=== PATIENT | female | born 1975 | race Caucasian/White ===

== ENCOUNTER → 2021-04-14 11:25 | Outpatient (BNVA) | payer SELFPAY | PROVIDERS: Visit Provider Nurse Practitioner Family | DX: Z20.822 Contact with and (suspected) exposure to COVID-19 (principal) | CPT/HCPCS: 87426 ==

== ENCOUNTER 2021-06-06 11:05 | Observation (INO) | payer OTHER, SELFPAY ==
[2021-06-06 11:21] VITALS: BP 125/80; PULSE 95; RESP 16; TEMP 36.9; O2SAT 97; BMI 25.7
--- NOTE | 2021-06-06 11:38 | ECG_ITS ---
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 Measurements Intervals [place] Rate: 93 P: 45 LA: 152 QRS: 41 QRSD: 89 T: 26 QT: 326 QTc: 407 Interpretive Statements SINUS RHYTHM MODERATE T-WAVE ABNORMALITY, CONSIDER ANTERIOR ISCHEMIA [-0.1+ mV T-WAVE IN V3/V4] No previous ECG available for comparison Electronically Signed On 06-06-2021 20:52:21 HAND COMPOSITOR by Flor Salas M.D. [email or web address] Maplou[employer] [facility].Osteogenix/store/Ov/[id number]
--- NOTE | 2021-06-06 11:39 | W.ED.CHESTPA ---
Documented by User: NICO Gomez 06/06/21 11:40 HPI - Chest Pain General: Chief Complaint: Chest Pain Stated Complaint: CHEST PAIN Time Seen by Provider: 06/06/21 11:36 History of Present Illness: HPI narrative: HerComplains about chest pain ongoing for about a month. Went to doctor's office today and was seen and said she did not tell provider about it and then she came up here to get lab work done she said her chest started hurting again. So she said she should come in and get checked out since she was already here to get blood drawn. Denies any shortness of breath. Does have history of anxiety and said it might be anxiety. Denies chest pressure diaphoresis or nausea vomiting she said pains more up in her neck and her left arm MD complaint: chest discomfort Onset (ago): week(s) Timing of current episode: episodic Prior episodes: Yes Onset: during exertion Pain location: left chest Pain radiation: left arm and neck Severity: mild Quality: sharp Relieving factors: remaining still Exacerbating factors: movement Associated symptoms: Reports no associated symptoms; Deny abdominal pain, dyspnea, fever(s), nausea or vomiting Review of Systems Const: Denies: fever(s), chills or body aches Eyes: Denies: change in vision or blurry vision ENMT: Denies: throat pain or nasal congestion Card: Reports: chest pain; Denies: dyspnea on exertion Resp: Denies: dyspnea, productive cough or non-productive cough GI: Denies: abdominal pain, nausea or vomiting Musc: Denies: extremity pain Skin/Breast: Denies: rash Neuro: Denies: headache(s) Psych: Reports: anxiety; Denies: depression Isaias/Lymph: Denies: easy bruising [facility] ED PFSH: Social History (Updated 06/06/21 @ 09:19 by Nate Donohue LPN) Smoking and tobacco status: former smoker Alcohol intake: never Physical Exam Const: COMMON NORMALS: no acute distress, average body habitus and patient oriented x3 HENMT: COMMON NORMALS: normocephalic HEAD & SCALP: normal to inspection and normocephalic FACE & SINUS: normal facial exam Eye: COMMON NORMALS: conjunctivae normal GENERAL EYE: appearance normal, both eyes and all related structures CONJUNCTIVA: Yes conjunctivae normal Neck/C-Spine: COMMON NORMALS: no JVD Chest: COMMONS NORMALS: normal inspection of the chest Resp: COMMON NORMALS: normal respiratory effort and clear to auscultation bilaterally AUSCULTATION: clear to auscultation bilaterally Cardio: COMMON NORMALS: no JVD, regular rate and regular rhythm RATE: regular rate RHYTHM: regular rhythm GI: COMMON NORMALS: Normal to inspection, nondistended, normoactive bowel sounds present Extremity: COMMON NORMALS: normal to inspection and full ROM Neuro: COMMON NORMALS: patient oriented x3 Course Vital Signs: Vital signs: Vital Signs Temperature 97.8 F 06/06/21 12:20 Pulse Rate 75 06/06/21 13:53 Respiratory Rate 18 06/06/21 13:53 Blood Pressure 103/75 06/06/21 13:53 Pulse Oximetry 98 06/06/21 13:53 MDM - Chest Pain Lab Data: Labs: Lab Results 06/06/21 06/06/21 06/06/21 12:38 12:38 12:38 WBC 4.7 10^3/uL 10^3/ uL (4.0-10.0) RBC 4.00 10^6/uL L 10 ^6/uL (4.1-5.3) Hgb 11.7 g/dL g/dL (11.5-15.3) Hct 36.0 % L % (37.0-47.0) MCV 90.0 fl fl (81-99) MCH 29.3 pg pg (28.0-34.0) MCHC 32.5 g/dL g/dL (30.0-36.0) RDW 12.8 % % (12.1-15.1) Plt Count 201 10^3/cmm 10^3 /cmm (130-400) MPV 10.1 fL fL (7.4-10.4) Neut % (Auto) 37.1 % % Lymph % (Auto) 52.5 % % [place] % (Auto) 7.7 % % Eos % (Auto) 2.1 % % Baso % (Auto) 0.4 % % Neut # (Auto) 1.74 10^3/uL L 10 ^3/uL (1.8-7.7) Lymph # (Auto) 2.5 10^3/uL 10^3/ uL (0.8-4.8) [place] # (Auto) 0.4 10^3/uL 10^3/ uL (0.2-0.9) Eos # (Auto) 0.1 10^3/uL 10^3/ uL (0.0-0.8) Baso # (Auto) 0.0 10^3/uL 10^3/ uL (0.0-0.1) Nucleated RBC % (a uto) 0 % % Nucleated RBCs # 0.0 /100WBC /100W BC PT 14.00 SECONDS SEC ONDS (12.1-14.9) INR 1.05 (0.8-1.2) Sodium 138 mmol/L mmol/L (136-145) Potassium 3.9 mmol/L mmol/L (3.5-5.1) Chloride 106 mmol/L mmol/L (98-107) Carbon Dioxide 21 mmol/L L mmol/ L (22-29) Anion Gap 14.9 (5-19) BUN 14 mg/dL mg/dL (6-20) Creatinine 0.7 mg/dL mg/dL (0.5-0.9) GFR Calculation 89.7 mL/min L mL/ min (90-130) Glucose 116 mg/dL H mg/dL (65-115) Calculated Osmolal ity 287 mOsm/kg mOsm/ kg (285-295) Calcium 8.6 mg/dL mg/dL (8.5-10.5) Total Bilirubin 0.2 mg/dL mg/dL (0.15-1.2) AST 13 U/L U/L (0-32) ALT 11 U/L U/L (0-33) Alkaline Phosphata se 85 IU/L IU/L (35-105) Troponin T Baselin e Total Protein 7.2 g/dL g/dL (6.6-8.7) Albumin 4.3 g/dL g/dL (3.5-5.2) Globulin 2.9 g/dL g/dL (1.3-4.6) 06/06/21 12:38 WBC RBC Hgb Hct MCV MCH MCHC RDW Plt Count MPV Neut % (Auto) Lymph % (Auto) [place] % (Auto) Eos % (Auto) Baso % (Auto) Neut # (Auto) Lymph # (Auto) [place] # (Auto) Eos # (Auto) Baso # (Auto) Nucleated RBC % (a uto) Nucleated RBCs # PT INR Sodium Potassium Chloride Carbon Dioxide Anion Gap BUN Creatinine GFR Calculation Glucose Calculated Osmolal ity Calcium Total Bilirubin AST ALT Alkaline Phosphata se Troponin T Baselin e 6 ng/L ng/L (0-10) Total Protein Albumin Globulin Discharge Plan Discharge Prescriptions: No Action gabapentin 100 mg capsule 100 mg PO BID RF: 0 albuterol sulfate [Ventolin HFA] 90 mcg/actuation HFA aerosol inhaler 2 puff inhalation Q6H PRN (Reason: shortness of breath or wheezing) Qty: 8.5 RF: 0 clonazepam 0.5 mg tablet 0.5 mg PO DAILY RF: 0 topiramate [Topamax] 50 mg tablet 50 mg PO DAILY RF: 0 lamotrigine 25 mg tablet 50 mg PO DAILY RF: 0 oxcarbazepine [Trileptal] 150 mg tablet 150 mg PO DAILY RF: 0 trazodone 50 mg tablet 50 mg PO DAILY RF: 0 Coding Level of Care Code ED Drycleaner for Chg Fwd Exam Comprehensive Documented by User: Lisa Thapa MD 06/06/21 14:07 HPI - Chest Pain General: Chief Complaint: Chest Pain Stated Complaint: CHEST PAIN Time Seen by Provider: 06/06/21 11:36 [facility] ED PFSH: Social History (Updated 06/06/21 @ 09:19 by Nate Donohue LPN) Smoking and tobacco status: former smoker Alcohol intake: never Course Vital Signs: Vital signs: Vital Signs Temperature 97.8 F 06/06/21 12:20 Pulse Rate 75 06/06/21 13:53 Respiratory Rate 18 06/06/21 13:53 Blood Pressure 103/75 06/06/21 13:53 Pulse Oximetry 98 06/06/21 13:53 MDM - Chest Pain MDM Narrative: Medical decision making narrative: Patient is a 46-year-old female with history of prior smoking presented to emergency room with complaints of intermittent ongoing chest pain for the last few weeks now worsening today. Patient reports onset of pain upon waking up at 8 AM this morning. On exam, hemodynamically stable, pulses 2+ bilaterally, no other focal complaints. Patient has T wave inversion V3-V5. It is unclear how long this patient had these findings. First troponin of 6. Performed a shared decision-making with patient for admission versus discharge outpatient stress test for EKG changes. Since we are not able to perform stress test in the next few weeks given backlog of cases, patient elects to stay in the hospital for cardiac evaluation. Disposition: admission Lab Data: Labs: Lab Results 06/06/21 06/06/21 06/06/21 12:38 12:38 12:38 WBC 4.7 10^3/uL 10^3/ uL (4.0-10.0) RBC 4.00 10^6/uL L 10 ^6/uL (4.1-5.3) Hgb 11.7 g/dL g/dL (11.5-15.3) Hct 36.0 % L % (37.0-47.0) MCV 90.0 fl fl (81-99) MCH 29.3 pg pg (28.0-34.0) MCHC 32.5 g/dL g/dL (30.0-36.0) RDW 12.8 % % (12.1-15.1) Plt Count 201 10^3/cmm 10^3 /cmm (130-400) MPV 10.1 fL fL (7.4-10.4) Neut % (Auto) 37.1 % % Lymph % (Auto) 52.5 % % [place] % (Auto) 7.7 % % Eos % (Auto) 2.1 % % Baso % (Auto) 0.4 % % Neut # (Auto) 1.74 10^3/uL L 10 ^3/uL (1.8-7.7) Lymph # (Auto) 2.5 10^3/uL 10^3/ uL (0.8-4.8) [place] # (Auto) 0.4 10^3/uL 10^3/ uL (0.2-0.9) Eos # (Auto) 0.1 10^3/uL 10^3/ uL (0.0-0.8) Baso # (Auto) 0.0 10^3/uL 10^3/ uL (0.0-0.1) Nucleated RBC % (a uto) 0 % % Nucleated RBCs # 0.0 /100WBC /100W BC PT 14.00 SECONDS SEC ONDS (12.1-14.9) INR 1.05 (0.8-1.2) Sodium 138 mmol/L mmol/L (136-145) Potassium 3.9 mmol/L mmol/L (3.5-5.1) Chloride 106 mmol/L mmol/L (98-107) Carbon Dioxide 21 mmol/L L mmol/ L (22-29) Anion Gap 14.9 (5-19) BUN 14 mg/dL mg/dL (6-20) Creatinine 0.7 mg/dL mg/dL (0.5-0.9) GFR Calculation 89.7 mL/min L mL/ min (90-130) Glucose 116 mg/dL H mg/dL (65-115) Calculated Osmolal ity 287 mOsm/kg mOsm/ kg (285-295) Calcium 8.6 mg/dL mg/dL (8.5-10.5) Total Bilirubin 0.2 mg/dL mg/dL (0.15-1.2) AST 13 U/L U/L (0-32) ALT 11 U/L U/L (0-33) Alkaline Phosphata se 85 IU/L IU/L (35-105) Troponin T Baselin e Total Protein 7.2 g/dL g/dL (6.6-8.7) Albumin 4.3 g/dL g/dL (3.5-5.2) Globulin 2.9 g/dL g/dL (1.3-4.6) 06/06/21 12:38 WBC RBC Hgb Hct MCV MCH MCHC RDW Plt Count MPV Neut % (Auto) Lymph % (Auto) [place] % (Auto) Eos % (Auto) Baso % (Auto) Neut # (Auto) Lymph # (Auto) [place] # (Auto) Eos # (Auto) Baso # (Auto) Nucleated RBC % (a uto) Nucleated RBCs # PT INR Sodium Potassium Chloride Carbon Dioxide Anion Gap BUN Creatinine GFR Calculation Glucose Calculated Osmolal ity Calcium Total Bilirubin AST ALT Alkaline Phosphata se Troponin T Baselin e 6 ng/L ng/L (0-10) Total Protein Albumin Globulin Imaging Data^: Other Imaging: Radiologist's impression: [facility], [place] [address]GTgv ReportSigned Patient: Cari Weinberg #: [id number]: 1975Acct#:[id number]/Sex: 46 / FADM Date: 06/06/21Loc: ERRoom/Bed:Attending Dr: Ordering Provider/Ordering MD: Katt Schrader , [facility] Date of Service: 06/06/21 Procedure(s): XR chest 1V portable [id number] Accession Number(s): [id number] Report Number: [id number] PROCEDURE INFORMATION: Exam: XR Chest Exam date and time: 06/06/2021 11:38 AM Age: 46 years old Clinical indication: Pain; Angina pectoris; Additional info: Cp TECHNIQUE: Imaging protocol: XR of the chest. Views: 1 view. COMPARISON: No relevant prior studies available. FINDINGS: Lungs: Unremarkable. No consolidation. Pleural spaces: Unremarkable. No pleural effusion. No pneumothorax. Heart/Mediastinum: Unremarkable. No cardiomegaly. Bones/joints: Unremarkable. XR/XR chest 1V portable [id number] IMPRESSION: No acute findings. Dictated By:Deejay Sampson By:Deejay Sampson Date/Time:06/06/21 1155DD/ 1138 Discharge Plan Discharge Prescriptions: No Action gabapentin 100 mg capsule 100 mg PO BID RF: 0 albuterol sulfate [Ventolin HFA] 90 mcg/actuation HFA aerosol inhaler 2 puff inhalation Q6H PRN (Reason: shortness of breath or wheezing) Qty: 8.5 RF: 0 clonazepam 0.5 mg tablet 0.5 mg PO DAILY RF: 0 topiramate [Topamax] 50 mg tablet 50 mg PO DAILY RF: 0 lamotrigine 25 mg tablet 50 mg PO DAILY RF: 0 oxcarbazepine [Trileptal] 150 mg tablet 150 mg PO DAILY RF: 0 trazodone 50 mg tablet 50 mg PO DAILY RF: 0 Coding Level of Care Code ED Drycleaner for Chg Fwd Exam Comprehensive
[2021-06-06 12:20] VITALS: BP 133/89; PULSE 88; PULSE 89; RESP 24; TEMP 36.6; O2SAT 99
[2021-06-06] MEDS: acetaminophen 325 mg Tablet 650 MG PO (12:57)
[2021-06-06] MEDS: aspirin 325 mg Tablet PO (12:58)
[2021-06-06 12:59] LABS: Basophils % 0.4 %; Eosinophils # 0.1 10^3/uL (0.0-0.8); Eosinophils % 2.1 %; Hemoglobin 11.7 g/dL (11.5-15.3); Lymphocytes # 2.5 10^3/uL (0.8-4.8); Lymphocytes % 52.5 %; Mean Corpuscular HGB Conc 32.5 g/dL (30.0-36.0); Mean Corpuscular Hemoglobin 29.3 pg (28.0-34.0); Mean Platelet Volume 10.1 fL (7.4-10.4); Monocytes # 0.4 10^3/uL (0.2-0.9); Monocytes % 7.7 %; Neutrophils # 1.74 10^3/uL (1.8-7.7); Neutrophils % 37.1 %; Nucleated Red Blood Cells % 0 %; Platelet Count 201 10^3/cmm (130-400); Red Cell Distribution Width 12.8 % (12.1-15.1); White Blood Count 4.7 10^3/uL (4.0-10.0)
[2021-06-06 13:09] LABS: INR 1.05 (0.8-1.2)
[2021-06-06 13:20] LABS: Alanine Aminotransferase 11 U/L (0-33); Albumin Level 4.3 g/dL (3.5-5.2); Alkaline Phosphatase 85 IU/L (35-105); Anion Gap 14.9 (5-19); Aspartate Amino Transferase 13 U/L (0-32); Blood Urea Nitrogen 14 mg/dL (6-20); Calcium 8.6 mg/dL (8.5-10.5); Carbon Dioxide 21 mmol/L (22-29); Chloride 106 mmol/L (98-107); Globulin 2.9 g/dL (1.3-4.6); Glomerular Filtration Rate 89.7 mL/min (90-130); Glucose 116 mg/dL (65-115); Osmolality Calculated 287 mOsm/kg (285-295); Potassium 3.9 mmol/L (3.5-5.1); Sodium 138 mmol/L (136-145); Total Bilirubin 0.2 mg/dL (0.15-1.2); Total Protein 7.2 g/dL (6.6-8.7)
[2021-06-06 13:21] LABS: Troponin(5th) Baseline 6 ng/L (0-10)
--- NOTE | 2021-06-06 13:38 | ECG_ITS ---
[facility] Test Date: 2021-06-06 Pat Name: Re Weinberg Department: Room: Gender: Female Performance Improvement Coordinator: : 1975 Requested By: Camden Schrader Order Number: [id number] Reading MD: Flor Salas M.D. Measurements Intervals [place] Rate: 68 P: 57 SC: 180 QRS: 39 QRSD: 89 T: 45 QT: 392 QTc: 418 Interpretive Statements SINUS RHYTHM MODERATE T-WAVE ABNORMALITY, CONSIDER ANTERIOR ISCHEMIA [-0.1+ mV T-WAVE IN V3/V4] Compared to ECG 06/06/2021 11:20:24 No significant changes Electronically Signed On 06-06-2021 20:57:01 TECHNICIAN ANATOMIC PATHOLOGY by Flor Salas M.D. [email or web address] [id number]
[2021-06-06 13:53] VITALS: BP 103/75; PULSE 75; RESP 18; O2SAT 98
[2021-06-06] MEDS: ondansetron 2 mg/ML SDV 2 mL 4 MG IVP (14:12)
[2021-06-06] MEDS: sodium chloride 0.9% 1,000 ML 999 ML IV (14:13)
[2021-06-06 14:35] LABS: Troponin 5 2HR Delta 0 ABS# (0-10)
--- NOTE | 2021-06-06 16:48 | PC.NURSE ---
Report called to floor, given to TONY Pena
--- NOTE | 2021-06-06 17:03 | P.HP_ITS ---
Providers/Chief Complaint Admitting Physician: Augie Hoffmann Chief Complaint: CHEST PAIN History of Present Illness Pleasant 46-year-old lady with history of migraine headaches, bipolar disorder, recurrent episodes of chest discomfort over the last month, recently a stressful situation at home, recently quit smoking within the last several months, presents to hospital due to recurrent episodes of chest discomfort/squeezing, which started in her back, progressing to left chest, jaw, arm. Also recently episodes of dizziness, sometimes at rest, other times with exertion. Denies any changes to her medications which she has been taking for a long time. Today she was driving from her primary care doctor's appointment, and suffered an episode of about 5 minutes of pain which felt more intense, different, so decided come to ER. Reports similar episodes about a year ago in [place] at which time had a stress test which was unremarkable, But states at this time episodes felt a little bit different. In ER with noted T wave inversion V3/V4. Review of Systems Const: Denies: fever(s), chills, body aches or malaise Eyes: Denies: change in vision or eye redness ENMT: Denies: throat pain, oral sores or ear or mastoid pain Card: Reports: chest pain; Denies: edema, pre-syncope or dyspnea on exertion Resp: Denies: dyspnea, productive cough, change in phlegm color or hemoptysis GI: Denies: abdominal pain, nausea, vomiting, diarrhea, constipation, hematochezia or melena : Denies: flank pain, urinary frequency or hematuria Musc: Denies: back pain, joint swelling or joint redness Skin/Breast: Denies: rash, sores or new lesions Neuro: Reports: dizziness; Denies: headache(s), numbness in extremities, weakness in extremities, confusion or seizure-like activity Endo: Denies: polyuria or polydipsia Isaias/Lymph: Denies: easy bleeding or purpura All/Imm: Denies: urticaria, throat swelling or tongue swelling Medications/Allergies Home Medications Medication Instructions Recorded Confirmed Last Taken Type clonazepam 0.5 mg tablet 0.25 mg PO QAM 04/14/21 06/06/21 06/06/21 History albuterol sulfate 90 mcg/actuation 2 puff INHALATION Q6H PRN #8.5 g 05/16/21 06/06/21 Unknown Rx aerosol inhaler gabapentin 1,200 mg PO BID 06/06/21 06/06/21 06/06/21 08:00 History lamotrigine 400 mg PO QAM 06/06/21 06/06/21 06/06/21 History omeprazole [Prilosec] 40 mg PO QAM 06/06/21 06/06/21 06/06/21 08:00 History oxcarbazepine 300 mg PO BID 06/06/21 06/06/21 06/06/21 08:00 History topiramate 200 mg PO BEDTIME 06/06/21 06/06/21 06/05/21 History trazodone 200 mg PO BEDTIME 06/06/21 06/06/21 Unknown History Allergies Allergy/AdvReac Type Severity Reaction Status Date / Time Sulfa (Sulfonamide Allergy Severe closed Verified 06/06/21 11:14 Antibiotics) throat haloperidol [From Haldol] Allergy Intermediate increased Verified 06/06/21 11:14 anxiety levofloxacin [From Levaquin] Allergy Intermediate hives Verified 06/06/21 11:14 ketorolac [From Toradol] Allergy ALGY-Swell Verified 06/06/21 14:41 Lip/Tongue/Throat metoclopramide [From Reglan] Allergy ALGY-Swell Verified 06/06/21 14:41 Lip/Tongue/Throat PFSH Acute PFSH: Medical History Bipolar disorder Migraines Osteonecrosis of hip Surgical History H/O shoulder surgery History of hip replacement, total History of surgery of head Hx of breast biopsy Family History Other Diabetes Hypertension Social History Smoking and tobacco status: former smoker Alcohol intake: never Substance/Drug Use: never Household members: children Marital status: Current occupational status: employed Vitals/I&O/Wt Last Vital Signs Temp 97.8 F 06/06/21 12:20 Pulse 75 06/06/21 13:53 Resp 18 06/06/21 13:53 BP 103/75 06/06/21 13:53 Pulse Ox 98 06/06/21 13:53 06/06/21 06/06/21 06/06/21 06:59 14:59 22:59 Intake Total 799.2 / 799.2 Balance 799.2 / 799.2 Weight last 48 hrs Weight 76.657 kg Physical Exam Const: COMMON NORMALS: no acute distress and patient oriented x3 HENMT: COMMON NORMALS: oropharynx normal Neck/C-Spine: COMMON NORMALS: no JVD Resp: COMMON NORMALS: normal respiratory effort and clear to auscultation bilaterally AUSCULTATION: clear to auscultation bilaterally Cardio: COMMON NORMALS: no JVD, regular rhythm, S1 normal heart sound present, S2 normal heart sound present and No murmurs present (Cardio) RHYTHM: regular rhythm HEART SOUNDS: S1 normal heart sound present and S2 normal heart sound present GI: COMMON NORMALS: Normal to inspection, nondistended, normoactive bowel sounds present, Soft to palpation and non-tender PALPATION: Yes Soft to palpation Extremity: COMMON NORMALS: no joint enlargement and no pedal edema Neuro: COMMON NORMALS: patient oriented x3 and moves all extremities Skin: COMMON NORMALS: no rashes or lesions noted GENERAL SKIN EXAM: no rashes or lesions noted Data : 06/06/21 12:38 06/06/21 12:38 A&P Assessment and plan (1) Chest tightness: Episodes of chest tightness recurrent over the last month, with today's episode feels different, with reported starting at the back, radiating to the left side jaw, left arm, with episodes of lightheadedness, worse when driving today. Recently quit smoking. Reports some stress at home. By week ago also had an episode of subjective fever, chills which had resolved. Complete troponin and EKG series. Given symptoms started in the back, more severe than usual, discussed with her additional assessment by CT angiogram of great vessels to exclude dissection. No assessed by TTE given episodes of lightheadedness. Monitor on telemetry. Nitroglycerin as needed. Discussed with her then obtaining stress test tomorrow. Status: Acute Attestations Medical Necessity Statement*: Place in observation for additional assessment management of episodes of chest pain. Coding Level of Care Code Acute Virtualization Engineer for Chg Fwd Diagnoses Chest tightness R07.89
--- NOTE | 2021-06-06 17:33 | CTR_ITS ---
PROCEDURE INFORMATION: Exam: CTA Chest With and Without Contrast Exam date and time: 06/06/2021 5:33 PM Age: 46 years old Clinical indication: Sternal or substernal pain; Additional info: Back/chest pain, assess for dissection TECHNIQUE: Imaging protocol: Computed tomographic angiography of the chest with contrast. 3D rendering (Not supervised by radiologist): MIP and/or 3D reconstructed images were created by the technologist. Total images: 515 Radiation optimization: All CT scans at this facility use at least one of these dose optimization techniques: automated exposure control; mA and/or kV adjustment per patient size (includes targeted exams where dose is matched to clinical indication); or iterative reconstruction. Contrast material: OMNI 350; Contrast volume: 95 ml; Contrast route: INTRAVENOUS (IV); COMPARISON: CR XR chest 1V portable [id number] 06/06/2021 11:42 AM RADIATION DOSE METRICS: Total DLP (mGy-cm): 960.82 FINDINGS: Tubes, catheters and devices: Right total shoulder prosthesis. Associated marked metal artifact. Pulmonary arteries: No visible evidence of pulmonary embolism/pulmonary arterial thrombus. Aorta: The thoracic aorta is nonaneurysmal. No visible intimal flap or dissection. Thyroid: Examination reveals a small left 8 mm thyroid nodule or colloid cyst. No follow-up recommended. Lungs: No visible active interstitial or alveolar airspace disease. Pleural spaces: No pneumothorax. No pleural effusion. Heart: Cardiac size within normal limits. No visible pericardial effusion. No visible coronary artery disease. Lymph nodes: No visible active mediastinal or hilar lymphadenopathy. Spleen: 27 mm splenic cyst. Bones/joints: No visible acute osseous abnormality. Soft tissues: Unremarkable. CT/CT angio chest [id number] IMPRESSION: 1. The thoracic aorta is nonaneurysmal. No intimal flap or dissection. 2. No visible evidence of pulmonary embolism/pulmonary arterial thrombus. COMMENTS: Consistent with the [place] [employer]'s Incidental Findings Committee white paper (J Am Rohit Radiol 2015): In patients aged 35 years and older with an incidental thyroid nodule equal to or greater than 1.[address], MRI or extrathyroidal US, further evaluation with dedicated thyroid US is recommended for patients with normal life expectancy and without comorbidities. For smaller nodules without suspicious features, no further evaluation or follow up is recommended.
--- NOTE | 2021-06-06 17:38 | ECG_ITS ---
[facility] Test Date: 2021-06-06 Pat Name: Re Weinberg Department: Room: 255 Gender: Female Seating Captain: : 1975 Requested By: Camden Schrader Order Number: [id number] Rylan MD: Flor Salas M.D. Measurements Intervals [place] Rate: 67 P: 63 IN: 184 QRS: 34 QRSD: 89 T: 36 QT: 381 QTc: 403 Interpretive Statements SINUS RHYTHM NONSPECIFIC T-WAVE ABNORMALITY Compared to ECG 06/06/2021 15:59:04 Possible ischemia no longer present T-wave abnormality still present Electronically Signed On 06-06-2021 20:57:52 GUEST RELATION OFFICER by Flor Salas M.D. [email or web address] [id number]
[2021-06-06] MEDS: iohexol 350 mg/mL 100 mL Btl IV (18:12)
[2021-06-06 19:36] LABS: Troponin 5 6HR Delta 0 ng/L (0-12)
[2021-06-06 20:00] VITALS: BP 105/70; PULSE 80; RESP 18; TEMP 36.6; O2SAT 97
[2021-06-06] MEDS: gabapentin 400 mg Capsule 1200 MG PO (20:41)
[2021-06-06] MEDS: OXcarbazepine 300 mg Tablet PO (20:42)
[2021-06-06] MEDS: topiramate 100 mg Tablet 200 MG PO (20:42)
[2021-06-06] MEDS: trazodone 100 mg Tablet 200 MG PO (20:42)
[2021-06-06 22:00] VITALS: PULSE 68
[2021-06-07] VITALS (9 sets, daily range): BP systolic 98–110; BP diastolic 67–72; PULSE 72–97; RESP 16–18; TEMP 36.6–36.9; O2SAT 94–98
[2021-06-07] MEDS: ondansetron 4 MG Tablet PO ×2 (00:50→10:10)
[2021-06-07] MEDS: acetaminophen 325 mg Tablet 650 MG PO ×4 (00:50→16:57)
[2021-06-07] MEDS: CLONazepam 0.5 mg Tablet 0.25 MG PO (05:35)
[2021-06-07] MEDS: lamoTRIgine 100 mg Tablet 400 MG PO (05:36)
[2021-06-07] MEDS: pantoprazole DR 40 mg Tablet PO (05:36)
[2021-06-07 06:22] LABS: Basophils % 0.6 %; Eosinophils # 0.1 10^3/uL (0.0-0.8); Eosinophils % 2.5 %; Hematocrit 36.8 % (37.0-47.0); Hemoglobin 11.9 g/dL (11.5-15.3); Lymphocytes % 56.8 %; Mean Corpuscular HGB Conc 32.3 g/dL (30.0-36.0); Mean Corpuscular Hemoglobin 29.8 pg (28.0-34.0); Mean Corpuscular Volume 92.2 fl (81-99); Mean Platelet Volume 10.2 fL (7.4-10.4); Monocytes # 0.3 10^3/uL (0.2-0.9); Monocytes % 7.3 %; Neutrophils # 1.16 10^3/uL (1.8-7.7); Neutrophils % 32.8 %; Nucleated Red Blood Cells % 0 %; Platelet Count 191 10^3/cmm (130-400); Red Blood Count 3.99 10^6/uL (4.1-5.3); Red Cell Distribution Width 12.9 % (12.1-15.1); White Blood Count 3.5 10^3/uL (4.0-10.0)
[2021-06-07 06:47] LABS: Alanine Aminotransferase 10 U/L (0-33); Alkaline Phosphatase 83 IU/L (35-105); Aspartate Amino Transferase 15 U/L (0-32); Blood Urea Nitrogen 13 mg/dL (6-20); Calcium 8.6 mg/dL (8.5-10.5); Carbon Dioxide 17 mmol/L (22-29); Chloride 109 mmol/L (98-107); Globulin 2.8 g/dL (1.3-4.6); Glomerular Filtration Rate 89.7 mL/min (90-130); Glucose 103 mg/dL (65-115); Osmolality Calculated 288 mOsm/kg (285-295); Sodium 139 mmol/L (136-145); Thyroid Stimulating Hormone 0.66 uIU/mL (0.27-4.20); Total Bilirubin 0.2 mg/dL (0.15-1.2); Total Protein 6.8 g/dL (6.6-8.7)
[2021-06-07 06:54] LABS: Anion Gap 17.3 (5-19); Potassium 4.3 mmol/L (3.5-5.1)
[2021-06-07] MEDS: regadenoson 0.4 Mg/5 ml Syringe IVP (07:59)
--- NOTE | 2021-06-07 08:00 | ECG_ITS ---
[facility] Test Date: 2021-06-07 Pat Name: Re Weinberg Department: Room: 255 Gender: Female Manager Maintenance: Sarita Bocanegra : 1975 Requested By: Augie Hoffmann Order Number: [id number] Rylan MD: JAZZY SPENCER Interpretive Statements NAME OF STUDY: LEXISCAN SESTAMIBI STRESS TEST INDICATION: Chest Pain, SEND RESULTS TO SHEILA BRYANT NOTE: Please note that this is the electrocardiogram portion of the Lexiscan/Sestamibi stress test. The perfusion scan will be documented separately. DATA: Baseline heart rate was 71 beats per minute. Baseline blood pressure was 109/77 millimeters of mercury. Target heart rate was 173. Maximum heart rate achieved was 110. which was 63 % of the predicted target heart rate. Maximum blood pressure was 126/83 millimeters of mercury. The reason for ending the test was completion of the protocol. The patient did not experience any symptoms. ELECTROCARDIOGRAM: BASELINE: Sinus rhythm. Normal axis. Otherwise, no ST-T changes suggestive of ischemia noted. No arrhythmia noted. EXERCISE: After Lexiscan injection, no ST-T changes suggestive of ischemic noted. No arrhythmia noted. 1. EKG not suggestive of ischemia 2. Lexiscan injection unremarkable. 3. Perfusion scan will be documented separately. Electronically Signed On 06-12-2021 15:11:57 RN PROCEDURE by JAZZY SPENCER [id number]
[2021-06-07] MEDS: OXcarbazepine 300 mg Tablet PO ×2 (09:34→17:35)
[2021-06-07] MEDS: gabapentin 400 mg Capsule 1200 MG PO ×2 (09:34→17:35)
--- NOTE | 2021-06-07 16:59 | PM.DCS ---
Discharge Providers Date of Admission: 06/06/21 17:33 Date of Discharge: June 07, 2021 Attending Provider at Admission: Augie Hoffmann Attending Provider at Discharge: Augie Hoffmann Diagnoses at Discharge Discharge Diagnosis (1) Chest tightness: Status: Acute Reason for Visit Reason for Visit: CHEST PAIN Hospital Course Hospital Course Pleasant 46-year-old lady with history of migraine headaches, bipolar disorder, recurrent episodes of chest discomfort over the last month, with similar episodes about a year ago with stress test performed in [place] she reports without abnormality, recently with stressful stress at home, quit smoking little in the last several months as well, presented to the hospital due to additional episode of chest discomfort/squeezing, which he felt was different than usual, starting her back, radiating to her left arm, anterior, with numbness/tingling of several fingers of the left hand. This occurred while she was driving. She since then reports on and off episodes of the discomfort, unrelated to activity. She had felt perhaps sometimes when she lays back is feeling episodes as well. She reports in addition longstanding history of heartburn. Takes omeprazole at home. Does report discomfort sometimes worse in the morning. In ER on assessment troponin series not suggestive of acute OR. EKG with nonspecific T wave abnormality, initially some noted T wave inversion in V3/V4. She does report episode of chills, subjective fever about a week ago, and so consideration of pericarditis was discussed with her, although there is no evidence to suggest pericarditis on EKGs, with marked CKD with only some flattening of T waves in V3/V4. She has had persistence of discomfort no left neck, rating to left arm. He also resolved but better when she rests the arm. No tenderness on palpation, no erythema, swelling of shoulder joint or neck. She is remained afebrile in the hospital. No suggestion of acute infection at this time. She was additionally assessed by stress testing which showed no evidence of ischemia. Additionally given pain in the back was assessed by CT angiogram of great vessels, with finding of nonaneurysmal thoracic aorta without intimal flap or dissection. No obvious PE or arterial thrombus on this nondedicated study. Additionally assessed by echocardiogram which showed normal ejection fraction, no valve abnormalities, no regional wall motion abnormality, no pericardial effusion. As she later reports having unilateral swelling of left leg about a week earlier which has resolved. Nonspecific/atypical chest pain with cough so far not clearly identified, and she reports family history of blood clots, as per discussion with her she is scheduled additionally for outpatient VQ scan given she had just had nuclear stress test, as well as CT angiogram great vessels yesterday, and until the test is performed is empirically started on Eliquis after discussion of risks. With possible cervical radiculopathy we also discussed with her management of her symptoms. In case of persistent symptoms consider additional assessment by cervical MRI. Due to heartburn symptoms we also discussed foods to avoid, other measures to reduce symptoms. PPI currently is increased to twice daily. In case of persistent symptoms please refer for additional evaluation by endoscopy. She reports a stressful situation at home as well. Please follow-up on emotional wellbeing in case this is also contributing to symptoms. Physical Exam Const: COMMON NORMALS: no acute distress, patient oriented x3 and alert ORIENTATION/CONSCIOUSNESS: Yes awake HENMT: COMMON NORMALS: oropharynx normal Neck/C-Spine: COMMON NORMALS: no JVD Resp: COMMON NORMALS: normal respiratory effort and clear to auscultation bilaterally AUSCULTATION: clear to auscultation bilaterally Cardio: COMMON NORMALS: no JVD, regular rhythm, S1 normal heart sound present, S2 normal heart sound present and No murmurs present (Cardio) RHYTHM: regular rhythm HEART SOUNDS: S1 normal heart sound present and S2 normal heart sound present GI: COMMON NORMALS: Normal to inspection, nondistended, normoactive bowel sounds present, Soft to palpation and non-tender PALPATION: Yes Soft to palpation Extremity: COMMON NORMALS: no joint enlargement and no pedal edema Neuro: COMMON NORMALS: patient oriented x3 and moves all extremities SENSORIUM/ORIENTATION: Yes alert Skin: COMMON NORMALS: no rashes or lesions noted GENERAL SKIN EXAM: no rashes or lesions noted Discharge Data Data Completed and Pending: Completed Studies During Hospitalization Category Date Time Status CT angio chest 71 [id number] Routine Cat Scan 06/06/21 17:33 Completed Sestamibi Stress Test Request Alejandro ne Exams 06/07/21 08:00 Draft XR chest 1V pepito ble [id number] Stat Exams 06/06/21 11:38 Completed NM nancy perf SPECT r/s* [id number] Routin e Nuc Med 06/07/21 17:33 Completed CV. echo complete * [id number] Routine Ultrasound 06/07/21 17:33 Completed Pending at discharge Category Date Time Status Complete Blood Co unt w/Auto AM LABS Lab 06/08/21 04:00 Ordered Complete Blood Co unt w/Auto AM LABS Lab 06/09/21 04:00 Ordered Comprehensive Met abolic Panel AM LA BS Lab 06/08/21 04:00 Ordered Comprehensive Met abolic Panel AM LA BS Lab 06/09/21 04:00 Ordered Labs from last 24 hours 06/07/21 06/07/21 06/06/21 05:12 05:12 19:09 WBC 3.5 L RBC 3.99 L Hgb 11.9 Hct 36.8 L MCV 92.2 MCH 29.8 MCHC 32.3 RDW 12.9 Plt Count 191 MPV 10.2 Neut % (Auto) 32.8 Lymph % (Auto) 56.8 [place] % (Auto) 7.3 Eos % (Auto) 2.5 Baso % (Auto) 0.6 Neut # (Auto) 1.16 L Lymph # (Auto) 2.0 [place] # (Auto) 0.3 Eos # (Auto) 0.1 Baso # (Auto) 0.0 Nucleated RBC % (a uto) 0 Nucleated RBCs # 0.0 Sodium 139 Potassium 4.3 Chloride 109 H Carbon Dioxide 17 L Anion Gap 17.3 BUN 13 Creatinine 0.7 GFR Calculation 89.7 L Glucose 103 Calculated Osmolal ity 288 Calcium 8.6 Total Bilirubin 0.2 AST 15 ALT 10 Alkaline Phosphata se 83 Troponin T Hi Sens 6Hr 6.00 Troponin T Hi Sens 6Hr Delta 0 Total Protein 6.8 Albumin 4.0 Globulin 2.8 TSH 0.66 Vitals: Last Vital Signs Temp 98.4 F 06/07/21 15:47 Pulse 87 06/07/21 15:47 Resp 18 06/07/21 15:47 BP 108/68 06/07/21 15:47 Pulse Ox 94 06/07/21 15:47 Discharge Plan Discharge Patient Disposition: Home Condition: Stable Prescriptions: New apixaban 5 mg tablet 5 mg PO BID Qty: 30 RF: 0 acetaminophen 325 mg Tablet 650 mg PO Q4H PRN (Reason: Mild Pain Or Increase Temp) Qty: 30 RF: 0 Continued albuterol sulfate [Ventolin HFA] 90 mcg/actuation HFA aerosol inhaler 2 puff inhalation Q6H PRN (Reason: shortness of breath or wheezing) Qty: 8.5 RF: 0 clonazepam 0.5 mg tablet 0.5 mg PO QAM RF: 0 lamotrigine 200 mg tablet 400 mg PO QAM RF: 0 oxcarbazepine 300 mg tablet 300 mg PO BID RF: 0 trazodone 100 mg tablet 200 mg PO BEDTIME RF: 0 gabapentin 300 mg capsule 1,200 mg PO BID RF: 0 topiramate 100 mg tablet 200 mg PO BEDTIME RF: 0 Changed omeprazole 40 mg Capsule,Delayed Release(Dr/Ec) 40 mg PO BID Qty: 60 RF: 0 Discharge Orders: Discharge Order (Routine); Ordered 06/07/21 Ordered By: Augie Hoffmann Other Ambulatory Orders: NM pul vent and perfus* [id number] (Routine) Timeframe: 3 Days Facility: [facility] - Location: Radiology Ordered By: Augie Hoffmann Referrals: Tarik Villasenor DO [Physician] - 4-7 days Discharge Diet: Advance as tolerated Discharge Activity: Increase activity as tolerated Patient Instructions: Apixaban (By mouth), GERD (Gastroesophageal Reflux Disease) (GEN), Cervical Radiculopathy (GEN), VQ Scan (Lung Ventilation and Perfusion) (GEN), Opioid Safety Activity Restrictions/Additional Instructions: Please go through an additional assessment by lung ventilation/perfusion scan (VQ scan), to additionally assess for possible pulmonary embolism, although large embolism is not expected based on echocardiogram findings. As we have been unable to adequately assess for small emboli and with patient swelling in 1 leg, as well as with family history of blood clots, you are for now started on blood thinner medication (Eliquis) as we discussed until this test is performed. Please follow-up with your primary doctor on the results, as well as on your condition. Apply icy hot, consider a clean pad, or cold applied to the neck on the left side to see if it relieves symptoms. Take Tylenol as needed not exceeding 3000 mg a day. Additionally due to reflux, please note your omeprazole dose has been increased to twice daily. Please discuss with your primary doctor, and in case of persistent symptoms discuss referral for assessment by upper endoscopy. Avoid eating and drinking 2 hours before sleep. Consider raising head of bed on blocks. Avoid foods that may worsen reflux including mint, chocolate, coffee, spicy foods, alcohol. Work with your primary doctor regarding stress relief options with regards to stress frustration at home. In case you notice worsening stress or symptoms of bipolar disorder, seek medical attention. Discharge Attestations Time Spent in Discharge Care*: greater than 30 min Quality Metrics Clinical Quality Measures During this hospital stay, did patient experience: None Coding Level of Care Code Acute Chg [facility] note Diagnoses Chest tightness R07.89
--- NOTE | 2021-06-07 17:33 | USCV_ITS ---
Re Weinberg Age: 46 Gender: F : 1975 Exam Date: 06/07/2021 11:18 Ordering Phys: Augie Hoffmann MD Technologist: KAMERON Exam Location: [facility] [place] Indication: Intermittent chest pain x 1 yr. Much worse yesterday. No hx cardiac intervention per patient. BP: 110 / 72 HR: 62 Rhythm: Sinus Technical Quality: MEASUREMENTS (Male / Female) Normal Values 2D ECHO LV Diastolic Diameter PLAX 4.4 cm 4.2 - 5.9 / 3.9 - 5.3 cm LV Systolic Diameter PLAX 2.6 cm IVS Diastolic Thickness 1.0 cm 0.6 - 1.0 / 0.6 - 0.9 cm IVS Systolic Thickness 1.6 cm LVPW Diastolic Thickness 0.9 cm 0.6 - 1.0 / 0.6 - 0.9 cm LVPW Systolic Thickness 1.3 cm LVOT Diameter 1.9 cm LV Ejection Fraction 2D Teich 68.9 % LV Ejection Fraction MOD 2C 66.8 % LV Ejection Fraction 2C AL 67.9 % LA Diameter 2.9 cm LA Width 3.1 cm LA Height 3.6 cm RA Width 3.5 cm RA Height 3.6 cm Aorta at Sinotubular Diameter 2.8 cm M-MODE Aortic Annulus Diameter 2.7 cm LA Ao Ratio MM 1.1 MV E Point Septal Separation 0.4 cm DOPPLER AV Peak Velocity 90.0 cm/s LVOT Peak Velocity 79.0 cm/s AV Area Cont Eq vti 3.0 cm squared AV Area Cont Eq pk 2.5 cm squared MV Area PHT 3.7 cm squared Mitral E to A Ratio 1.2 MV E' Velocity 42.5 cm/s Mitral E to MV E' Ratio 7.4 Mitral E to LV E' Lateral Ratio 7.6 Mitral E to LV E' Septal Ratio 7.3 TR Peak Velocity 186.8 cm/s TR Peak Gradient 14.0 mmHg TV Peak E Velocity 54.0 cm/s Right Atrial Pressure 5.0 mmHg Pulmonary Artery Systolic Pressu 19.0 mmHg PV Peak Velocity 68.0 cm/s RV Acceleration Time 0.2 s RV Ejection Time 0.4 s RV AcT/ET 0.5 FINDINGS Left Ventricle Normal left ventricular cavity size. Normal left ventricular systolic function. No regional wall motion abnormalities. Left ventricular ejection fraction is estimated at 60 %.Normal diastolic function. Right Ventricle The right ventricle is normal in size and function. Right Atrium The right atrium is normal in size. Left Atrium The left atrium is normal in size. Mitral Valve Structurally normal mitral valve without significant stenosis or prolapse. There is no mitral regurgitation. Aortic Valve Mild aortic valve calcification. No aortic valve stenosis. No aortic valve regurgitation. Tricuspid Valve Structurally normal tricuspid valve without significant stenosis or regurgitation. Pulmonary artery systolic pressure is normal. Pulmonic Valve Structurally normal pulmonic valve without significant stenosis. There is no pulmonic regurgitation. Pericardium Normal pericardium without effusion. Aorta Normal ascending aorta dimension. CONCLUSIONS 1-Normal left ventricular cavity size. Normal left ventricular systolic function. No regional wall motion abnormalities. Left ventricular ejection fraction is estimated at 60 %.Normal diastolic function. 2-No significant valve abnormalities. 3-There is no pericardial effusion. 4-Right atrial pressure is around 2-5 mm of mercury. 5-There are no prior echocardiogram studies to compare. Patsy Rogers MD (Electronically Signed) Final Date: 07 June 2021 12:51 S
--- NOTE | 2021-06-07 17:33 | NMCV_ITS ---
NM nancy perf SPECT r/s* [id number] Re Weinberg Age: 46 Gender: F : 1975 Exam Date: 06/07/2021 07:18 Ordering Phys: Augie Hoffmann MD Technologist: LONNY Jackson Exam Location: [facility] Indications: CHEST PAIN STRESS TEST Please see separate stress test report in [facility] for full findings IMAGE PROTOCOL Rest/Stress 1 Lexiscan Day Radiopharmaceutical Dose (mCi) Administration Site Administered by Rest: Tc-99m 10.8 IV LONNY Pichardo Sestamibi Stress:Tc-99m 32.6 IV LONNY Pichardo Sestamibi Rest: 07-Jun-2021 60 Discovery 630 Stress: 07-Jun-2021 30 Discovery 630 0.4mg Lexiscan. Images obtained in supine and prone position. SPECT RESULTS Technical Quality: Excellent Raw Data Analysis: Normal Image Corrections: No attenuation or motion correction applied Summed Stress Score: 0 Summed Rest Score: 0 Summed Difference Score: 0 PERFUSION FINDINGS Medium-sized area of decreased tracer uptake noted at the rest in mid anterior wall showed improvement on prone images suggestive of artifact. FUNCTIONAL RESULTS (calculated via Gated SPECT) Stress Image LV EF (%): 78 Stress EDV (mL):63 TID: 0.94 Stress ESV (mL):14 Rest Image LV EF (%): 78 FUNCTIONAL FINDINGS: There is normal left ventricular systolic function. IMPRESSIONS Myocardial perfusion imaging is normal. EKG segment will be documented separately. Patsy Rogers MD (Electronically Signed) Final Date: 07 June 2021 12:31 S
== END 2021-06-07 18:45 | disposition home or self-care (01) ==
LOC: ER 16:20 → MEDSURG 17:38
PROVIDERS: Nurse Practitioner Family; Admitting Provider Internal Medicine; Emergency Provider Emergency Medicine; Visit Provider Internal Medicine
DX: R07.89 Other chest pain (principal); F31.9 Bipolar disorder, unspecified; Z87.891 Personal history of nicotine dependence
CPT/HCPCS: 36415; 71045; 71275; 78452; 80053; 84443; 84484; 85025; 85610; 93005; 93017; 93306; 96374; 99291; A9500; G0378; J2405; J2785; J7030; Q0162; Q9967

== ENCOUNTER 2021-06-13 11:04 | Outpatient (CLI) | payer OTHER, SELFPAY ==
--- NOTE | 2021-06-13 11:30 | MM_ITS ---
WS: [id number] BILATERAL DIGITAL SCREENING MAMMOGRAPHY WITH CAD CLINICAL INFORMATION: Breast cancer screening HISTORY: Screening mammogram. Bilateral breast soreness COMPARISON: None. TECHNIQUE: Bilateral CC and MLO views. FINDINGS: Scattered fibroglandular densities bilaterally. A few incidental punctate calcifications. No suspicio us focal mass, asymmetry, calcifications, or architectural distortion. No evidence of malignancy. MM/[place] [id number] IMPRESSION: BI-RADS: 2-Benign FOLLOW UP: 1 Year Follow-up Recommend return to annual screening mammography.
== END 2021-06-13 11:05 | disposition home or self-care (01) ==
LOC: RADSHAW 11:14
PROVIDERS: PCP Family Medicine; Visit Provider Family Medicine
DX: Z12.31 Encounter for screening mammogram for malignant neoplasm of breast (principal)
CPT/HCPCS: 77067

== ENCOUNTER → 2021-06-20 15:35 | Outpatient (BNVA) | payer OTHER, SELFPAY | PROVIDERS: PCP Family Medicine; Visit Provider Family Medicine | DX: Z20.822 Contact with and (suspected) exposure to COVID-19 (principal); Z20.828 Contact with and (suspected) exposure to other viral communicable diseases | CPT/HCPCS: 87426; 87635 ==

== ENCOUNTER 2021-10-12 12:01 | Emergency (ER) | payer OTHER, SELFPAY ==
[2021-10-12 12:57] VITALS: BP 129/78; PULSE 99; RESP 21; TEMP 37.2; O2SAT 97; BMI 24.6
[2021-10-12 13:03] VITALS: BP 112/75; PULSE 73; RESP 15; O2SAT 94
[2021-10-12 14:10] LABS: Basophils % 0.8 %; Eosinophils # 0.1 10^3/uL (0.0-0.8); Eosinophils % 1.9 %; Hematocrit 38.4 % (37.0-47.0); Hemoglobin 12.8 g/dL (11.5-15.3); Lymphocytes # 2.7 10^3/uL (0.8-4.8); Lymphocytes % 51.6 %; Mean Corpuscular HGB Conc 33.3 g/dL (30.0-36.0); Mean Corpuscular Hemoglobin 29.1 pg (28.0-34.0); Mean Corpuscular Volume 87.3 fl (81-99); Mean Platelet Volume 10.3 fL (7.4-10.4); Monocytes # 0.4 10^3/uL (0.2-0.9); Neutrophils # 1.96 10^3/uL (1.8-7.7); Neutrophils % 37.5 %; Nucleated Red Blood Cells % 0 %; Platelet Count 220 10^3/cmm (130-400); Red Cell Distribution Width 12.7 % (12.1-15.1); White Blood Count 5.2 10^3/uL (4.0-10.0)
--- NOTE | 2021-10-12 14:30 | PC.NURSE ---
facilities management executive placed on patient.
[2021-10-12 14:34] LABS: HCG, Serum Qual Negative (Negative)
--- NOTE | 2021-10-12 14:34 | W.ED.ABDPA2 ---
HPI - Abdominal Pain General: Chief Complaint: Abdominal Pain Stated Complaint: Abd pains V/N/D Time Seen by Provider: 10/12/21 13:58 Source: patient Mode of arrival: ambulatory Limitations: no limitations History of Present Illness: 46-year-old female presents emergency room with complaints of epigastric left upper quadrant abdominal pain for last 2 days. She is previously had pancreatitis as this feels the same in nature. She is recovering alcoholic has not drank for 8 or 9 years she did have a previous episode that was unrelated to alcohol use we never did find a precipitating cause. She has had sections and and a hysterectomy but no other abdominal surgeries. She denies any hematochezia melena hematemesis or coffee-ground emesis. MD elicited complaint: abdominal pain Pertinent past history: none Pain Consistency: constant Location: None Severity: severe Quality: cramping Radiation: none Migration to: no migration Exacerbating factors: nothing Relieving factors: nothing Associated Symptoms: Reports bloating, change in bowel habits, change in stool character, GI cramping, diarrhea, dyspepsia, nausea and vomiting; Denies anorexia, belching, chills, coffee ground emesis, constipation, dysuria, excessive flatus, fever(s), heartburn, hematochezia, hematuria, hematemesis, fecal incontinence, loose stools, melena, poor appetite and syncope Review of Systems Const: Reports: change in appetite; Denies: fever(s), chills or body aches ENMT: Denies: throat pain, ear or mastoid pain, nasal discharge or nasal congestion Card: Denies: chest pain, palpitations, irregular heart rhythm, edema or syncope Resp: Denies: dyspnea, productive cough or non-productive cough GI: Reports: abdominal pain, nausea, vomiting, diarrhea, bloating, GI cramping, change in bowel habits and change in stool character; Denies: hematemesis, coffee ground emesis, heartburn, constipation, belching, excessive flatus, fecal incontinence, hematochezia or melena : Denies: flank pain, difficulty voiding, dysuria, urinary frequency, urinary urgency or hematuria Skin/Breast: Denies: rash or pruritus PFSH ED PFSH: Medical History Bipolar disorder Migraines Osteonecrosis of hip Pharyngitis URI (upper respiratory infection) Surgical History H/O shoulder surgery History of hip replacement, total History of surgery of head Hx of breast biopsy Family History Other Diabetes Hypertension Social History Smoking and tobacco status: never smoked Alcohol intake: never Household members: children Marital status: Current occupational status: employed Physical Exam Const: GENERAL APPEARANCE: cooperative and comfortable ORIENTATION/CONSCIOUSNESS: Yes awake, Yes oriented to person, Yes oriented to place and Yes oriented to time HENMT: COMMON NORMALS: normocephalic, atraumatic and hearing grossly normal bilaterally HEAD & SCALP: normocephalic and atraumatic Neck/C-Spine: COMMON NORMALS: no JVD Resp: COMMON NORMALS: normal respiratory effort, No retractions, No use of accessory muscles and clear to auscultation bilaterally AUSCULTATION: clear to auscultation bilaterally Cardio: COMMON NORMALS: no JVD, regular rate, regular rhythm and No murmurs present (Cardio) RATE: regular rate RHYTHM: regular rhythm GI: COMMON NORMALS: No hepatosplenomegaly present AUSCULTATION: Yes normoactive bowel sounds PALPATION: Yes Tenderness to palpation present (GI), No Guarding due to palpation present (GI) and Yes No hepatosplenomegaly present Extremity: COMMON NORMALS: normal to inspection, capillary refill normal, no clubbing, cyanosis or edema, no calf tenderness and no pedal edema Neuro: SENSORIUM/ORIENTATION: Yes oriented to person, Yes oriented to place and Yes oriented to time Skin: COMMON NORMALS: no rashes or lesions noted GENERAL SKIN EXAM: no rashes or lesions noted Course Vital Signs: Vital signs: Vital Signs Temperature 98.9 F 10/12/21 12:57 Pulse Rate 75 10/12/21 15:30 Respiratory Rate 18 10/12/21 18:13 Blood Pressure 121/79 10/12/21 18:13 Pulse Oximetry 95 10/12/21 18:13 MDM - Abdominal Pain Medical Decision Making Labs and imaging reviewed no acute pancreatitis. There are some mild constipation. Can use mag citrate for adequate relief Medical Records I reviewed the patient's medical records. Lab Data I reviewed the patient's lab results. : 10/12/21 14:00 10/12/21 14:00 Labs/Radiology: Radiology Impressions Abdomen/Pelvis CT 10/12/21 14:56 IMPRESSION: 1. Negative for acute inflammatory process in the abdomen or pelvis. 2. Bibasilar atelectasis. 3. Splenic cyst. 4. Calcified biliary sludge. 5. Bilateral punctate nonobstructing renal calyceal stones. 6. Left kidney cyst, negative for follow up. 7. Constipation. Laboratory Results WBC 5.2 10^3/uL (4.0-10.0) 10/12/21 14:00 RBC 4.40 10^6/uL (4.1-5.3) 10/12/21 14:00 Hgb 12.8 g/dL (11.5-15.3) 10/12/21 14:00 Hct 38.4 % (37.0-47.0) 10/12/21 14:00 MCV 87.3 fl (81-99) 10/12/21 14:00 MCH 29.1 pg (28.0-34.0) 10/12/21 14:00 MCHC 33.3 g/dL (30.0-36.0) 10/12/21 14:00 RDW 12.7 % (12.1-15.1) 10/12/21 14:00 Plt Count 220 10^3/cmm (130-400) 10/12/21 14:00 MPV 10.3 fL (7.4-10.4) 10/12/21 14:00 Neut % (Auto) 37.5 % 10/12/21 14:00 Lymph % (Auto) 51.6 % 10/12/21 14:00 [place] % (Auto) 8.0 % 10/12/21 14:00 Eos % (Auto) 1.9 % 10/12/21 14:00 Baso % (Auto) 0.8 % 10/12/21 14:00 Neut # (Auto) 1.96 10^3/uL (1.8-7.7) 10/12/21 14:00 Lymph # (Auto) 2.7 10^3/uL (0.8-4.8) 10/12/21 14:00 [place] # (Auto) 0.4 10^3/uL (0.2-0.9) 10/12/21 14:00 Eos # (Auto) 0.1 10^3/uL (0.0-0.8) 10/12/21 14:00 Baso # (Auto) 0.0 10^3/uL (0.0-0.1) 10/12/21 14:00 Nucleated RBC % (auto) 0 % 10/12/21 14:00 Nucleated RBCs # 0.0 /100WBC 10/12/21 14:00 Sodium 132 mmol/L (136-145) L 10/12/21 14:00 Potassium 3.8 mmol/L (3.5-5.1) 10/12/21 14:00 Chloride 102 mmol/L (98-107) 10/12/21 14:00 Carbon Dioxide 19 mmol/L (22-29) L 10/12/21 14:00 Anion Gap 14.8 (5-19) 10/12/21 14:00 BUN 11 mg/dL (6-20) 10/12/21 14:00 Creatinine 0.7 mg/dL (0.5-0.9) 10/12/21 14:00 GFR Calculation 89.7 mL/min (90-130) L 10/12/21 14:00 Glucose 95 mg/dL (65-115) 10/12/21 14:00 Calculated Osmolality 273 mOsm/kg (285-295) L 10/12/21 14:00 Calcium 9.8 mg/dL (8.5-10.5) 10/12/21 14:00 Total Bilirubin 0.3 mg/dL (0.15-1.2) 10/12/21 14:00 AST 15 U/L (0-32) 10/12/21 14:00 ALT 14 U/L (0-33) 10/12/21 14:00 Alkaline Phosphatase 94 IU/L (35-105) 10/12/21 14:00 Total Protein 8.1 g/dL (6.6-8.7) 10/12/21 14:00 Albumin 4.7 g/dL (3.5-5.2) 10/12/21 14:00 Globulin 3.4 g/dL (1.3-4.6) 10/12/21 14:00 Lipase 36 U/L (13-60) 10/12/21 14:00 HCG, Qual Negative (Negative) 10/12/21 14:00 Urine Color Yellow (Yellow) 10/12/21 11:15 Urine Appearance Hazy (CLEAR) A 10/12/21 11:15 Urine pH 7 (5-7) 10/12/21 11:15 Ur Specific [place] 1.005 (1.005-1.030) 10/12/21 11:15 Urine Protein Neg (Negative) 10/12/21 11:15 Urine Glucose (UA) Norm (Normal) 10/12/21 11:15 Urine Ketones Negative (Negative) 10/12/21 11:15 Urine Blood Neg (Negative) 10/12/21 11:15 Urine Nitrate Negative (Negative) 10/12/21 11:15 Urine Bilirubin Neg (Negative) 10/12/21 11:15 Urine Urobilinogen Norm mg/dL (Negative) 10/12/21 11:15 Ur Leukocyte Esterase Trace (Negative) H 10/12/21 11:15 Discharge Plan Discharge Patient Disposition: Home Clinical Impression: Constipation Condition: Stable Prescriptions: New magnesium citrate Solution 150 ml PO BID PRN (Reason: constipation) Qty: 296 0RF No Action bacitracin 500 unit/gram ointment 1 applic ophthalmic (eye) Q12H Qty: 3.5 0RF gabapentin 300 mg capsule 1,200 mg PO BID Qty: 240 2RF omeprazole 40 mg capsule,delayed release(DR/EC) 40 mg PO BID Qty: 60 2RF trazodone 100 mg tablet 200 mg PO BEDTIME Qty: 180 1RF clonazepam 1 mg tablet 1 mg PO DAILY Qty: 30 1RF albuterol sulfate [Ventolin HFA] 90 mcg/actuation HFA aerosol inhaler 2 puff inhalation Q6H PRN (Reason: shortness of breath or wheezing) Qty: 8.5 0RF lamotrigine 200 mg tablet 400 mg PO QAM Qty: 180 1RF topiramate 100 mg tablet 200 mg PO BEDTIME Qty: 180 1RF oxcarbazepine 300 mg tablet 300 mg PO BID Qty: 180 1RF acetaminophen 325 mg Tablet 650 mg PO Q4H PRN (Reason: Mild Pain Or Increase Temp) Qty: 30 0RF Discharge Orders: Discharge ED (Routine); Ordered 10/12/21 Ordered By: Rafael Kim Referrals: Tarik Villasenor DO [Primary Care Provider] - Discharge Diet: Usual diet Discharge Activity: Resume usual activity Patient Instructions: Opioid Safety Coding Level of Care Code ED Interventional Radiology Tech for Chg Fwd Exam Comprehensive
[2021-10-12 14:35] LABS: Alanine Aminotransferase 14 U/L (0-33); Albumin Level 4.7 g/dL (3.5-5.2); Alkaline Phosphatase 94 IU/L (35-105); Anion Gap 14.8 (5-19); Aspartate Amino Transferase 15 U/L (0-32); Blood Urea Nitrogen 11 mg/dL (6-20); Calcium 9.8 mg/dL (8.5-10.5); Carbon Dioxide 19 mmol/L (22-29); Chloride 102 mmol/L (98-107); Globulin 3.4 g/dL (1.3-4.6); Glomerular Filtration Rate 89.7 mL/min (90-130); Glucose 95 mg/dL (65-115); Lipase 36 U/L (13-60); Osmolality Calculated 273 mOsm/kg (285-295); Potassium 3.8 mmol/L (3.5-5.1); Sodium 132 mmol/L (136-145); Total Bilirubin 0.3 mg/dL (0.15-1.2); Total Protein 8.1 g/dL (6.6-8.7)
[2021-10-12 14:44] VITALS: RESP 15
[2021-10-12] MEDS: lactated ringers 1,000 ML 999 ML IV ×2 (14:44→16:26)
[2021-10-12] MEDS: morphine 4 mg/mL SDV 1 mL IVP (14:44)
[2021-10-12] MEDS: ondansetron 2 mg/ML SDV 2 mL 4 MG IVP (14:44)
[2021-10-12] MEDS: diphenhydrAMINE 50 mg/mL SDV 1mL 25 MG IVP (14:49)
--- NOTE | 2021-10-12 14:56 | CTR_ITS ---
PROCEDURE INFORMATION: Exam: CT Abdomen And Pelvis Without Contrast Exam date and time: 10/12/2021 5:04 PM Age: 46 years old Clinical indication: Abdominal pain TECHNIQUE: Imaging protocol: Computed tomography of the abdomen and pelvis without contrast. Radiation optimization: All CT scans at this facility use at least one of these dose optimization techniques: automated exposure control; mA and/or kV adjustment per patient size (includes targeted exams where dose is matched to clinical indication); or iterative reconstruction. COMPARISON: CT angio chest [id number] 06/06/2021 6:11 PM RADIATION DOSE METRICS: Total DLP (mGy-cm): 1511.26 FINDINGS: Lungs: Bibasilar atelectasis. Liver: Normal. No mass. Gallbladder and bile ducts: Calcified biliary sludge. Pancreas: Normal. No ductal dilation. Spleen: Splenic cyst. Adrenal glands: Normal. No mass. Kidneys and ureters: Bilateral punctate nonobstructing renal calyceal stones. Left kidney cyst, negative for follow up. Stomach and bowel: Constipation. Appendix: No evidence of appendicitis. Intraperitoneal space: Unremarkable. No free air. No significant fluid collection. Vasculature: Unremarkable. No abdominal aortic aneurysm. Lymph nodes: Unremarkable. No enlarged lymph nodes. Urinary bladder: Unremarkable as visualized. Reproductive: Unremarkable as visualized. Bones/joints: Unremarkable. No acute fracture. Soft tissues: Unremarkable. CT/CT abdomen pelvis wo con [id number] IMPRESSION: 1. Negative for acute inflammatory process in the abdomen or pelvis. 2. Bibasilar atelectasis. 3. Splenic cyst. 4. Calcified biliary sludge. 5. Bilateral punctate nonobstructing renal calyceal stones. 6. Left kidney cyst, negative for follow up. 7. Constipation.
[2021-10-12 15:30] VITALS: BP 114/85; PULSE 75; RESP 16; O2SAT 97
[2021-10-12 16:00] LABS: Add Urine Microscopic? NO; Charge for UA Resulting for Rev
[2021-10-12 16:26] LABS: Bilirubin Urine Neg (Negative); Blood Urine Neg (Negative); Glucose Urine UA Norm (Normal); Ketones Urine Negative (Negative); Leukocyte Esterase Urine Trace (Negative); Nitrate Urine Negative (Negative); Protein Urine Neg (Negative); Specific Gravity, Urine 1.005 (1.005-1.030); Urine Appearance Hazy (CLEAR); Urine Color Yellow (Yellow); Urobilinogen Urine Norm (Negative); pH Urine 7 (5-7)
[2021-10-12 16:38] VITALS: BP 128/84; O2SAT 99
--- NOTE | 2021-10-12 16:49 | PC.NURSE ---
Notified Dr. Kim of patient having pain. Patient resting with eyes closed.
[2021-10-12 18:13] VITALS: BP 121/79; RESP 18; O2SAT 95
== END 2021-10-12 18:15 | disposition home or self-care (01) ==
PROVIDERS: Physician Assistant; Emergency Provider Family Medicine; PCP Family Medicine
DX: K59.00 Constipation, unspecified (principal)
CPT/HCPCS: 74176; 80053; 81003; 83690; 84703; 85025; 96361; 96374; 96375; 99284; J1200; J2270; J2405

== ENCOUNTER 2021-10-24 14:14 | Emergency (ER) | payer OTHER, SELFPAY ==
[2021-10-24 14:19] VITALS: BP 119/82; PULSE 84; RESP 18; TEMP 36.8; O2SAT 97; BMI 24.3
[2021-10-24 14:27] VITALS: BP 118/81; PULSE 92; RESP 18; O2SAT 96
--- NOTE | 2021-10-24 14:47 | ED_ITS ---
HPI - Headache General: Chief Complaint: Headache Stated Complaint: migraine Time Seen by Provider: 10/24/21 14:35 Source: patient Mode of arrival: ambulatory Limitations: no limitations History of Present Illness: Patient is a 46-year-old female presents to ED today with a complaint of a migraine headache. Patient states she has a history of migraine headaches and states she treats with Gabapentin and Topamax. She states she has not had a migraine headache in many years but states her headache today is identical to previous migraines. She states it is located to her left retro-orbital and parietal area. She feels like pain is worse with light and sound. Patient is not having any nausea or vomiting. No visual changes. No injury or trauma. MD elicited complaint: headache Pertinent past history: migraines Onset (ago): day(s) Onset description: gradually Location: left, retro-orbital and parietal Severity: severe Pain scale (0-10): 9 Exacerbating factors: light and noise Relieving factors: dark room Associated symptoms: Deny chest pain, confusion, fever(s), malaise, nausea, rash or vomiting Treatments prior to arrival: migraine medication (gabapentin/topamax) Review of Systems Const: Denies: fever(s), chills, body aches, fatigue or malaise Card: Denies: chest pain Resp: Denies: dyspnea GI: Denies: abdominal pain, nausea or vomiting Musc: Denies: neck pain, back pain, extremity pain or joint pain Skin/Breast: Denies: rash Neuro: Reports: headache(s); Denies: numbness in extremities, weakness in extremities, sensory changes, difficulty walking, dizziness or confusion PFSH ED PFSH: Medical History Bipolar disorder Migraines Osteonecrosis of hip Pharyngitis URI (upper respiratory infection) Surgical History H/O shoulder surgery History of hip replacement, total History of surgery of head Hx of breast biopsy Family History Other Diabetes Hypertension Social History Smoking and tobacco status: never smoked Alcohol intake: never Household members: children Marital status: Current occupational status: employed Physical Exam Const: COMMON NORMALS: no acute distress, average body habitus, patient oriented x3, no limitations, alert and well nourished ORIENTATION/CONSCIOUSNESS: Yes awake, Yes oriented to person, Yes oriented to place and Yes oriented to time HENMT: COMMON NORMALS: normocephalic and atraumatic HEAD & SCALP: normal to inspection, normocephalic and atraumatic Eye: GENERAL EYE: appearance normal, both eyes and all related structures Neck/C-Spine: COMMON NORMALS: full ROM, no lymphadenopathy and no meningeal signs Resp: COMMON NORMALS: normal respiratory effort and clear to auscultation bilaterally AUSCULTATION: clear to auscultation bilaterally Cardio: COMMON NORMALS: regular rate and regular rhythm RATE: regular rate RHYTHM: regular rhythm Extremity: GENERAL: Yes normal exam except as noted Neuro: [place] COMA SCALE: document GCS findings [place] coma scale eye opening: Spontaneous [place] coma scale verbal response: Orientated [place] coma scale motor response: Obey commands [place] coma scale total score: 15 COMMON NORMALS: patient oriented x3, CN's II-XII intact bilaterally, moves all extremities, no focal motor deficits, no sensory deficits noted and gait normal SENSORIUM/ORIENTATION: Yes alert, Yes oriented to person, Yes oriented to place and Yes oriented to time MENINGEAL SIGNS: Yes no meningeal signs SPEECH: speech normal GAIT: Yes Normal gait present Skin: COMMON NORMALS: no rashes or lesions noted GENERAL SKIN EXAM: no rashes or lesions noted Course Reevaluation(s): Reevaluation #1: No change in RAMOS after IV fluids/medications. Does report nausea has improved. Time: 16:35 Vital Signs: Vital signs: Vital Signs Temperature 98.2 F 10/24/21 14:19 Pulse Rate 77 10/24/21 16:25 Respiratory Rate 18 10/24/21 16:25 Blood Pressure 113/66 10/24/21 16:25 Pulse Oximetry 97 10/24/21 16:25 MDM - Headache Medical Decision Making Patient given several different medications here all without much relief although at the end of her visit she states RAMOS was starting to improve slightly. We discussed other etiologies for her headaches and discussed CT imaging but she adamantly declines stating this is identical to previous migraines. Strict return to ED precautions given. Discharge Plan Discharge Patient Disposition: Home Clinical Impression: Migraine headache Qualifiers: Migraine type: without aura Status migrainosus presence: without status migrainosus Intractability: intractable Qualified Code(s): G43.019 - Migraine without aura, intractable, without status migrainosus Condition: Stable Prescriptions: No Action bacitracin 500 unit/gram ointment 1 applic ophthalmic (eye) Q12H Qty: 3.5 0RF gabapentin 300 mg capsule 1,200 mg PO BID Qty: 240 2RF omeprazole 40 mg capsule,delayed release(DR/EC) 40 mg PO BID Qty: 60 2RF trazodone 100 mg tablet 200 mg PO BEDTIME Qty: 180 1RF clonazepam 1 mg tablet 1 mg PO DAILY Qty: 30 1RF albuterol sulfate [Ventolin HFA] 90 mcg/actuation HFA aerosol inhaler 2 puff inhalation Q6H PRN (Reason: shortness of breath or wheezing) Qty: 8.5 0RF lamotrigine 200 mg tablet 400 mg PO QAM Qty: 180 1RF topiramate 100 mg tablet 200 mg PO BEDTIME Qty: 180 1RF oxcarbazepine 300 mg tablet 300 mg PO BID Qty: 180 1RF acetaminophen 325 mg Tablet 650 mg PO Q4H PRN (Reason: Mild Pain Or Increase Temp) Qty: 30 0RF magnesium citrate Solution 150 ml PO BID PRN (Reason: constipation) Qty: 296 0RF Discharge Orders: Discharge ED (Routine); Ordered 10/24/21 Ordered By: Jenny Harrell Referrals: Tarik Villasenor DO [Primary Care Provider] - Patient Instructions: Headache - Migraine (Adult), Migraine Headache (ED), Ocular Migraine (ED) Coding Level of Care Code ED Stretcher Leveler Operator Helper for Chg Fwd Exam Comprehensive
[2021-10-24] MEDS: sodium chloride 0.9% 1,000 ML 999 ML IV (15:48)
[2021-10-24] MEDS: diphenhydrAMINE 50 mg/mL SDV 1mL IVP (15:48)
[2021-10-24] MEDS: ondansetron 2 mg/ML SDV 2 mL 4 MG IVP ×2 (15:48→16:24)
[2021-10-24] MEDS: valproic acid inj 500 MG in sodium chloride 0.9% 50 ML 55 MG IV (16:11)
[2021-10-24 16:25] VITALS: BP 113/66; PULSE 77; RESP 18; O2SAT 97
[2021-10-24] MEDS: dexamethasone 10 mg/mL INJ 6 MG IVP (16:52)
[2021-10-24] MEDS: SUMAtriptan 6 mg/0.5 mL SDV SUBCUT (16:52)
== END 2021-10-24 17:37 | disposition home or self-care (01) ==
PROVIDERS: Emergency Provider Physician Assistant; PCP Family Medicine
DX: G43.019 Migraine without aura, intractable, without status migrainosus (principal)
CPT/HCPCS: 96365; 96372; 96375; 96376; 99284; J1100; J1200; J2405; J3030; J7030

== ENCOUNTER 2021-10-25 16:22 | Emergency (ER) | payer OTHER, SELFPAY ==
[2021-10-25 16:25] VITALS: BP 139/87; PULSE 99; RESP 18; TEMP 36.6; O2SAT 97; BMI 24.3
--- NOTE | 2021-10-25 16:38 | W.ED.HA ---
HPI - Headache General: Chief Complaint: Headache Stated Complaint: migraine Time Seen by Provider: 10/25/21 16:29 History of Present Illness: 46-year-old female with a history of migraine headaches presents to the emergency department today complaining that her migraine headache which she was seen for yesterday has returned. Patient reports the medications actually knocked out the headache after she left yesterday and did not return until 2 PM today. It did not occur during exertion and it was not a thunderclap headache. It is the same type of headache she had yesterday which is in the left orbital, facial, jaw region. She has light and sound sensitivity. She has been taking her gabapentin and Topamax for prevention of migraines. She took ibuprofen at home. Patient denies any fever, neck stiffness, trauma, rashes, wounds, change in her visual acuity, visual scotoma. Review of Systems Narrative: Pertinent Positives: Headache, nausea, light sensitivity, sound sensitivity Pertinent Negatives: No fever, chills, neck stiffness, trauma, rashes, scotomas, focal neurologic complaints, confusion 12 Point ROS performed and otherwise negative unless stated here or HPI. PFSH ED PFSH: Medical History Bipolar disorder Migraines Osteonecrosis of hip Pharyngitis URI (upper respiratory infection) Surgical History H/O shoulder surgery History of hip replacement, total History of surgery of head Hx of breast biopsy Family History Other Diabetes Hypertension Social History Smoking and tobacco status: never smoked Alcohol intake: never Household members: children Marital status: Current occupational status: employed Physical Exam Narrative: EXAM NARRATIVE: I have reviewed the triage vital signs. Const: Well-nourished, Well-developed, appearing stated age, wearing sunglasses, laying right lateral decubitus, sobbing Eyes: EOMI, no conjunctival injection, and symmetrical lids. No periorbital edema. ENMT: Atraumatic head and facial exam, external nose and ears normal. The muslim does not reveal any palpable cord and is nontender. Neck: Symmetric, trachea midline, no swelling, no JVD, ROM wnl. No meningeal signs CVS: Tachycardic rate, radial pulse 2+, no peripheral edema RESP: Unlabored respirations, symmetric expansion, Clear to auscultation bilaterally GI: Nontender/Nondistended, soft, no masses. MSK: Normocephalic/Atraumatic, extremities w/o deformity, no cyanosis or clubbing, no edema Skin: Warm, Dry, No rashes or lesions noted. Neuro: Sensation grossly intact, GOINS, no focal neurologic deficits Psych: awake, alert, oriented, patient is crying and her voice is quavering Course Vital Signs: Vital signs: Vital Signs Temperature 97.8 F 10/25/21 16:25 Pulse Rate 99 10/25/21 16:25 Respiratory Rate 17 10/25/21 17:01 Blood Pressure 139/87 10/25/21 16:25 Pulse Oximetry 97 10/25/21 16:25 MDM - Headache Medical Decision Making Patient presenting with what is likely a migraine headache. Low suspicion for subarachnoid hemorrhage, meningitis, dural venous sinus thrombosis, optic neuritis, intracranial mass, CVA, aneurysmal pain, trigeminal neuralgia. Patient was offered a CT scan yesterday but states that this headache as well as 1 yesterday is exactly the same as her migraines had been many times before. She would prefer to try treatment of the migraine. She does not have any focal neurologic deficits. Her pupils are equal round reactive to light. UPDATE: 1724--patient is now relaxed and comfortable; she states her headache is better after the medications. Discharge Plan Discharge Patient Disposition: Home Clinical Impression: Migraine Condition: Stable Prescriptions: No Action bacitracin 500 unit/gram ointment 1 applic ophthalmic (eye) Q12H Qty: 3.5 0RF gabapentin 300 mg capsule 1,200 mg PO BID Qty: 240 2RF omeprazole 40 mg capsule,delayed release(DR/EC) 40 mg PO BID Qty: 60 2RF trazodone 100 mg tablet 200 mg PO BEDTIME Qty: 180 1RF clonazepam 1 mg tablet 1 mg PO DAILY Qty: 30 1RF albuterol sulfate [Ventolin HFA] 90 mcg/actuation HFA aerosol inhaler 2 puff inhalation Q6H PRN (Reason: shortness of breath or wheezing) Qty: 8.5 0RF lamotrigine 200 mg tablet 400 mg PO QAM Qty: 180 1RF topiramate 100 mg tablet 200 mg PO BEDTIME Qty: 180 1RF oxcarbazepine 300 mg tablet 300 mg PO BID Qty: 180 1RF acetaminophen 325 mg Tablet 650 mg PO Q4H PRN (Reason: Mild Pain Or Increase Temp) Qty: 30 0RF magnesium citrate Solution 150 ml PO BID PRN (Reason: constipation) Qty: 296 0RF Discharge Orders: Discharge ED (Routine); Ordered 10/25/21 Ordered By: Davonte Cronin Referrals: Tarik Villasenor DO [Primary Care Provider] - 1 week Discharge Diet: Advance as tolerated Discharge Activity: Increase activity as tolerated Patient Instructions: Headache - Migraine (Adult), Acute Headache (ED), Opioid Safety Coding Level of Care Code ED Manager Sales And Marketing for Flor Alejandro
[2021-10-25 17:01] VITALS: RESP 17
[2021-10-25] MEDS: diphenhydrAMINE 50 mg/mL SDV 1mL IVP (17:01)
[2021-10-25] MEDS: morphine 4 mg/mL SDV 1 mL IVP (17:01)
[2021-10-25] MEDS: dexamethasone 10 mg/mL INJ IVP (17:01)
[2021-10-25] MEDS: acetaminophen 1,000 MG/100 ML PIGGYBACK 400 MG IV (17:05)
[2021-10-25] MEDS: prochlorperazine 10 mg/2 mL Inj IVP (17:16)
== END 2021-10-25 17:53 | disposition home or self-care (01) ==
PROVIDERS: Emergency Provider Emergency Medicine; PCP Family Medicine
DX: G43.909 Migraine, unspecified, not intractable, without status migrainosus (principal)
CPT/HCPCS: 96374; 96375; 99284; J0780; J1100; J1200; J2270

== ENCOUNTER → 2022-02-28 15:11 | Outpatient (BNVA) | payer OTHER, SELFPAY | PROVIDERS: PCP Family Medicine; Visit Provider Family Medicine Adult Medicine | DX: M54.9 Dorsalgia, unspecified (principal) | CPT/HCPCS: 81000 ==

== ENCOUNTER 2022-03-22 10:42 | Emergency (ER) | payer OTHER, BC, SELFPAY ==
[2022-03-22 10:47] VITALS: BP 133/84; PULSE 92; RESP 17; TEMP 36.9; O2SAT 99; BMI 24.3
--- NOTE | 2022-03-22 11:55 | ECG_ITS ---
[facility] Test Date: 2022-03-22 Pat Name: Re Weinberg Department: Room: Gender: Female Interlacer: : 1975 Requested By: Boni Lopez Order Number: [id number] Reading MD: Flor Salas M.D. Measurements Intervals [place] Rate: 79 P: 58 RI: 172 QRS: 54 QRSD: 83 T: 53 QT: 346 QTc: 397 Interpretive Statements SINUS RHYTHM POSSIBLE LEFT ATRIAL ENLARGEMENT [-0.1mV P-WAVE IN V1/V2] NONSPECIFIC T-WAVE ABNORMALITY Compared to ECG 06/06/2021 17:31:50 No significant changes Electronically Signed On 03-22-2022 22:29:33 CDT by Flor Salas M.D. [email or web address]
--- NOTE | 2022-03-22 11:55 | XRR_ITS ---
PROCEDURE INFORMATION: Exam: XR Chest Exam date and time: 03/22/2022 12:12 PM Age: 46 years old Clinical indication: Cough and shortness of breath; Prior surgery; Surgery type: RT shoulder; Patient HX: Patient with complaints of dyspnea on exertion for the past 4 days. Patient states she has chest burning bilaterally. She states she has occasional cough productive yellow sputum only in the mornings. She states she has history of chronic bronchitis. She does vape. She states she was diagnosed with covid 3 times with the last episode about 9 months ago. TECHNIQUE: Imaging protocol: Radiologic exam of the chest. Views: 2 views. COMPARISON: CR XR chest 1V portable [id number] 06/06/2021 11:42 AM FINDINGS: Lungs: Unremarkable. No consolidation. Pleural spaces: Unremarkable. No pleural effusion. No pneumothorax. Heart/Mediastinum: Unremarkable. No cardiomegaly. Bones/joints: There is a total right shoulder prosthesis. No acute bony abnormality. Soft tissues: Unremarkable XR/XR chest 2V* [id number] IMPRESSION: No acute abnormality.
--- NOTE | 2022-03-22 11:58 | ED_ITS ---
HPI - SOB/Dyspnea General: Chief Complaint: Shortness of Breath/Dyspnea Stated Complaint: SOB Time Seen by Provider: 03/22/22 11:46 Source: patient Mode of arrival: ambulatory Limitations: no limitations History of Present Illness: HPI Narrative: See nursing assessment. Patient with complaints of dyspnea on exertion for the past 4 days. Patient states she has chest burning bilaterally. She states she has occasional cough productive yellow sputum only in the mornings. Otherwise, cough is nonproductive. Patient states she was diagnosed with mild pancreatitis at an urgent care clinic on Sunday. She states the symptoms started prior to onset of shortness of breath. She denies any fever. She denies any chills. She states she has history of chronic bronchitis. She does vape. She states she was diagnosed with COVID 3 times with the last episode about 9 months ago. She states she does have an albuterol inhaler at home. Associated symptoms: Deny abdominal pain, fever(s), nausea, palpitations or vomiting Review of Systems Const: Denies: fever(s) or chills Eyes: Denies: change in vision ENMT: Denies: throat pain Card: Reports: other (Burning sensation on both sides of the chest.); Denies: palpitations Resp: Reports: dyspnea, productive cough and wheezing GI: Denies: abdominal pain, nausea or vomiting : Denies: flank pain Musc: Denies: neck pain or back pain Skin/Breast: Denies: rash or pruritus Neuro: Denies: headache(s) or numbness in extremities Psych: Denies: anxiety Isaias/Lymph: Denies: enlarged lymph nodes PFSH ED PFSH: Medical History Bipolar disorder Migraines Osteonecrosis of hip Pharyngitis URI (upper respiratory infection) Surgical History H/O shoulder surgery History of hip replacement, total History of surgery of head Hx of breast biopsy Family History Other Diabetes Hypertension Social History Smoking and tobacco status: former smoker Alcohol intake: never Household members: children Marital status: Current occupational status: employed Supplemental [facility] Information: Patient does vape. Physical Exam Const: COMMON NORMALS: no acute distress, patient oriented x3, alert and well nourished GENERAL APPEARANCE: cooperative HENMT: COMMON NORMALS: normocephalic and atraumatic HEAD & SCALP: normocephalic and atraumatic Eye: COMMON NORMALS: EOMs intact bilaterally Neck/C-Spine: COMMON NORMALS: full ROM, no lymphadenopathy, supple and no JVD Lymph: LYMPHATIC: no lymphadenopathy noted Chest: COMMONS NORMALS: normal inspection of the chest and normal palpation of entire chest wall Resp: COMMON NORMALS: normal respiratory effort, No retractions, No use of accessory muscles and clear to auscultation bilaterally AUSCULTATION: clear to auscultation bilaterally Cardio: COMMON NORMALS: no JVD, regular rate, regular rhythm and Peripheral pulses 2+ throughout RATE: regular rate RHYTHM: regular rhythm PERIPHERAL PULSES: Peripheral pulses 2+ throughout GI: COMMON NORMALS: Normal to inspection, nondistended, normoactive bowel sounds present, Soft to palpation and non-tender PALPATION: Yes Soft to palpation : COMMON NORMALS: Yes no CVA tenderness BLADDER/KIDNEY EXAM: Yes no CVA tenderness Back/Pelvis: COMMON NORMALS: no CVA tenderness Extremity: COMMON NORMALS: normal to inspection and full ROM Neuro: COMMON NORMALS: patient oriented x3, CN's II-XII intact bilaterally, moves all extremities, no focal motor deficits and no sensory deficits noted SENSORIUM/ORIENTATION: Yes alert Psych: COMMON NORMALS: mental status grossly normal, Normal thought process present, cooperative, normal affect and speech normal SPEECH: Yes normal speech THOUGHT PROCESS: Normal thought process present Skin: COMMON NORMALS: no rashes or lesions noted GENERAL SKIN EXAM: no rashes or lesions noted Course Vital Signs: Vital signs: Vital Signs Temperature 98.4 F 03/22/22 10:47 Pulse Rate 83 03/22/22 12:21 Respiratory Rate 17 03/22/22 10:47 Blood Pressure 113/73 03/22/22 12:21 Pulse Oximetry 98 03/22/22 12:21 Oxygen Delivery Me thod 03/22/22 10:47 MDM - SOB/Dyspnea Medical Decision Making copd vs bronchitis Lab Data : 03/22/22 12:11 03/22/22 12:11 Labs/Radiology: Radiology Impressions Chest X-Ray 03/22/22 11:55 IMPRESSION: No acute abnormality. Laboratory Results WBC 6.2 10^3/uL (4.0-10.0) 03/22/22 12:11 RBC 4.06 10^6/uL (4.1-5.3) L 03/22/22 12:11 Hgb 12.0 g/dL (11.5-15.3) 03/22/22 12:11 Hct 36.2 % (37.0-47.0) L 03/22/22 12:11 MCV 89.2 fl (81-99) 03/22/22 12:11 MCH 29.6 pg (28.0-34.0) 03/22/22 12:11 MCHC 33.1 g/dL (30.0-36.0) 03/22/22 12:11 RDW 12.4 % (12.1-15.1) 03/22/22 12:11 Plt Count 193 10^3/cmm (130-400) 03/22/22 12:11 MPV 10.2 fL (7.4-10.4) 03/22/22 12:11 Neut % (Auto) 57.5 % 03/22/22 12:11 Lymph % (Auto) 33.3 % 03/22/22 12:11 [place]ven % (Auto) 7.3 % 03/22/22 12:11 Eos % (Auto) 1.3 % 03/22/22 12:11 Baso % (Auto) 0.3 % 03/22/22 12:11 Neut # (Auto) 3.53 10^3/uL (1.8-7.7) 03/22/22 12:11 Lymph # (Auto) 2.1 10^3/uL (0.8-4.8) 03/22/22 12:11 Craven # (Auto) 0.5 10^3/uL (0.2-0.9) 03/22/22 12:11 Eos # (Auto) 0.1 10^3/uL (0.0-0.8) 03/22/22 12:11 Baso # (Auto) 0.0 10^3/uL (0.0-0.1) 03/22/22 12:11 Nucleated RBC % (auto) 0 % 03/22/22 12:11 Nucleated RBCs # 0.0 /100WBC 03/22/22 12:11 Sodium 136 mmol/L (136-145) 03/22/22 12:11 Potassium 3.8 mmol/L (3.5-5.1) 03/22/22 12:11 Chloride 104 mmol/L (98-107) 03/22/22 12:11 Carbon Dioxide 21 mmol/L (22-29) L 03/22/22 12:11 Anion Gap 14.8 (5-19) 03/22/22 12:11 BUN 11 mg/dL (6-20) 03/22/22 12:11 Creatinine 0.7 mg/dL (0.5-0.9) 03/22/22 12:11 GFR Calculation 89.7 mL/min (90-130) L 03/22/22 12:11 Glucose 101 mg/dL (65-115) 03/22/22 12:11 Calculated Osmolality 282 mOsm/kg (285-295) L 03/22/22 12:11 Calcium 9.7 mg/dL (8.5-10.5) 03/22/22 12:11 Troponin T Baseline 6 ng/L (0-10) 03/22/22 12:11 Imaging Data CXR: My impression: Chest x-ray shows nothing acute. No pneumothorax. No effusions, no infiltrate. Mild COPD EKG Data EKG 1: I personally reviewed and interpreted this EKG as follows: EKG Interpretation Date: 03/22/22 EKG interpretation time: 13:14 Interpretation: Normal sinus rhythm with heart rate of 79. Normal EKG. Normal GA interval, normal QT interval, normal P waves, normal T waves. Normal QRS. Normal ST segment. Normal axis. Discharge Plan Discharge Patient Disposition: Home Clinical Impression: Chronic allergic bronchitis, Chest tightness Condition: Stable Prescriptions: New prednisone 20 mg tablet See Rx Instructions .ROUTE .COMPLEX Qty: 7 0RF Rx Instructions: 40 mg orally daily x 2 days, then 20mg po daily x 3 days No Action trazodone 100 mg tablet 200 mg PO BEDTIME Qty: 180 1RF albuterol sulfate [Ventolin HFA] 90 mcg/actuation HFA aerosol inhaler 2 puff inhalation Q6H PRN (Reason: shortness of breath or wheezing) Qty: 8.5 0RF oxcarbazepine 300 mg tablet 300 mg PO BID Qty: 180 1RF gabapentin 300 mg capsule 1,200 mg PO BID Qty: 240 2RF lamotrigine 200 mg tablet 400 mg PO QAM Qty: 180 1RF clonazepam 1 mg tablet 1 mg PO DAILY Qty: 30 1RF acetaminophen 325 mg Tablet 650 mg PO Q4H PRN (Reason: Mild Pain Or Increase Temp) Qty: 30 0RF omeprazole 40 mg capsule,delayed release(DR/EC) 40 mg PO BID topiramate 100 mg tablet 200 mg PO BEDTIME Advil 200 mg Tablet 600 mg PO Q6H PRN (Reason: Pain) Discharge Orders: Discharge ED (Routine); Ordered 03/22/22 Ordered By: Boni Das Referrals: Tarik Villasenor DO [Primary Care Provider] - 1-3 days (as needed.) Discharge Diet: Advance as tolerated Discharge Activity: Increase activity as tolerated Patient Instructions: Chronic Bronchitis (ED) Activity Restrictions/Additional Instructions: Continue albuterol inhaler as needed. Avoid vaping. Vaping is likely causing many of your symptoms. Take prednisone for few days as directed. Take medication with food. Return if symptoms worsen. Coding Level of Care Code ED Coffee Machine Technician for Flor Fwd Exam Comprehensive
[2022-03-22 12:20] LABS: Basophils % 0.3 %; Eosinophils # 0.1 10^3/uL (0.0-0.8); Eosinophils % 1.3 %; Hematocrit 36.2 % (37.0-47.0); Lymphocytes # 2.1 10^3/uL (0.8-4.8); Lymphocytes % 33.3 %; Mean Corpuscular HGB Conc 33.1 g/dL (30.0-36.0); Mean Corpuscular Hemoglobin 29.6 pg (28.0-34.0); Mean Corpuscular Volume 89.2 fl (81-99); Mean Platelet Volume 10.2 fL (7.4-10.4); Monocytes # 0.5 10^3/uL (0.2-0.9); Monocytes % 7.3 %; Neutrophils # 3.53 10^3/uL (1.8-7.7); Neutrophils % 57.5 %; Nucleated Red Blood Cells % 0 %; Platelet Count 193 10^3/cmm (130-400); Red Blood Count 4.06 10^6/uL (4.1-5.3); Red Cell Distribution Width 12.4 % (12.1-15.1); White Blood Count 6.2 10^3/uL (4.0-10.0)
[2022-03-22 12:21] VITALS: BP 113/73; PULSE 83; O2SAT 98
[2022-03-22 12:42] LABS: Troponin(5th) Baseline 6 ng/L (0-10)
[2022-03-22 12:43] LABS: Anion Gap 14.8 (5-19); Blood Urea Nitrogen 11 mg/dL (6-20); Calcium 9.7 mg/dL (8.5-10.5); Carbon Dioxide 21 mmol/L (22-29); Chloride 104 mmol/L (98-107); Glomerular Filtration Rate 89.7 mL/min (90-130); Glucose 101 mg/dL (65-115); Osmolality Calculated 282 mOsm/kg (285-295); Potassium 3.8 mmol/L (3.5-5.1); Sodium 136 mmol/L (136-145)
[2022-03-22 13:00] VITALS: BP 116/78; PULSE 88; RESP 18; O2SAT 98
[2022-03-22 13:29] VITALS: BP 116/78; PULSE 80; RESP 18; O2SAT 93
== END 2022-03-22 13:31 | disposition home or self-care (01) ==
PROVIDERS: Emergency Provider Family Medicine; PCP Family Medicine
DX: J45.909 Unspecified asthma, uncomplicated (principal); Z87.891 Personal history of nicotine dependence
CPT/HCPCS: 71046; 80048; 84484; 85025; 93005; 99285

== ENCOUNTER 2022-05-25 06:57 | Emergency (ER) | payer OTHER, BC, MEDICAID, SELFPAY ==
[2022-05-25 07:00] VITALS: BP 115/74; PULSE 94; RESP 16; TEMP 36.9; O2SAT 96; BMI 24.3
--- NOTE | 2022-05-25 07:04 | W.ED.ABDPA2 ---
HPI - Abdominal Pain General: Chief Complaint: Abdominal Pain Stated Complaint: abd pain Time Seen by Provider: 05/25/22 07:03 Source: patient Mode of arrival: ambulatory History of Present Illness: 47-year-old female with a history of recurrent pancreatitis presents complaining of left upper quadrant pain for the last 4 days. She reports she has pancreatitis she states his pain radiating to her back. Fever yesterday up to 118 took ibuprofen pain medications yesterday did break her fever but her pain is still quite bothersome. His nausea is triggered by eating nearly anything. She does not drink any alcohol. She has had this several times in the past. MD elicited complaint: abdominal pain Pertinent past history: other (pancreatitis) Onset (ago): minute(s) Pain Consistency: constant Location: LUQ Severity: moderate Quality: sharp Radiation: none Exacerbating factors: eating Relieving factors: nothing Associated Symptoms: Reports nausea and poor appetite; Denies bloating, chills, coffee ground emesis, constipation, GI cramping, diarrhea, dyspepsia, dysuria, excessive flatus, fever(s), heartburn, hematochezia, hematuria, hematemesis, fecal incontinence, loose stools, melena, syncope and vomiting Review of Systems Const: Denies: fever(s), chills, body aches, change in appetite, fatigue or malaise ENMT: Denies: throat pain, ear or mastoid pain, nasal discharge or nasal congestion Card: Denies: chest pain, edema, syncope, dyspnea on exertion or orthopnea Resp: Denies: dyspnea, productive cough or non-productive cough GI: Reports: abdominal pain and nausea; Denies: vomiting, hematemesis, coffee ground emesis, heartburn, diarrhea, constipation, bloating, GI cramping, excessive flatus, fecal incontinence, hematochezia or melena : Denies: flank pain, difficulty voiding, dysuria, urinary frequency, urinary urgency or hematuria Skin/Breast: Denies: rash or pruritus PFSH ED PFSH: Medical History Bipolar disorder Migraines Osteonecrosis of hip Pharyngitis Psychiatric care URI (upper respiratory infection) Surgical History H/O shoulder surgery History of hip replacement, total History of surgery of head Hx of breast biopsy Family History Other Diabetes Hypertension Social History Smoking and tobacco status: former smoker Alcohol intake: never Household members: children Marital status: Current occupational status: employed Supplemental [employer] Information: Patient does vape. Physical Exam Const: GENERAL APPEARANCE: cooperative and comfortable ORIENTATION/CONSCIOUSNESS: Yes awake, Yes oriented to person, Yes oriented to place and Yes oriented to time HENMT: COMMON NORMALS: normocephalic, atraumatic, hearing grossly normal bilaterally, external ears normal, EAC's normal, TM's normal bilaterally, Normal nasal mucous membranes and turbinates present, moist oral mucous membranes and oropharynx normal HEAD & SCALP: normocephalic and atraumatic NOSE: Normal nasal mucous membranes and turbinates present EXTERNAL EAR: Yes external ears normal EXTERNAL AUDITORY CANAL: EAC's normal TYMPANIC MEMBRANE: TM's normal bilaterally Eye: COMMON NORMALS: Equal, round and reactive pupils present, EOMs intact bilaterally, conjunctivae normal and no scleral icterus CONJUNCTIVA: Yes conjunctivae normal PUPIL: Yes Equal, round and reactive pupils present Neck/C-Spine: COMMON NORMALS: full ROM, no lymphadenopathy, supple and no JVD Lymph: LYMPHATIC: no lymphadenopathy noted and no lymphedema noted Resp: COMMON NORMALS: normal respiratory effort, No retractions, No use of accessory muscles and clear to auscultation bilaterally AUSCULTATION: clear to auscultation bilaterally Cardio: COMMON NORMALS: no JVD, regular rate, regular rhythm and No murmurs present (Cardio) RATE: regular rate RHYTHM: regular rhythm GI: COMMON NORMALS: Soft to palpation and No hepatosplenomegaly present AUSCULTATION: Yes normoactive bowel sounds PALPATION: Yes Soft to palpation, Yes Tenderness to palpation present (GI) Details: LUQ, No Guarding due to palpation present (GI) and Yes No hepatosplenomegaly present : COMMON NORMALS: Yes no CVA tenderness BLADDER/KIDNEY EXAM: Yes no CVA tenderness Back/Pelvis: COMMON NORMALS: no CVA tenderness Extremity: COMMON NORMALS: normal to inspection, capillary refill normal, no clubbing, cyanosis or edema, no calf tenderness and no pedal edema Neuro: SENSORIUM/ORIENTATION: Yes oriented to person, Yes oriented to place and Yes oriented to time Skin: COMMON NORMALS: no rashes or lesions noted GENERAL SKIN EXAM: no rashes or lesions noted Course Vital Signs: Vital signs: Vital Signs Temperature 98.5 F 05/25/22 07:00 Pulse Rate 82 05/25/22 10:11 Respiratory Rate 16 05/25/22 10:11 Blood Pressure 144/98 05/25/22 10:11 Pulse Oximetry 97 05/25/22 10:11 Oxygen Delivery Me thod 05/25/22 08:45 MDM - Abdominal Pain Medical Decision Making Labs and imaging reviewed CT unremarkable with exception of constipation. Lipase pancreas normal discussed with patient recommend outpatient laxative for relief of symptoms Medical Records I reviewed the patient's medical records. Lab Data I reviewed the patient's lab results. 05/25/22 08:29 05/25/22 08:29 Labs/Radiology: Radiology Impressions Chest X-Ray 05/25/22 07:10 IMPRESSION: 1. Negative chest. Abdomen/Pelvis CT 05/25/22 07:34 IMPRESSION: 1. No renal obstruction or hydronephrosis. No perinephric stranding. 2. Nonobstructing 3 mm calcification LEFT kidney. 3. Prior appendectomy. 4. Mild diffuse constipation. No evidence for acute diverticulitis or colitis. 5. No free fluid or adenopathy. 6. Stable low-attenuation mass in the spleen is probably a cyst. No change since 06/06/2021. 7. No evidence for pancreatitis. Laboratory Results WBC 4.3 10^3/uL (4.0-10.0) 05/25/22 08:29 RBC 4.05 10^6/uL (4.1-5.3) L 05/25/22 08:29 Hgb 12.0 g/dL (11.5-15.3) 05/25/22 08:29 Hct 37.3 % (37.0-47.0) 05/25/22 08:29 MCV 92.1 fl (81-99) 05/25/22 08:29 MCH 29.6 pg (28.0-34.0) 05/25/22 08:29 MCHC 32.2 g/dL (30.0-36.0) 05/25/22 08: RDW 12.6 % (12.1-15.1) 05/25/22 08: Plt Count 224 10^3/cmm (130-400) 05/25/22 08: MPV 10.1 fL (7.4-10.4) 05/25/22 08: Neut % (Auto) 39.6 % 05/25/22 08: Lymph % (Auto) 47.6 % 05/25/22 08: [place] % (Auto) 8.4 % 05/25/22 08: Eos % (Auto) 3.7 % 05/25/22 08: Baso % (Auto) 0.5 % 05/25/22 08: Neut # (Auto) 1.71 10^3/uL (1.8-7.7) L 05/25/22 08: Lymph # (Auto) 2.1 10^3/uL (0.8-4.8) 05/25/22 08: [place] # (Auto) 0.4 10^3/uL (0.2-0.9) 05/25/22 08: Eos # (Auto) 0.2 10^3/uL (0.0-0.8) 05/25/22 08: Baso # (Auto) 0.0 10^3/uL (0.0-0.1) 05/25/22 08: Nucleated RBC % (auto) 0 % 05/25/22 08: Nucleated RBCs # 0.0 /100WBC 05/25/22 08: Sodium 137 mmol/L (136-145) 05/25/22 08: Potassium 3.9 mmol/L (3.5-5.1) 05/25/22 08: Chloride 106 mmol/L (98-107) 05/25/22 08: Carbon Dioxide 20 mmol/L (22-29) L 05/25/22 08:29 Anion Gap 14.9 (5-19) 05/25/22 08:29 BUN 10 mg/dL (6-20) 05/25/22 08: Creatinine 0.9 mg/dL (0.5-0.9) 05/25/22 08: GFR Calculation 66.8 mL/min (90-130) L 05/25/22 08:29 Glucose 130 mg/dL (65-115) H 05/25/22 08:29 Calculated Osmolality 285 mOsm/kg (285-295) 05/25/22 08:29 Lactic Acid 2.0 mmol/L (0.5-2.2) 05/25/22 08:29 Calcium 9.3 mg/dL (8.5-10.5) 05/25/22 08:29 Total Bilirubin 0.2 mg/dL (0.15-1.2) 05/25/22 08:29 AST 14 U/L (0-32) 05/25/22 08:29 ALT 13 U/L (0-33) 05/25/22 08:29 Alkaline Phosphatase 84 U/L (35-105) 05/25/22 08:29 Total Protein 7.2 g/dL (6.6-8.7) 05/25/22 08:29 Albumin 4.3 g/dL (3.5-5.2) 05/25/22 08:29 Globulin 2.9 g/dL (1.3-4.6) 05/25/22 08:29 Lipase 44 U/L (13-60) 05/25/22 08:29 Urine Color Yellow (Yellow) 05/25/22 08:38 Urine Appearance Clear (CLEAR) 05/25/22 08:38 Urine pH 6.5 (5-7) 05/25/22 08:38 Ur Specific [place] 1.015 (1.005-1.030) 05/25/22 08:38 Urine Protein Neg (Negative) 05/25/22 08:38 Urine Glucose (UA) Norm (Normal) 05/25/22 08:38 Urine Ketones Negative (Negative) 05/25/22 08:38 Urine Blood Neg (Negative) 05/25/22 08:38 Urine Nitrate Negative (Negative) 05/25/22 08:38 Urine Bilirubin Neg (Negative) 05/25/22 08:38 Urine Urobilinogen Neg mg/dL (Negative) 05/25/22 08:38 Ur Leukocyte Esterase Negative (Negative) 05/25/22 08:38 Discharge Plan Discharge Patient Disposition: Home Clinical Impression: Constipation Condition: Stable Prescriptions: No Action trazodone 100 mg tablet 200 mg PO BEDTIME Qty: 180 1RF albuterol sulfate [Ventolin HFA] 90 mcg/actuation HFA aerosol inhaler 2 puff inhalation Q6H PRN (Reason: shortness of breath or wheezing) Qty: 8.5 0RF oxcarbazepine 300 mg tablet 300 mg PO BID Qty: 180 1RF lamotrigine 200 mg tablet 400 mg PO QAM Qty: 180 1RF omeprazole 40 mg capsule,delayed release(DR/EC) 40 mg PO DAILY topiramate 100 mg tablet 200 mg PO BEDTIME ibuprofen [Advil] 200 mg Tablet 800 mg PO Q6H PRN (Reason: Pain) hydrocodone-acetaminophen 5-325 mg tablet 1 tab PO Q4H PRN (Reason: Pain) ondansetron 8 mg tablet,disintegrating 8 mg PO Q8H PRN (Reason: Nausea And Vomiting) clonazepam 1 mg tablet 1 mg PO DAILY@0830 gabapentin 300 mg capsule 1,200 mg PO BID Discharge Orders: Discharge ED (Routine); Ordered 05/25/22 Ordered By: Rafael Kim Referrals: Tarik Villasenor DO [Primary Care Provider] - Discharge Diet: Clear Liquid Discharge Activity: Increase activity as tolerated Patient Instructions: Constipation (ED), Opioid Safety, Pain Management Activity Restrictions/Additional Instructions: You were seen today for abdominal pain your labs and imaging are normal. CT did not show any signs of inflammation around the pancreas and the lipase was normal he did have moderate amount of constipation which was likely the cause of the discomfort. Recommend use of [id number] laxatives such as milk of magnesia or magnesium citrate or fleets enemas or Dulcolax suppositories as needed to relieve constipation. 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
--- NOTE | 2022-05-25 07:10 | XR_ITS ---
WS: [id number] Exam: XR chest 1V portable [id number] Date/Time of Exam: 05/25/2022 7:17 AM Reason For Exam: dyspnea/cough Comparison 03/22/2022. The lungs are clear and fully inflated. Normal cardiomediastinal silhouette. Unremarkable bony elemen ts. Right side reverse shoulder prosthesis. XR/XR chest 1V portable [id number] IMPRESSION: 1. Negative chest.
--- NOTE | 2022-05-25 07:34 | CT_ITS ---
WS: [id number] CT ABDOMEN AND PELVIS NONCONTRAST HISTORY: Abdominal pain, LEFT lower quadrant pain to flank. Fever. TECHNIQUE: Imaging performed through the abdomen and pelvis. Coronal and sagittal reformats are submi tted. All CT scans at [facility] use at least one of these dose optimization techniques: auto mated exposure control; mA and/or kV adjustment per patient size (includes targeted exams where dose is matched to clinical indication); or iterative reconstruction. DLP: 525.56 mGy.cm COMPARISON: 10/12/2021, chest CT 06/06/2021 Lower thorax: Emphysema at the lung bases. Heart size is normal. Small hiatal hernia. Liver: Normal size liver. No mass or bile duct dilatation. Gallbladder: Normal gallbladder. Pancreas: Normal size and attenuation. Normal pancreatic duct. No pancreatitis or mass. Spleen: Normal size spleen. Stable 2.8 x 2.5 cm low-attenuation mass within the spleen. Probably repr esenting cysts. No increase in size since 06/06/2021. Adrenal glands: Calcification in the RIGHT adrenal gland. No adrenal mass. Right kidney: Normal size kidney with no mass or hydronephrosis. Left kidney: No hydronephrosis. Nonobstructing 3 mm calcification lower pole. No ureteral stone ident ified. Very distal ureter is obscured by artifact from the RIGHT hip arthroplasty. Aorta: Mild atherosclerosis abdominal aorta with no aneurysm. No free fluid, intraperitoneal air or significant lymphadenopathy. GI tract: Mamie distended stomach with food and liquid. No small bowel obstruction. Prior appendecto my. Mild diffuse constipation. Distal colon is tortuous. No evidence for acute inflammation or wall t hickening. Surgical anastomotic site near the sigmoid is unchanged. Abdominal wall: Negative. No hernia. Pelvis: Minimally distended urinary bladder. Artifact through the pelvis obscures soft tissue structu res. Prior hysterectomy. Osseous structures: Prior RIGHT hip arthroplasty. CT/CT abdomen pelvis wo con [id number] IMPRESSION: 1. No renal obstruction or hydronephrosis. No perinephric stranding. 2. Nonobstructing 3 mm calcification LEFT kidney. 3. Prior appendectomy. 4. Mild diffuse constipation. No evidence for acute diverticulitis or colitis. 5. No free fluid or adenopathy. 6. Stable low-attenuation mass in the spleen is probably a cyst. No change sin ce 06/06/2021. 7. No evidence for pancreatitis.
[2022-05-25] MEDS: sodium chloride 0.9% 1,000 ML 999 ML IV ×2 (08:24→08:41)
[2022-05-25] MEDS: ondansetron 2 mg/ML SDV 2 mL 4 MG IVP (08:25)
[2022-05-25] MEDS: morphine 4 mg/mL SDV 1 mL IVP (08:26)
[2022-05-25] MEDS: diphenhydrAMINE 50 mg/mL SDV 1mL IVP (08:27)
[2022-05-25 08:44] LABS: Add Urine Microscopic? NO; Charge for UA Resulting for Rev
[2022-05-25 08:45] VITALS: BP 144/98; PULSE 82; RESP 16; O2SAT 97
[2022-05-25 08:48] LABS: Basophils % 0.5 %; Eosinophils # 0.2 10^3/uL (0.0-0.8); Eosinophils % 3.7 %; Hematocrit 37.3 % (37.0-47.0); Lymphocytes # 2.1 10^3/uL (0.8-4.8); Lymphocytes % 47.6 %; Mean Corpuscular HGB Conc 32.2 g/dL (30.0-36.0); Mean Corpuscular Hemoglobin 29.6 pg (28.0-34.0); Mean Corpuscular Volume 92.1 fl (81-99); Mean Platelet Volume 10.1 fL (7.4-10.4); Monocytes # 0.4 10^3/uL (0.2-0.9); Monocytes % 8.4 %; Neutrophils # 1.71 10^3/uL (1.8-7.7); Neutrophils % 39.6 %; Nucleated Red Blood Cells % 0 %; Platelet Count 224 10^3/cmm (130-400); Red Blood Count 4.05 10^6/uL (4.1-5.3); Red Cell Distribution Width 12.6 % (12.1-15.1); White Blood Count 4.3 10^3/uL (4.0-10.0)
[2022-05-25 08:50] LABS: Bilirubin Urine Neg (Negative); Blood Urine Neg (Negative); Glucose Urine UA Norm (Normal); Ketones Urine Negative (Negative); Leukocyte Esterase Urine Negative (Negative); Nitrate Urine Negative (Negative); Protein Urine Neg (Negative); Specific Gravity, Urine 1.015 (1.005-1.030); Urine Appearance Clear (CLEAR); Urine Color Yellow (Yellow); Urobilinogen Urine Neg (Negative); pH Urine 6.5 (5-7)
[2022-05-25 09:02] LABS: Alanine Aminotransferase 13 U/L (0-33); Albumin Level 4.3 g/dL (3.5-5.2); Alkaline Phosphatase 84 U/L (35-105); Anion Gap 14.9 (5-19); Aspartate Amino Transferase 14 U/L (0-32); Blood Urea Nitrogen 10 mg/dL (6-20); Calcium 9.3 mg/dL (8.5-10.5); Carbon Dioxide 20 mmol/L (22-29); Chloride 106 mmol/L (98-107); Globulin 2.9 g/dL (1.3-4.6); Glomerular Filtration Rate 66.8 mL/min (90-130); Glucose 130 mg/dL (65-115); Lipase 44 U/L (13-60); Osmolality Calculated 285 mOsm/kg (285-295); Potassium 3.9 mmol/L (3.5-5.1); Sodium 137 mmol/L (136-145); Total Bilirubin 0.2 mg/dL (0.15-1.2); Total Protein 7.2 g/dL (6.6-8.7)
[2022-05-25 10:11] VITALS: BP 144/98; PULSE 82; RESP 16; O2SAT 97
== END 2022-05-25 10:12 | disposition home or self-care (01) ==
PROVIDERS: Emergency Provider Family Medicine; PCP Family Medicine
DX: K59.00 Constipation, unspecified (principal); Z87.891 Personal history of nicotine dependence
CPT/HCPCS: 71045; 74176; 80053; 81003; 83605; 83690; 85025; 96361; 96374; 96375; 99285; J1200; J2270; J2405; J7030

== ENCOUNTER 2022-08-03 09:59 | Observation (INO) | payer MEDICAID, SELFPAY ==
[2022-08-03] VITALS (14 sets, daily range): BP systolic 103–137; BP diastolic 65–98; PULSE 75–97; RESP 14–16; TEMP 36.7; O2SAT 93–99; BMI 24.3
--- NOTE | 2022-08-03 10:08 | CT_ITS ---
WS: [id number] CT HEAD NONCONTRAST HISTORY: dizzy, pupil dilatation, ams TECHNIQUE: Contiguous axial imaging performed through the brain in 2.5 mm imaging. Bone and soft tiss ue windows. Sagittal and coronal reformats reviewed. All CT scans at [facility] use at least one of these dose optimization techniques: automated exposure control; mA and/or kV adjustment per pa tient size (includes targeted exams where dose is matched to clinical indication); or iterative recon struction. DLP: 995.88 mGy.cm COMPARISON: None available. No acute intracranial hemorrhage, midline shift or mass effect. No atrophy or prior infarcts or herniation. Ventricles: Normal size with no hydrocephalus. No inferior displacement of cerebellar tonsils. Paranasal sinuses: As visualized are clear. Mastoid air cells: Well pneumatized. Calvarium and scalp: Skull is intact with no soft tissue edema or swelling. CT/CT head wo con* [id number] IMPRESSION: Negative head CT.
--- NOTE | 2022-08-03 10:09 | XRR_ITS ---
PROCEDURE INFORMATION: Exam: XR Chest Exam date and time: 08/03/2022 10:23 AM Age: 47 years old Clinical indication: Shortness of breath; Additional info: AMS TECHNIQUE: Imaging protocol: Radiologic exam of the chest. Views: 1 view. COMPARISON: CR XR chest 1V portable [id number] 05/25/2022 7:25 AM FINDINGS: Lungs: Streaky bibasilar atelectasis noted, left greater than right. No consolidation. Pleural spaces: Unremarkable. No pleural effusion. No pneumothorax. Heart/Mediastinum: Stable cardiomediastinal silhouette. Bones/joints: Right shoulder arthroplasty hardware noted. XR/XR chest 1V portable [id number] IMPRESSION: No evidence of active cardiopulmonary disease.
--- NOTE | 2022-08-03 10:10 | W.ED.DIZZY ---
Documented by User: EDE Finch 08/07/22 07:26 HPI - Dizziness General: Chief Complaint: Dizziness Stated Complaint: BP high, dizzy Time Seen by Provider: 08/03/22 10:07 Source: patient Mode of arrival: wheelchair Limitations: no limitations History of Present Illness: HPI Narrative: Patient is a 47-year-old female presents to ED today along with her mother and son for evaluation of dizziness dilated pupils, and altered mental status. Patient states she felt normal this morning and had driven her son to a medical appointment and states while there she began feeling dizzy. She reported blindness (although later clarified this was just blurry vision) and family states she was hallucinating and seeing things. Family states she is on a lot of medications none of which have been recently adjusted. She denies illicit substance use. MD elicited complaint: dizziness Onset (ago): hour(s) Timing: gradual onset Severity: moderate History of similar symptoms: No Relieving factors: nothing Associated symptoms: Denies chest pain, chills, headache(s), malaise, nausea, palpitations, syncope or vomiting Associated neuro symptoms: Reports confusion; Deny numbness in extremities Stroke scale total: 0 Review of Systems Const: Denies: fever(s), chills, body aches, fatigue or malaise Eyes: Reports: change in vision and blurry vision; Denies: blind spots, photophobia, eye discomfort, eye discharge, floaters or seeing flashes Card: Denies: chest pain, palpitations, irregular heart rhythm, lightheadedness, syncope or dyspnea on exertion Resp: Denies: dyspnea, productive cough or pain on inspiration GI: Denies: abdominal pain, nausea, vomiting, heartburn or diarrhea : Denies: flank pain, dysuria, hematuria or pelvic pain Musc: Denies: neck pain, back pain, extremity pain, extremity swelling or joint pain Skin/Breast: Denies: rash Neuro: Reports: dizziness, confusion and behavioral changes; Denies: headache(s), numbness in extremities, weakness in extremities, sensory changes, Slurred speech present or seizure-like activity [facility] ED PFSH: Medical History Bipolar disorder Migraines Osteonecrosis of hip Pharyngitis Psychiatric care URI (upper respiratory infection) Surgical History H/O shoulder surgery History of hip replacement, total History of surgery of head Hx of breast biopsy Family History Other Diabetes Hypertension Social History Smoking and tobacco status: former smoker Alcohol intake: never Household members: children Marital status: Current occupational status: employed Physical Exam Const: COMMON NORMALS: average body habitus, patient oriented x3, healthy appearing, alert and well nourished EXAM LIMITATIONS: altered mental status GENERAL APPEARANCE: cooperative ORIENTATION/CONSCIOUSNESS: Yes awake, Yes oriented to person, Yes oriented to place and Yes oriented to time OTHER: slightly altered-at times she can hold conversation and answers questions appropriately but then later comments on hearts and people on the adrian and is grabbing for nonexistent objects from the air mild facial flushing HENMT: COMMON NORMALS: normocephalic and atraumatic HEAD & SCALP: normal to inspection, normocephalic and atraumatic FACE & SINUS: normal facial exam MOUTH: Normal oral and palatal mucosa present and other (no dry mucous membranes noted) Eye: COMMON NORMALS: Equal, round and reactive pupils present (reactive mydriasis), EOMs intact bilaterally and conjunctivae normal GENERAL EYE: normal light reflex ALIGNMENT: Yes alignment normal PERIORBITAL: periorbital findings normal EYELID: eyelids normal CONJUNCTIVA: Yes conjunctivae normal SCLERA: sclerae normal CORNEA: Yes corneas normal PUPIL: Yes Equal, round and reactive pupils present (reactive mydriasis) DIRECT OPHTHALMOSCOPY: Yes normal light reflex OTHER: no nystagmus but eye movements are jerky Neck/C-Spine: COMMON NORMALS: full ROM, no lymphadenopathy and no meningeal signs GENERAL: Yes normal visual inspection Resp: COMMON NORMALS: normal respiratory effort and clear to auscultation bilaterally AUSCULTATION: clear to auscultation bilaterally Cardio: COMMON NORMALS: regular rate and regular rhythm RATE: regular rate RHYTHM: regular rhythm GI: COMMON NORMALS: Normal to inspection, nondistended, normoactive bowel sounds present, Soft to palpation and non-tender PALPATION: Yes Soft to palpation : COMMON NORMALS: Yes no CVA tenderness BLADDER/KIDNEY EXAM: Yes no CVA tenderness Back/Pelvis: COMMON NORMALS: no CVA tenderness, thoracic and lumbar spine normal to inspection, no thoracic nor lumbar tenderness and thoraco-lumbar ROM normal Extremity: COMMON NORMALS: normal to inspection GENERAL: Yes normal exam except as noted Neuro: NAVNEET COMA SCALE: document GCS findings [place] coma scale eye opening: Spontaneous [place] coma scale verbal response: Orientated [place] coma scale motor response: Obey commands [place] coma scale total score: 15 COMMON NORMALS: patient oriented x3, CN's II-XII intact bilaterally, moves all extremities, no focal motor deficits and no sensory deficits noted SENSORIUM/ORIENTATION: Yes alert, Yes oriented to person, Yes oriented to place and Yes oriented to time MENINGEAL SIGNS: Yes no meningeal signs GAIT: Yes Unable to assess gait MOTOR EXAM: 5/5 motor strength present throughout Skin: COMMON NORMALS: no rashes or lesions noted NARRATIVE SKIN EXAM: mild facial flushing GENERAL SKIN EXAM: no rashes or lesions noted Course Consultations: Consultation #1: [facility]/roll forming supervisor-they didn't feel symptoms would be related to any of her chronic home medications Vital Signs: Vital signs: Vital Signs Temperature 98.9 F 08/04/22 12:00 Pulse Rate 85 08/04/22 12:00 Respiratory Rate 16 08/04/22 12:00 Blood Pressure 118/77 08/04/22 12:00 Pulse Oximetry 96 08/04/22 12:00 Oxygen Delivery Me thod 08/04/22 07:59 MDM - Dizziness Medical Decision Making Patient arrived to the ED with complaints of hallucinations/altered mental status, facial flushing, dilated pupils with complaints of altered vision, and dizziness. Symptoms initially concerning for possible anticholinergic overdose however patient is not on any anticholinergic medications. She is also not agitated, tachycardic, or febrile. I did speak to roll forming supervisor at [employer] and ran all of her home medications by them who did not feel symptoms would be consistent with normal usage of her chronic medications. On re-examination her mental status has improved and she is no longer hallucinating. Ambulation trial attempted and she was very ataxic with significant dizziness. Spoke to Dr. Vaughan and we will MRI her head to evaluate for cerebellar stroke. We will add ESR. He will evaluate patient as well. Lab Data 08/03/22 11:00 08/03/22 11:[address] 08/03/22 10:08 IMPRESSION: Negative head CT. Chest X-Ray 08/03/22 10:09 IMPRESSION: No evidence of active cardiopulmonary disease. Head MRI 08/03/22 14:44 IMPRESSION: 1. No evidence of restricted diffusion to suggest acute ischemia. 2. Minimal periventricular white matter changes. 3. No hemosiderin on the susceptibly weighted images. 4. Paranasal sinuses and mastoid air cells are well aerated. 5. No other suspicious findings. Laboratory Results WBC 4.3 10^3/uL (4.0-10.0) 08/03/22 11:00 RBC 4.31 10^6/uL (4.1-5.3) 08/03/22 11:00 Hgb 12.6 g/dL (11.5-15.3) 08/03/22 11:00 Hct 38.2 % (37.0-47.0) 08/03/22 11:00 MCV 88.6 fl (81-99) 08/03/22 11:00 MCH 29.2 pg (28.0-34.0) 08/03/22 11:00 MCHC 33.0 g/dL (30.0-36.0) 08/03/22 11:00 RDW 12.7 % (12.1-15.1) 08/03/22 11:00 Plt Count 209 10^3/cmm (130-400) 08/03/22 11:00 MPV 10.3 fL (7.4-10.4) 08/03/22 11:00 Neut % (Auto) 41.9 % 08/03/22 11:00 Lymph % (Auto) 49.0 % 08/03/22 11:00 [place] % (Auto) 6.5 % 08/03/22 11:00 Eos % (Auto) 1.9 % 08/03/22 11:00 Baso % (Auto) 0.5 % 08/03/22 11:00 Neut # (Auto) 1.80 10^3/uL (1.8-7.7) 08/03/22 11:00 Lymph # (Auto) 2.1 10^3/uL (0.8-4.8) 08/03/22 11:00 [place] # (Auto) 0.3 10^3/uL (0.2-0.9) 08/03/22 11:00 Eos # (Auto) 0.1 10^3/uL (0.0-0.8) 08/03/22 11:00 Baso # (Auto) 0.0 10^3/uL (0.0-0.1) 08/03/22 11:00 Nucleated RBC % (auto) 0 % 08/03/22 11:00 Nucleated RBCs # 0.0 /100WBC 08/03/22 11:00 ESR 3 mm/hr (0-15) 08/03/22 15:00 Sodium 141 mmol/L (136-145) 08/03/22 11:34 Potassium 3.7 mmol/L (3.5-5.1) 08/03/22 11:34 Chloride 109 mmol/L (98-107) H 08/03/22 11:34 Carbon Dioxide 20 mmol/L (22-29) L 08/03/22 11:34 Anion Gap 15.7 (5-19) 08/03/22 11:34 BUN 7 mg/dL (6-20) 08/03/22 11:34 Creatinine 0.7 mg/dL (0.5-0.9) 08/03/22 11:34 GFR Calculation 89.3 mL/min (90-130) L 08/03/22 11:34 Glucose 119 mg/dL (65-115) H 08/03/22 11:34 Calculated Osmolality 291 mOsm/kg (285-295) 08/03/22 11:34 Calcium 8.8 mg/dL (8.5-10.5) 08/03/22 11:34 Total Bilirubin 0.2 mg/dL (0.15-1.2) 08/03/22 11:34 AST 14 U/L (0-32) 08/03/22 11:34 ALT 13 U/L (0-33) 08/03/22 11:34 Alkaline Phosphatase 89 U/L (35-105) 08/03/22 11:34 Total Protein 7.0 g/dL (6.6-8.7) 08/03/22 11:34 Albumin 4.1 g/dL (3.5-5.2) 08/03/22 11:34 Globulin 2.9 g/dL (1.3-4.6) 08/03/22 11:34 HCG, Qual Negative (Negative) 08/03/22 11:00 Urine Color Yellow (Yellow) 08/03/22 12:00 Urine Appearance Clear (CLEAR) 08/03/22 12:00 Urine pH 6.5 (5-7) 08/03/22 12:00 Ur Specific [place] 1.005 (1.005-1.030) 08/03/22 12:00 Urine Protein Neg (Negative) 08/03/22 12:00 Urine Glucose (UA) Norm (Normal) 08/03/22 12:00 Urine Ketones Negative (Negative) 08/03/22 12:00 Urine Blood Neg (Negative) 08/03/22 12:00 Urine Nitrate Negative (Negative) 08/03/22 12:00 Urine Bilirubin Neg (Negative) 08/03/22 12:00 Urine Urobilinogen Neg mg/dL (Negative) 08/03/22 12:00 Ur Leukocyte Esterase Negative (Negative) 08/03/22 12:00 Salicylates < 0.3 mg/dL (3-10) L 08/03/22 11:34 Urine Opiates Screen Negative ng/mL (Negative) 08/03/22 12:00 Acetaminophen < 5.0 ug/mL (10-30) L 08/03/22 11:34 Ur Barbiturates Screen Negative ng/mL (Negative) 08/03/22 12:00 Oxcarbazepine Metabol 13.1 mcg/mL (8.0-35.0) 08/03/22 11:00 Ur Phencyclidine Scrn Negative ng/mL (Negative) 08/03/22 12:00 Ur Amphetamines Screen Negative ng/mL (Negative) 08/03/22 12:00 U Benzodiazepines Scrn Negative ng/mL (Negative) 08/03/22 12:00 Urine Cocaine Screen Negative ng/mL (Negative) 08/03/22 12:00 U Marijuana (THC) Screen Negative ng/mL (Negative) 08/03/22 12:00 Ethyl Alcohol < 10 mg/dL (0-10) 08/03/22 11:34 Discharge Plan Discharge Patient Disposition: Placed in Observation Admit Provider: Augie Hoffmann Clinical Impression: Vertigo, Medication side effects Coding Level of Care Code ED Artificial Plastic Eye Maker for Chg Fwd Documented by User: Paulo Vaughan DO 08/03/22 16:51 HPI - Dizziness General: Chief Complaint: Dizziness Stated Complaint: BP high, dizzy Time Seen by Provider: 08/03/22 10:07 PFSH ED PFSH: Medical History Bipolar disorder Migraines Osteonecrosis of hip Pharyngitis Psychiatric care URI (upper respiratory infection) Surgical History H/O shoulder surgery History of hip replacement, total History of surgery of head Hx of breast biopsy Family History Other Diabetes Hypertension Social History Smoking and tobacco status: former smoker Alcohol intake: never Household members: children Marital status: Current occupational status: employed Physical Exam Neuro: NAVNEET COMA SCALE: document GCS findings [place] coma scale total score: 15 Course Reevaluation(s): Reevaluation #1: This case was discussed with the advanced nurse practitioner who initially care for this patient. Detailed history is included in the HPI of this medical record. I did a focused interview and a focused evaluation of this patient as part of the her emergency department evaluation as well. As noted she had a history of headache with symptoms of dizziness and unsteadiness of gait that began sometime earlier today. Mother also had stated that she noted that her pupils appear to be dilated during the symptoms as well. The patient denies any significant head trauma although she states she bumped her head up couple weeks ago at [facility] but did not suffer a loss of consciousness. The patient takes a number of mood stabilizing medications but none of those are new and there is been no changing in the dosing recently. She denies any fevers or chills but has had some nausea. She states she has felt the dizziness symptoms continuously. No associated weakness or other neurologic symptoms. Focused examination reveals her to be alert. Pupils are equal and respond both direct and consensually to light. She does have some subtle horizontal nystagmus more prominent with the fast component to the left. Oropharynx is clear. Ears are clear. Neck is supple and there is no cervical spine tenderness or step-off. There is no carotid bruits. Neurologic examination of the focus nature revealed intact cranial nerves as tested. She does not have any sensory deficits. She does not have any motor deficits. She does display some dysmetria with [id number] testing and [id number] testing. Current noncontrast CT, sedimentation rate etc. are reassuring however we have obtained an MRI to evaluate for potential cerebellar concerns. Time: 16:13 Reevaluation #2: Patient was reevaluated essentially unchanged. Given her current picture and her reassuring nature of her MRI 1 wonders if this might be medication related. We will place her in observation to allow her medications to metabolize and see if her symptoms improved. Time: 16:49 Consultations: Consultation #2: Discussed with Dr. Louise who agreed to place the patient in observation. Time: 16:49 Consultation #3: I did discuss with Dr. [place] consulting neurologist who suggested perhaps this is medication related and suggested getting medication levels to document whether or not there is significantly elevated. She recommends holding these medications overnight and would expect improvement in her symptoms. Time: 16:50 Vital Signs: Vital signs: Vital Signs Temperature 98.9 F 08/04/22 12:00 Pulse Rate 85 08/04/22 12:00 Respiratory Rate 16 08/04/22 12:00 Blood Pressure 118/77 08/04/22 12:00 Pulse Oximetry 96 08/04/22 12:00 Oxygen Delivery Me thod 08/04/22 07:59 MDM - Dizziness Lab Data I reviewed the patient's lab results. 08/03/22 11:00 08/03/22 11:[address] 08/03/22 10:08 IMPRESSION: Negative head CT. Chest X-Ray 08/03/22 10:09 IMPRESSION: No evidence of active cardiopulmonary disease. Head MRI 08/03/22 14:44 IMPRESSION: 1. No evidence of restricted diffusion to suggest acute ischemia. 2. Minimal periventricular white matter changes. 3. No hemosiderin on the susceptibly weighted images. 4. Paranasal sinuses and mastoid air cells are well aerated. 5. No other suspicious findings. Laboratory Results WBC 4.3 10^3/uL (4.0-10.0) 08/03/22 11:00 RBC 4.31 10^6/uL (4.1-5.3) 08/03/22 11:00 Hgb 12.6 g/dL (11.5-15.3) 08/03/22 11:00 Hct 38.2 % (37.0-47.0) 08/03/22 11:00 MCV 88.6 fl (81-99) 08/03/22 11:00 MCH 29.2 pg (28.0-34.0) 08/03/22 11:00 MCHC 33.0 g/dL (30.0-36.0) 08/03/22 11:00 RDW 12.7 % (12.1-15.1) 08/03/22 11:00 Plt Count 209 10^3/cmm (130-400) 08/03/22 11:00 MPV 10.3 fL (7.4-10.4) 08/03/22 11:00 Neut % (Auto) 41.9 % 08/03/22 11:00 Lymph % (Auto) 49.0 % 08/03/22 11:00 [place] % (Auto) 6.5 % 08/03/22 11:00 Eos % (Auto) 1.9 % 08/03/22 11:00 Baso % (Auto) 0.5 % 08/03/22 11:00 Neut # (Auto) 1.80 10^3/uL (1.8-7.7) 08/03/22 11:00 Lymph # (Auto) 2.1 10^3/uL (0.8-4.8) 08/03/22 11:00 [place] # (Auto) 0.3 10^3/uL (0.2-0.9) 08/03/22 11:00 Eos # (Auto) 0.1 10^3/uL (0.0-0.8) 08/03/22 11:00 Baso # (Auto) 0.0 10^3/uL (0.0-0.1) 08/03/22 11:00 Nucleated RBC % (auto) 0 % 08/03/22 11:00 Nucleated RBCs # 0.0 /100WBC 08/03/22 11:00 ESR 3 mm/hr (0-15) 08/03/22 15:00 Sodium 141 mmol/L (136-145) 08/03/22 11:34 Potassium 3.7 mmol/L (3.5-5.1) 08/03/22 11:34 Chloride 109 mmol/L (98-107) H 08/03/22 11:34 Carbon Dioxide 20 mmol/L (22-29) L 08/03/22 11:34 Anion Gap 15.7 (5-19) 08/03/22 11:34 BUN 7 mg/dL (6-20) 08/03/22 11:34 Creatinine 0.7 mg/dL (0.5-0.9) 08/03/22 11:34 GFR Calculation 89.3 mL/min (90-130) L 08/03/22 11:34 Glucose 119 mg/dL (65-115) H 08/03/22 11:34 Calculated Osmolality 291 mOsm/kg (285-295) 08/03/22 11:34 Calcium 8.8 mg/dL (8.5-10.5) 08/03/22 11:34 Total Bilirubin 0.2 mg/dL (0.15-1.2) 08/03/22 11:34 AST 14 U/L (0-32) 08/03/22 11:34 ALT 13 U/L (0-33) 08/03/22 11:34 Alkaline Phosphatase 89 U/L (35-105) 08/03/22 11:34 Total Protein 7.0 g/dL (6.6-8.7) 08/03/22 11:34 Albumin 4.1 g/dL (3.5-5.2) 08/03/22 11:34 Globulin 2.9 g/dL (1.3-4.6) 08/03/22 11:34 HCG, Qual Negative (Negative) 08/03/22 11:00 Urine Color Yellow (Yellow) 08/03/22 12:00 Urine Appearance Clear (CLEAR) 08/03/22 12:00 Urine pH 6.5 (5-7) 08/03/22 12:00 Ur Specific [place] 1.005 (1.005-1.030) 08/03/22 12:00 Urine Protein Neg (Negative) 08/03/22 12:00 Urine Glucose (UA) Norm (Normal) 08/03/22 12:00 Urine Ketones Negative (Negative) 08/03/22 12:00 Urine Blood Neg (Negative) 08/03/22 12:00 Urine Nitrate Negative (Negative) 08/03/22 12:00 Urine Bilirubin Neg (Negative) 08/03/22 12:00 Urine Urobilinogen Neg mg/dL (Negative) 08/03/22 12:00 Ur Leukocyte Esterase Negative (Negative) 08/03/22 12:00 Salicylates < 0.3 mg/dL (3-10) L 08/03/22 11:34 Urine Opiates Screen Negative ng/mL (Negative) 08/03/22 12:00 Acetaminophen < 5.0 ug/mL (10-30) L 08/03/22 11:34 Ur Barbiturates Screen Negative ng/mL (Negative) 08/03/22 12:00 Oxcarbazepine Metabol 13.1 mcg/mL (8.0-35.0) 08/03/22 11:00 Ur Phencyclidine Scrn Negative ng/mL (Negative) 08/03/22 12:00 Ur Amphetamines Screen Negative ng/mL (Negative) 08/03/22 12:00 U Benzodiazepines Scrn Negative ng/mL (Negative) 08/03/22 12:00 Urine Cocaine Screen Negative ng/mL (Negative) 08/03/22 12:00 U Marijuana (THC) Screen Negative ng/mL (Negative) 08/03/22 12:00 Ethyl Alcohol < 10 mg/dL (0-10) 08/03/22 11:34 Discharge Plan Discharge Patient Disposition: Placed in Observation Admit Provider: Augie Hoffmann Clinical Impression: Vertigo, Medication side effects Coding Level of Care Code ED Artificial Plastic Eye Maker for Flor Alejandro
[2022-08-03 11:17] LABS: Basophils % 0.5 %; Eosinophils # 0.1 10^3/uL (0.0-0.8); Eosinophils % 1.9 %; Hematocrit 38.2 % (37.0-47.0); Hemoglobin 12.6 g/dL (11.5-15.3); Lymphocytes # 2.1 10^3/uL (0.8-4.8); Mean Corpuscular Hemoglobin 29.2 pg (28.0-34.0); Mean Corpuscular Volume 88.6 fl (81-99); Mean Platelet Volume 10.3 fL (7.4-10.4); Monocytes # 0.3 10^3/uL (0.2-0.9); Monocytes % 6.5 %; Neutrophils % 41.9 %; Nucleated Red Blood Cells % 0 %; Platelet Count 209 10^3/cmm (130-400); Red Blood Count 4.31 10^6/uL (4.1-5.3); Red Cell Distribution Width 12.7 % (12.1-15.1); White Blood Count 4.3 10^3/uL (4.0-10.0)
[2022-08-03 11:29] LABS: HCG, Serum Qual Negative (Negative)
[2022-08-03 11:59] LABS: Alanine Aminotransferase 13 U/L (0-33); Albumin Level 4.1 g/dL (3.5-5.2); Alkaline Phosphatase 89 U/L (35-105); Anion Gap 15.7 (5-19); Aspartate Amino Transferase 14 U/L (0-32); Blood Urea Nitrogen 7 mg/dL (6-20); Calcium 8.8 mg/dL (8.5-10.5); Carbon Dioxide 20 mmol/L (22-29); Chloride 109 mmol/L (98-107); Globulin 2.9 g/dL (1.3-4.6); Glomerular Filtration Rate 89.3 mL/min (90-130); Glucose 119 mg/dL (65-115); Osmolality Calculated 291 mOsm/kg (285-295); Potassium 3.7 mmol/L (3.5-5.1); Sodium 141 mmol/L (136-145); Total Bilirubin 0.2 mg/dL (0.15-1.2)
[2022-08-03 12:00] LABS: Acetaminophen < 5.0 ug/mL (10-30); Alcohol Level < 10 mg/dL (0-10); Salicylate < 0.3 mg/dL (3-10)
[2022-08-03] MEDS: sodium chloride 0.9% 1,000 ML 999 ML IV (12:08)
[2022-08-03] MEDS: ondansetron 2 mg/ML SDV 2 mL 4 MG IVP ×2 (12:25→17:08)
[2022-08-03 14:01] LABS: Add Urine Microscopic? NO; Charge for UA Resulting for Rev
[2022-08-03 14:10] LABS: Bilirubin Urine Neg (Negative); Blood Urine Neg (Negative); Glucose Urine UA Norm (Normal); Ketones Urine Negative (Negative); Leukocyte Esterase Urine Negative (Negative); Nitrate Urine Negative (Negative); Protein Urine Neg (Negative); Specific Gravity, Urine 1.005 (1.005-1.030); Urine Appearance Clear (CLEAR); Urine Color Yellow (Yellow); Urobilinogen Urine Neg (Negative); pH Urine 6.5 (5-7)
[2022-08-03 14:15] LABS: Amphetamines Screen Urine Negative (Negative); Barbiturates Screen Urine Negative (Negative); Benzodiazepines Screen Urine Negative (Negative); Cocaine Screen Urine Negative (Negative); Opiate Screen Urine Negative (Negative); PCP Screen Urine Negative (Negative); THC Screen Urine Negative (Negative)
--- NOTE | 2022-08-03 14:44 | MR_ITS ---
WS: [id number] MRI HEAD WITHOUT CONTRAST TECHNIQUE: Sagittal T1, T2 axial, T2 axial FLAIR, axial and coronal T1 images, axial susceptibility w eighted imaging, axial diffusion weighted images, and coronal T2 images were obtained. CLINICAL INFORMATION: dizzy, visual changes, ataxia COMPARISON: CT head August 03, 2022 FINDINGS: No evidence of restricted diffusion to suggest acute ischemia. Ventricular system and basal cisterns are patent. Minimal periventricular white matter changes. No significant parenchymal volume loss. Nor mal posterior fossa. Normal vascular flow voids at the skull base. No extra-axial fluid collections. No evidence of mass or mass effect. Paranasal sinuses are well aerated. Mastoid air cells are well ae rated. Normal optic chiasm and pituitary infundibulum. Normal cavernous sinuses and Meckel's cave. MR/MR head wo con* [id number] IMPRESSION: 1. No evidence of restricted diffusion to suggest acute ischemia. 2. Minimal periventricular white matter changes. 3. No hemosiderin on the susceptibly weighted images. 4. Paranasal sinuses and mastoid air cells are well aerated. 5. No other suspicious findings.
[2022-08-03] MEDS: promethazine 25 mg/mL SDV 1 mL IM (15:08)
[2022-08-03 15:12] LABS: Erythrocyte Sedimentation Rate 3 mm/hr (0-15)
--- NOTE | 2022-08-03 17:09 | PC.NURSE ---
dr tlaley in room.
--- NOTE | 2022-08-03 18:00 | P.HP_ITS ---
Providers/Chief Complaint Primary Care Provider: Tarik Villasenor DO Chief Complaint: BP high, dizzy History of Present Illness 47-year-old lady with bipolar disorder, migraine history, and a number of medications including antiepileptics with lamotrigine, oxcarbazepine, topiramate, as well as gabapentin, clonazepam, trazodone, but states has been recently in baseline state of health, this morning when she was taking her son to see a physician, she started experiencing dizziness, difficulty walking, also states difficulty seeing and everything spinning [id number]. She reports also having some left-sided chest pain rating to her back. It was there just sitting down. Sitting upright makes it somewhat worse. Denies it is worse with movement or deep breaths. He says that it went away with a baby aspirin. She has been experiencing nausea, no vomiting. She has also been having mild headache, but not like her typical migraine. Denies photophobia. Denies noticing any numbness or weakness in any particular extremity. Her mother has noticed that she has been quite slowed/sluggish, where she is usually much more energetic. She has not had any syncopal or presyncopal episodes. At most as from ER physician's report she bumped her head at [employer] several weeks ago without any residual sequela and without loss of consciousness. She denies any recent URI or flulike or diarrheal illness. Denies any ear pain, hearing loss. She has bilateral chronic tinnitus. She denies missing any of her medications recently. Denies taking any extra doses. Most of the history had to be obtained from the mother as patient is not feeling well and is very slow to respond. Review of Systems Const: Denies: fever(s), chills, body aches or malaise Eyes: Reports: blurry vision; Denies: photophobia, eye discomfort, eye redness, floaters or seeing flashes ENMT: Denies: throat pain, oral sores or ear or mastoid pain Card: Reports: chest pain; Denies: edema, pre-syncope or dyspnea on exertion Resp: Denies: dyspnea, productive cough, change in phlegm color or hemoptysis GI: Reports: nausea; Denies: abdominal pain, vomiting, diarrhea, constipation, hematochezia or melena : Denies: flank pain, urinary frequency or hematuria Musc: Denies: back pain, joint swelling or joint redness Skin/Breast: Denies: rash or new lesions Neuro: Reports: headache(s) and dizziness; Denies: numbness in extremities, weakness in extremities or seizure-like activity Medications/Allergies Home Medications Medication Instructions Recorded Confirmed Last Taken Type albuterol sulfate 90 mcg/actuation 2 puff inhalation Q6H PRN 10/19/21 08/03/22 Unknown Rx aerosol inhaler (Ventolin HFA) shortness of breath or wheezing #8.5 grams ibuprofen 200 mg tablet (Advil) 800 mg PO Q6H PRN Pain 03/22/22 08/03/22 Unknown History omeprazole 40 mg capsule,delayed See Rx Instructions .Route 07/20/22 08/03/22 08/03/22 Rx release .COMPLEX #30 caps clonazepam 1 mg tablet 1 mg PO DAILY@0830 #30 tabs 08/03/22 08/03/22 08/03/22 Rx gabapentin 300 mg capsule 1,200 mg PO BID 08/03/22 08/03/22 08/03/22 History lamotrigine 200 mg tablet 400 mg PO DAILY 08/03/22 08/03/22 08/03/22 History oxcarbazepine 300 mg tablet 300 mg PO BID 08/03/22 08/03/22 08/03/22 History topiramate 100 mg tablet 200 mg PO BEDTIME 08/03/22 08/03/22 08/02/22 History trazodone 100 mg tablet 200 mg PO BEDTIME 08/03/22 08/03/22 08/02/22 History Allergies Allergy/AdvReac Type Severity Reaction Status Date / Time Sulfa (Sulfonamide Allergy Severe closed Verified 06/20/22 11:34 Antibiotics) throat haloperidol [From Haldol] Allergy Intermediate increased Verified 06/20/22 11:34 anxiety levofloxacin [From Levaquin] Allergy Intermediate hives Verified 06/20/22 11:34 ketorolac [From Toradol] Allergy ALGY-Swell Verified 06/20/22 11:34 Lip/Tongue/Throat metoclopramide [From Reglan] Allergy ALGY-Swell Verified 06/20/22 11:34 Lip/Tongue/Throat morphine Allergy ADR-Itching Verified 06/20/22 11:34 PFSH Acute PFSH: Medical History Bipolar disorder Migraines Osteonecrosis of hip Pharyngitis Psychiatric care URI (upper respiratory infection) Surgical History H/O shoulder surgery History of hip replacement, total History of surgery of head Hx of breast biopsy Family History Other Diabetes Hypertension Social History Smoking and tobacco status: former smoker Alcohol intake: never Household members: children Marital status: Current occupational status: employed Vitals/I&O/Wt Last Vital Signs Pulse 97 08/03/22 10:08 Resp 16 08/03/22 10:08 BP 118/79 08/03/22 17:30 Pulse Ox 97 08/03/22 17:30 O2 Del Method 08/03/22 10:08 08/03/22 08/03/22 08/03/22 06:59 14:59 22:59 Intake Total 1000 / 1000 Balance 1000 / 1000 Weight last 48 hrs Weight 72.575 kg Physical Exam Const: COMMON NORMALS: patient oriented x3 GENERAL APPEARANCE: cooperative ORIENTATION/CONSCIOUSNESS: Yes awake HENMT: COMMON NORMALS: oropharynx normal Neck/C-Spine: COMMON NORMALS: no JVD Resp: COMMON NORMALS: normal respiratory effort and clear to auscultation bilaterally AUSCULTATION: clear to auscultation bilaterally Cardio: COMMON NORMALS: no JVD, regular rhythm, S1 normal heart sound present, S2 normal heart sound present and No murmurs present (Cardio) RHYTHM: regular rhythm HEART SOUNDS: S1 normal heart sound present and S2 normal heart sound present GI: COMMON NORMALS: Normal to inspection, nondistended, normoactive bowel sounds present, Soft to palpation and non-tender PALPATION: Yes Soft to palpation Extremity: COMMON NORMALS: no joint enlargement and no pedal edema Neuro: COMMON NORMALS: patient oriented x3 and moves all extremities OTHER: Sluggish speech and movement. Responsive. Follows directions. No trouble tracking. Nystagmus at left most gaze. Diplopia when counting fingers with both eyes open as well as each individual eye. Visual carrillo full to confrontation. No visual extinction. Mild dysmetria. Symmetrical sensation. Power decreased in left lower extremities, more on the left when lifting the legs off the bed. No pronator drift. Diminished LE reflexes. Could not elicit vertigo/nystagmus with [place]-Hallpike. Skin: COMMON NORMALS: no rashes or lesions noted GENERAL SKIN EXAM: no rash es or lesions noted Data 08/03/22 11:00 08/03/22 11:34 A&P Assessment and plan (1) Ataxia: Ataxia, vertigo, diplopia, mild headache, earlier blurred vision. Diminished lower extremity reflexes noted. As per discussion with ER physician likely due to toxic effect of her medications all of which can cause the above symptoms. MRI results reviewed, no suggestion of CVA. Noted minimal periventricular white matter changes. Antiepileptic levels have been requested. We will hold the home lamotrigine, oxcarbazepine, topiramate, gabapentin, monitor her overnight. Reassess again in the morning. Antiemetics, her mother states that Zofran does not work. States Phenergan works. Meclizine as needed. PT assessment. Chemistry panel, UDS, ESR results noted. (2) Chest pain: Atypical chest pain. CXR noted unremarkable. Obtain troponin EKG series. Plan Headache: Tylenol as needed. Monitor vitals. She is afebrile, without leukocytosis. Discussing with ER physician, low suspicion for CENTER MEDICAL SPECIALIST infection. Bipolar disorder Migraines Attestations Medical Necessity Statement*: Place in observation to acute change in neurologic status. Diagnoses Ataxia R27.0 Chest pain R07.9
--- NOTE | 2022-08-03 20:02 | ECG_ITS ---
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 Measurements Intervals [place] Rate: 74 P: 58 DE: 174 QRS: 24 QRSD: 88 T: 0 QT: 365 QTc: 407 Interpretive Statements SINUS RHYTHM NONSPECIFIC T-WAVE ABNORMALITY Compared to ECG 03/22/2022 13:10:44 No significant changes Electronically Signed On 08-04-2022 21:48:25 COVERSTITCH MACHINE OPERATOR by Flor Salas M.D. [id number]
[2022-08-03 20:38] LABS: Troponin(5th) Baseline 6 ng/L (0-10)
[2022-08-03] MEDS: trazodone 100 mg Tablet 200 MG PO (22:22)
[2022-08-03 22:38] LABS: Troponin 5 2HR 6.66 ng/L (0-10)
[2022-08-03 23:27] LABS: Troponin 5 2HR Delta 0.66 ABS# (0-10)
[2022-08-04] VITALS: BP 103/67; PULSE 78; RESP 13; TEMP 36.8; O2SAT 90
[2022-08-04] MEDS: promethazine 25 mg Tablet PO (00:11)
[2022-08-04] MEDS: gabapentin 300 mg Capsule 1200 MG PO (00:11)
--- NOTE | 2022-08-04 00:51 | ECG_ITS ---
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 Measurements Intervals [place] Rate: 77 P: 28 [place]: 165 QRS: 28 QRSD: 88 T: 38 QT: 362 QTc: 412 Interpretive Statements SINUS RHYTHM NONSPECIFIC T-WAVE ABNORMALITY Compared to ECG 08/03/2022 18:37:02 No significant changes Electronically Signed On 08-04-2022 21:53:18 SHOE IRONER by Flor Salas M.D. [id number]
[2022-08-04 04:00] VITALS: BP 112/74; PULSE 82; RESP 14; TEMP 36.9; O2SAT 96
[2022-08-04 04:01] LABS: Troponin 5 6HR Delta -0.66 ng/L (0-12)
[2022-08-04 07:59] VITALS: PULSE 76; RESP 15; O2SAT 96
[2022-08-04 08:00] VITALS: BP 100/66; PULSE 80; RESP 15; TEMP 36.9; O2SAT 94
--- NOTE | 2022-08-04 08:05 | PC.NURSE ---
Patient's medications for migraine are being held per orders until labs received. Patient rested well during the night and denied any dizziness this morning. She also denies any nausea.
[2022-08-04] MEDS: CLONazepam 1 mg Tablet PO (10:52)
[2022-08-04] MEDS: pantoprazole DR 40 mg Tablet PO (10:52)
[2022-08-04] MEDS: acetaminophen 1,000 MG/100 ML PIGGYBACK 400 MG IV (10:54)
--- NOTE | 2022-08-04 10:58 | PC.CHAP ---
Pastoral Care Encounter/Spiritual Assessment Type of Contact [] Declined mine car dispatcher visit [] Patient/Family/Request visit [] Outpatient visit [] Follow-up visit [] Physician referral [] Code/Alert [x] Routine visit [] Staff referral [] Actively dying [] Patient sleeping [] Family support [] [] Out of room [] Palliative care [] [] Receiving care in room [] Pre-surgical visit [] Trauma [] Long length of stay [] ICU visit [] Other: Relational/Emotional Strength [] Patient feels connected with others/family/visitors/staff [] Distress [] Loneliness/isolation [] Abandonment Spirituality of Patient [] Person of Yanely [] Attends Sabianism of their Yanely [] Believes in Prayer [] Reads Bible or Mormon materials [] There are Spiritual issues to be addressed Molecular Biology Professor Interventions [x] Prayer [] Active listening [] Non-anxious presence [] Spiritual/emotional support [] Crisis/trauma care [] Spiritual counseling [] Bereavement support [] Provided bereavement packet [] Provided Bible/devotional materials [] Provided toy/stuffed animal, coloring book to patient or family member [] Provided Communion [] Anointing/[place] [] Salvation [] Completed spiritual assessment [] Other: Impact on Illness or Injury [] Angry [] Fearful [] Anxious [] Often cries [] Exhaustion [] Unable to work [] Unable to attend alevism [] Unable to walk/stand [] Unable to read [] Unable to drive [] Unable to eat/drink [] Unable to sleep [] Unable to be with family [] Patient intubated [] Other: Summary Time spent with patient
[2022-08-04 12:00] VITALS: BP 118/77; PULSE 85; RESP 16; TEMP 37.2; O2SAT 96
--- NOTE | 2022-08-04 17:44 | PC.NURSE ---
1530 discharge instructions given to patient who voiced understanding. 1545 patient discharged to home per family patient in stable condition.
--- NOTE | 2022-08-04 18:00 | PM.DCS ---
Discharge Providers Date of Admission: 08/03/22 18:04 Date of Discharge: August 04, 2022 Attending Provider at Admission: Augie Hoffmann Attending Provider at Discharge: Augie Hoffmann Primary Care Provider: Tarik Villasenor DO Diagnoses at Discharge Discharge Diagnosis (1) Ataxia: Status: Acute (2) Chest pain: Status: Acute Reason for Visit Reason for Visit: BP high, dizzy Brief History: 47-year-old lady with bipolar disorder, migraine history, and a number of medications including antiepileptics with lamotrigine, oxcarbazepine, topiramate, as well as gabapentin, clonazepam, trazodone, but states has been recently in baseline state of health, this morning when she was taking her son to see a physician, she started experiencing dizziness, difficulty walking, also states difficulty seeing and everything spinning [id number].? She reports also having some left-sided chest pain rating to her back.? It was there just sitting down.? Sitting upright makes it somewhat worse.? Denies it is worse with movement or deep breaths.? He says that it went away with a baby aspirin.? She has been experiencing nausea, no vomiting.? She has also been having mild headache, but not like her typical migraine.? Denies photophobia.? Denies noticing any numbness or weakness in any particular extremity.? Her mother has noticed that she has been quite slowed/sluggish, where she is usually much more energetic.? She has not had any syncopal or presyncopal episodes.? At most as from ER physician's report she bumped her head at [employer] several weeks ago without any residual sequela and without loss of consciousness.? She denies any recent URI or flulike or diarrheal illness.? Denies any ear pain, hearing loss.? She has bilateral chronic tinnitus. She denies missing any of her medications recently.? Denies taking any extra doses. Most of the history had to be obtained from the mother as patient is not feeling well and is very slow to respond. Noncontrast MRI without evidence of acute ischemia. Minimal periventricular white matter changes. She had no new otologic complaints. [place]-Hallpike negative. UDS unremarkable. Hospital Course Hospital Course In the morning she is found with vertigo, diplopia and ataxia resolved, resolved slowed movements and responses, still having a headache for which she was given 1000 mg IV Tylenol. No meningeal signs. Remains afebrile without leukocytosis with low suspicion for AUTOMATIC MOUNTER infection. Weakness has resolved and she reports no longer having any trouble with ambulation on multiple trips to the restroom. Levels of oxcarbazepine, lamotrigine and topiramate are pending and are not expected back for a while. As concern has been expressed regarding medication toxicity, her gabapentin and topiramate doses are decreased to 900 mg and 150 mg twice daily respectively. She is referred for follow-up with neurology for assessment of her difficult control migraines and antiepileptic polypharmacy with suspected toxicity. No further chest pain. Troponin and EKG series without suggestion of ischemia. Physical Exam Const: COMMON NORMALS: patient oriented x3 and alert GENERAL APPEARANCE: cooperative ORIENTATION/CONSCIOUSNESS: Yes awake HENMT: COMMON NORMALS: oropharynx normal Neck/C-Spine: COMMON NORMALS: no JVD Resp: COMMON NORMALS: normal respiratory effort and clear to auscultation bilaterally AUSCULTATION: clear to auscultation bilaterally Cardio: COMMON NORMALS: no JVD, regular rhythm, S1 normal heart sound present, S2 normal heart sound present and No murmurs present (Cardio) RHYTHM: regular rhythm HEART SOUNDS: S1 normal heart sound present and S2 normal heart sound present GI: COMMON NORMALS: Normal to inspection, nondistended, normoactive bowel sounds present, Soft to palpation and non-tender PALPATION: Yes Soft to palpation Extremity: COMMON NORMALS: no joint enlargement and no pedal edema Neuro: COMMON NORMALS: patient oriented x3 and moves all extremities SENSORIUM/ORIENTATION: Yes alert OTHER: Diplopia, ataxia, weakness, slowed movements responses all resolved. Skin: COMMON NORMALS: no rashes or lesions noted GENERAL SKIN EXAM: no rashes or lesions noted Discharge Data Studies Completed and Pending Completed Studies During Hospitalization Category Date Time Status CT head wo con* [id number] Urgent Cat Scan 08/03/22 10:08 Completed XR chest 1V portable [id number] Urgent Exams 08/03/22 10:09 Completed MR head wo con* [id number] Stat MRI 08/03/22 14:44 Completed Pending at discharge Category Date Time Status Drug Screen, Urine Stat Lab 08/03/22 11:14 Ordered Lamotrigine (Lamictal) Level Timed Lab 08/03/22 11:00 Received Oxcarbazepine Metabolite Routine Lab 08/03/22 11:00 Received Topiramate Level Timed Lab 08/03/22 11:00 Received Urinalysis Stat Lab 08/03/22 11:14 Ordered Radiology Impressions Head CT 08/03/22 10:08 IMPRESSION: Negative head CT. Chest X-Ray 08/03/22 10:09 IMPRESSION: No evidence of active cardiopulmonary disease. Head MRI 08/03/22 14:44 IMPRESSION: 1. No evidence of restricted diffusion to suggest acute ischemia. 2. Minimal periventricular white matter changes. 3. No hemosiderin on the susceptibly weighted images. 4. Paranasal sinuses and mastoid air cells are well aerated. 5. No other suspicious findings. Laboratory Results WBC 4.3 10^3/uL (4.0-10.0) 08/03/22 11:00 RBC 4.31 10^6/uL (4.1-5.3) 08/03/22 11:00 Hgb 12.6 g/dL (11.5-15.3) 08/03/22 11:00 Hct 38.2 % (37.0-47.0) 08/03/22 11:00 MCV 88.6 fl (81-99) 08/03/22 11:00 MCH 29.2 pg (28.0-34.0) 08/03/22 11:00 MCHC 33.0 g/dL (30.0-36.0) 08/03/22 11:00 RDW 12.7 % (12.1-15.1) 08/03/22 11:00 Plt Count 209 10^3/cmm (130-400) 08/03/22 11:00 MPV 10.3 fL (7.4-10.4) 08/03/22 11:00 Neut % (Auto) 41.9 % 08/03/22 11:00 Lymph % (Auto) 49.0 % 08/03/22 11:00 Dawson % (Auto) 6.5 % 08/03/22 11:00 Eos % (Auto) 1.9 % 08/03/22 11:00 Baso % (Auto) 0.5 % 08/03/22 11:00 Neut # (Auto) 1.80 10^3/uL (1.8-7.7) 08/03/22 11:00 Lymph # (Auto) 2.1 10^3/uL (0.8-4.8) 08/03/22 11:00 Dawson # (Auto) 0.3 10^3/uL (0.2-0.9) 08/03/22 11:00 Eos # (Auto) 0.1 10^3/uL (0.0-0.8) 08/03/22 11:00 Baso # (Auto) 0.0 10^3/uL (0.0-0.1) 08/03/22 11:00 Nucleated RBC % (auto) 0 % 08/03/22 11:00 Nucleated RBCs # 0.0 /100WBC 08/03/22 11:00 ESR 3 mm/hr (0-15) 08/03/22 15:00 Sodium 141 mmol/L (136-145) 08/03/22 11:34 Potassium 3.7 mmol/L (3.5-5.1) 08/03/22 11:34 Chloride 109 mmol/L (98-107) H 08/03/22 11:34 Carbon Dioxide 20 mmol/L (22-29) L 08/03/22 11:34 Anion Gap 15.7 (5-19) 08/03/22 11:34 BUN 7 mg/dL (6-20) 08/03/22 11:34 Creatinine 0.7 mg/dL (0.5-0.9) 08/03/22 11:34 GFR Calculation 89.3 mL/min (90-130) L 08/03/22 11:34 Glucose 119 mg/dL (65-115) H 08/03/22 11:34 Calculated Osmolality 291 mOsm/kg (285-295) 08/03/22 11:34 Calcium 8.8 mg/dL (8.5-10.5) 08/03/22 11:34 Total Bilirubin 0.2 mg/dL (0.15-1.2) 08/03/22 11:34 AST 14 U/L (0-32) 08/03/22 11:34 ALT 13 U/L (0-33) 08/03/22 11:34 Alkaline Phosphatase 89 U/L (35-105) 08/03/22 11:34 Troponin T Baseline 6 ng/L (0-10) 08/03/22 20:05 Troponin T 120 Minute 6.66 ng/L (0-10) 08/03/22 22:10 Delta Troponin T 0.66 ABS# (0-10) 08/03/22 22:10 Troponin T Hi Sens 6Hr 6.00 ng/L (0-10) 08/04/22 01:53 Troponin T Hi Sens 6Hr Delta -0.66 ng/L (0-12) L 08/04/22 01:53 Total Protein 7.0 g/dL (6.6-8.7) 08/03/22 11:34 Albumin 4.1 g/dL (3.5-5.2) 08/03/22 11:34 Globulin 2.9 g/dL (1.3-4.6) 08/03/22 11:34 HCG, Qual Negative (Negative) 08/03/22 11:00 Urine Color Yellow (Yellow) 08/03/22 12:00 Urine Appearance Clear (CLEAR) 08/03/22 12:00 Urine pH 6.5 (5-7) 08/03/22 12:00 Ur Specific [place] 1.005 (1.005-1.030) 08/03/22 12:00 Urine Protein Neg (Negative) 08/03/22 12:00 Urine Glucose (UA) Norm (Normal) 08/03/22 12:00 Urine Ketones Negative (Negative) 08/03/22 12:00 Urine Blood Neg (Negative) 08/03/22 12:00 Urine Nitrate Negative (Negative) 08/03/22 12:00 Urine Bilirubin Neg (Negative) 08/03/22 12:00 Urine Urobilinogen Neg mg/dL (Negative) 08/03/22 12:00 Ur Leukocyte Esterase Negative (Negative) 08/03/22 12:00 Salicylates < 0.3 mg/dL (3-10) L 08/03/22 11:34 Urine Opiates Screen Negative ng/mL (Negative) 08/03/22 12:00 Acetaminophen < 5.0 ug/mL (10-30) L 08/03/22 11:34 Ur Barbiturates Screen Negative ng/mL (Negative) 08/03/22 12:00 Ur Phencyclidine Scrn Negative ng/mL (Negative) 08/03/22 12:00 Ur Amphetamines Screen Negative ng/mL (Negative) 08/03/22 12:00 U Benzodiazepines Scrn Negative ng/mL (Negative) 08/03/22 12:00 Urine Cocaine Screen Negative ng/mL (Negative) 08/03/22 12:00 U Marijuana (THC) Screen Negative ng/mL (Negative) 08/03/22 12:00 Ethyl Alcohol < 10 mg/dL (0-10) 08/03/22 11:34 Vitals Last Vital Signs Temp 98.9 F 08/04/22 12:00 Pulse 85 08/04/22 12:00 Resp 16 08/04/22 12:00 BP 118/77 08/04/22 12:00 Pulse Ox 96 08/04/22 12:00 O2 Del Method 08/04/22 07:59 Discharge Plan Discharge Patient Disposition: Home Condition: Stable Prescriptions: New topiramate 100 mg tablet 100 mg PO BEDTIME Qty: 30 0RF Rx Instructions: Total 150 mg topiramate 50 mg tablet 50 mg PO BEDTIME Qty: 30 0RF Rx Instructions: Total 150 mg gabapentin 300 mg capsule 900 mg PO BID Qty: 90 0RF Continued albuterol sulfate [Ventolin HFA] 90 mcg/actuation HFA aerosol inhaler 2 puff inhalation Q6H PRN (Reason: shortness of breath or wheezing) Qty: 8.5 0RF omeprazole 40 mg capsule,delayed release(DR/EC) See Rx Instructions .ROUTE .COMPLEX Qty: 30 0RF Dose Instruction: take 1 capsule BY MOUTH EVERY DAY Rx Instructions: take 1 capsule BY MOUTH EVERY DAY clonazepam 1 mg tablet 1 mg PO DAILY@0830 Qty: 30 0RF lamotrigine 200 mg tablet 400 mg PO DAILY oxcarbazepine 300 mg tablet 300 mg PO BID trazodone 100 mg tablet 200 mg PO BEDTIME ibuprofen [Advil] 200 mg Tablet 800 mg PO Q6H PRN (Reason: Pain) Discontinued gabapentin 300 mg capsule 1,200 mg PO BID topiramate 100 mg tablet 200 mg PO BEDTIME Discharge Orders: Discharge Order (Routine); Ordered 08/04/22 Ordered By: Augie Hoffmann Referrals: Goldie Montana MD [Physician] - 2 weeks (Migraines) Tarik Villasenor DO [Primary Care Provider] - 08/09/22 9:30 am Patient Instructions: Gabapentin (By mouth), Topiramate (By mouth), Vertigo (DC) Discharge Attestations Time Spent in Discharge Care*: greater than 30 min Quality Metrics Clinical Quality Measures [ No reported AMI, CVA or VTE this stay] Coding Level of Care Code Acute Code for Chg Fwd Diagnoses Ataxia R27.0 Chest pain R07.9
[2022-08-06 20:15] LABS: Oxcarbazepine Metabolite 13.1 mcg/mL (8.0-35.0)
[2022-08-10 09:05] LABS: Lamotrigine (Lamictal) Level 13.2 mcg/mL (4.0-18.0)
== END 2022-08-04 15:45 | disposition home or self-care (01) ==
LOC: ER 16:51 → MEDSURG 18:06
PROVIDERS: Admitting Provider Internal Medicine; Emergency Provider Physician Assistant; PCP Family Medicine; Visit Provider Internal Medicine
DX: R27.0 Ataxia, unspecified (principal); R07.9 Chest pain, unspecified; F31.9 Bipolar disorder, unspecified; Z87.891 Personal history of nicotine dependence
CPT/HCPCS: 36415; 70450; 70551; 71045; 80053; 80175; 80183; 80201; 80306; 80307; 81003; 84484; 84703; 85025; 85651; 93005; 96361; 96372; 96374; 96375; 96376; 99285; G0378; J0131; J2405; J2550; J7030; Q0169

== ENCOUNTER → 2022-09-18 16:25 | Outpatient (BNVA) | payer MEDICAID, SELFPAY | PROVIDERS: PCP Family Medicine; Visit Provider Registered Nurse Neonatal Intensive Care | DX: J02.9 Acute pharyngitis, unspecified (principal) | CPT/HCPCS: 87880 ==

== ENCOUNTER 2022-10-14 11:40 | Emergency (ER) | payer MEDICAID, SELFPAY ==
[2022-10-14 11:44] VITALS: BP 128/89; PULSE 106; RESP 16; TEMP 36.6; O2SAT 96
--- NOTE | 2022-10-14 12:37 | ED_ITS ---
HPI - Fall General: Chief Complaint: Fall Stated Complaint: fall/hit head/arm/back pain Time Seen by Provider: 10/14/22 11:41 Source: patient Mode of arrival: ambulatory Limitations: no limitations History of Present Illness: Patient is a 47-year-old female presents to ED today for evaluation following a fall. Patient states yesterday she was climbing a fence when she accidentally fell off and struck her head on a rock. She questions whether she lost consciousness or not but does not think so although feels like she may have been out of it for a few seconds. Patient states since the fall she has had a headache. She is also complaining of some left arm pain however seems to have full range of motion of this area. She states it does feel nerve like . She has no other injuries or complaints at this time. She has been ambulatory without difficulty or assistance. She does not complain of any neck or back pain. MD complaint: fall Onset (ago): day(s) (yesterday) Fall from: from height (distance) Fall witnessed: no Place fall occurred: home Loss of consciousness: Unsure Length of LOC: second(s) Prolonged down time: no Symptoms prior to fall: none Context: tripped/slipped Location of injury: head Associated symptoms-after fall: Reports headache(s); Denies abdominal pain, chest pain, hematuria, lightheadedness or neck pain Review of Systems Eyes: Denies: change in vision, blurry vision, photophobia, eye discharge, floaters or seeing flashes ENMT: Denies: throat pain, odynophagia, ear or mastoid pain, ear discharge, nasal discharge, epistaxis or sinus pain Card: Denies: chest pain, palpitations, lightheadedness, syncope or pre- syncope Resp: Denies: dyspnea or pain on inspiration GI: Denies: abdominal pain : Denies: flank pain or hematuria Musc: Reports: extremity pain; Denies: neck pain, back pain, extremity swelling, joint pain, joint swelling, joint redness, joint warmth, joint stiffness or limited range of motion Neuro: Reports: headache(s); Denies: numbness in extremities, weakness in extremities, sensory changes or dizziness [facility] ED PFSH: Medical History Bipolar disorder Migraines Osteonecrosis of hip Pharyngitis Psychiatric care URI (upper respiratory infection) Surgical History H/O shoulder surgery History of hip replacement, total History of surgery of head Hx of breast biopsy Family History Other Diabetes Hypertension Social History Smoking and tobacco status: former smoker Alcohol intake: never Substance/Drug Use: never Household members: children Marital status: Current occupational status: employed Physical Exam Const: COMMON NORMALS: no acute distress, average body habitus, patient oriented x3, no limitations, healthy appearing, alert and well nourished GENERAL APPEARANCE: cooperative ORIENTATION/CONSCIOUSNESS: Yes awake, Yes oriented to person, Yes oriented to place and Yes oriented to time HENMT: COMMON NORMALS: normocephalic, atraumatic and TM's normal bilaterally HEAD & SCALP: normal to inspection, normocephalic and atraumatic; no Leonard's sign, no hematoma and no raccoon eyes FACE & SINUS: normal facial exam TYMPANIC MEMBRANE: TM's normal bilaterally MOUTH: other (no intraoral injuries noted) Eye: COMMON NORMALS: Equal, round and reactive pupils present and EOMs intact bilaterally GENERAL EYE: appearance normal, both eyes and all related structures and normal light reflex PUPIL: Yes Equal, round and reactive pupils present DIRECT OPHTHALMOSCOPY: Yes normal light reflex Neck/C-Spine: COMMON NORMALS: full ROM GENERAL: Yes normal visual inspection CERVICAL SPINE: Yes cervical ROM normal, Yes pain with cervical ROM, Yes Cervical spine tenderness, No step off deformity and Yes Paracervical muscle tenderness OTHER: c collar placed at time of my initial exam Chest: COMMONS NORMALS: normal inspection of the chest and normal palpation of entire chest wall Resp: COMMON NORMALS: normal respiratory effort and clear to auscultation bilaterally AUSCULTATION: clear to auscultation bilaterally Cardio: COMMON NORMALS: regular rate and regular rhythm RATE: regular rate RHYTHM: regular rhythm GI: COMMON NORMALS: Normal to inspection, nondistended, normoactive bowel sounds present, Soft to palpation, non-tender, No hepatosplenomegaly present and no masses INSPECTION: Yes normal to inspection and No abdominal wall ecchymosis AUSCULTATION: Yes normoactive bowel sounds PALPATION: Yes Soft to palpation and Yes No hepatosplenomegaly present Back/Pelvis: COMMON NORMALS: thoracic and lumbar spine normal to inspection, no thoracic nor lumbar tenderness and thoraco-lumbar ROM normal Extremity: COMMON NORMALS: normal to inspection and full ROM GENERAL: Yes normal exam except as noted Neuro: NAVNEET COMA SCALE: document GCS findings Somers coma scale eye opening: Spontaneous Somers coma scale verbal response: Orientated Navneet coma scale motor response: Obey commands Somers coma scale total score: 15 COMMON NORMALS: patient oriented x3, CN's II-XII intact bilaterally, moves all extremities, no focal motor deficits, no sensory deficits noted and gait normal SENSORIUM/ORIENTATION: Yes alert, Yes oriented to person, Yes oriented to place and Yes oriented to time SPEECH: speech normal GAIT: Yes Normal gait present Skin: COMMON NORMALS: no rashes or lesions noted GENERAL SKIN EXAM: no rashes or lesions noted TRAUMA: no lacerations or abrasions Course Vital Signs: Vital signs: Vital Signs Temperature 97.9 F 10/14/22 11:44 Pulse Rate 106 H 10/14/22 11:44 Respiratory Rate 16 10/14/22 11:44 Blood Pressure 128/89 10/14/22 11:44 Pulse Oximetry 96 10/14/22 11:44 Oxygen Delivery Me thod Room Air 10/14/22 11:44 MDM - Fall Medical Decision Making Patient CT scans of her head and cervical spine are negative. She requested IV medication for her headache/migraine which was provided to her. At time of discharge she rates pain is very minimal and feels comfortable going home at this time. Recommend follow-up with primary care. Return ED precautions given. Lab Data Radiology Impressions Cervical Spine CT 10/14/22 12:55 IMPRESSION: No acute fracture. COMMENTS: Consistent with the [place]'s Incidental Findings Committee white paper (J Am Rohit Radiol 2015): In patients aged 35 years and older with an incidental thyroid nodule equal to or greater than 1.[address], MRI or extrathyroidal US, further evaluation with dedicated thyroid US is recommended for patients with normal life expectancy and without comorbidities. For smaller nodules without suspicious features, no further evaluation or follow up is recommended. Head CT 10/14/22 12:55 IMPRESSION: No evidence of acute intracranial abnormality. No acute hemorrhage. No evidence of acute infarct or mass. Discharge Plan Discharge Patient Disposition: Home Clinical Impression: Minor closed head injury Fall Qualifiers: Encounter type: initial encounter Qualified Code(s): W19.XXXA - Unspecified fall, initial encounter Condition: Stable Prescriptions: No Action gabapentin 300 mg capsule See Rx Instructions PO BID Qty: 210 2RF Rx Instructions: Take 4 tabs in the morning and 3 tabs at night. oxcarbazepine 300 mg tablet 300 mg PO BID Qty: 60 2RF lamotrigine 200 mg tablet 400 mg PO DAILY Qty: 60 2RF trazodone 100 mg tablet 200 mg PO BEDTIME Qty: 30 2RF topiramate 200 mg tablet 200 mg PO BEDTIME Qty: 30 5RF vitamin E 268 mg (400 unit) Capsule 268 mg PO DAILY Vitamin D3 25 mcg (1,000 unit) Capsule 25 mcg PO DAILY vitamin S24-cswdy acid 0.5-1 mg Tablet 1 tab PO DAILY Centrum Women 18-400 mg-mcg Tablet 1 tab PO DAILY Collagen 1500 Plus C 500 mg-800 mcg- 50 mg Capsule 1 cap PO DAILY omeprazole 40 mg capsule,delayed release(DR/EC) 40 mg PO DAILY lorazepam 2 mg tablet 2 mg PO QAM ibuprofen [Advil] 200 mg Tablet 800 mg PO Q6H PRN (Reason: Pain) Discharge Orders: Discharge ED (Routine); Ordered 10/14/22 Ordered By: Jenny Harrell Referrals: Tarik Villasenor DO [Primary Care Provider] - Patient Instructions: Headache - Migraine (Adult), Head Injury (DC), Acute Headache (DC) Coding Level of Care Code ED Head Of Training And Development for Flor Alejandro
--- NOTE | 2022-10-14 12:55 | CTR_ITS ---
PROCEDURE INFORMATION: Exam: CT Head Without Contrast Exam date and time: 10/14/2022 1:14 PM Age: 47 years old Clinical indication: Injury or trauma; Fall; Blunt trauma (contusions or hematomas); Additional info: Valderrama/trauma TECHNIQUE: Imaging protocol: Computed tomography of the head without contrast. Radiation optimization: All CT scans at this facility use at least one of these dose optimization techniques: automated exposure control; mA and/or kV adjustment per patient size (includes targeted exams where dose is matched to clinical indication); or iterative reconstruction. REPORTING DATA: Count of CT and Cardiac NM exams in prior 12 months: This patient has received 2 known CTs and 0 known cardiac nuclear medicine studies in the 12 months prior to the current study. COMPARISON: MR head wo con* [id number] 08/03/2022 3:22 PM RADIATION DOSE METRICS: Total DLP (mGy-cm): 1094.09 FINDINGS: Brain: There is no acute intracranial hemorrhage. No extra-axial fluid collection. No evidence of acute infarct. Alba white differentiation is intact. There is no evidence of mass. There is no mass effect or midline shift. Cerebral ventricles: No ventriculomegaly. Paranasal sinuses: Visualized sinuses are unremarkable. No fluid levels. Mastoid air cells: No significant mastoid effusion. Bones/joints: No acute fracture. Soft tissues: Two unchanged punctate right temporal scalp calcification. CT/CT head wo con* [id number] IMPRESSION: No evidence of acute intracranial abnormality. No acute hemorrhage. No evidence of acute infarct or mass.
--- NOTE | 2022-10-14 12:55 | CTR_ITS ---
PROCEDURE INFORMATION: Exam: CT Cervical Spine Without Contrast Exam date and time: 10/14/2022 1:14 PM Age: 47 years old Clinical indication: Injury or trauma; Fall; Blunt trauma; Additional info: Fall/neck pain; L arm pain TECHNIQUE: Imaging protocol: Computed tomography of the cervical spine without contrast. Radiation optimization: All CT scans at this facility use at least one of these dose optimization techniques: automated exposure control; mA and/or kV adjustment per patient size (includes targeted exams where dose is matched to clinical indication); or iterative reconstruction. REPORTING DATA: Count of CT and Cardiac NM exams in prior 12 months: This patient has received 2 known CTs and 0 known cardiac nuclear medicine studies in the 12 months prior to the current study. COMPARISON: MR head wo con* [id number] 08/03/2022 3:22 PM RADIATION DOSE METRICS: Total DLP (mGy-cm): 205.3 FINDINGS: Bones/joints: No acute fracture. Normal alignment. No significant disc bulge or herniation. No spinal canal stenosis. No significant neural foraminal narrowing. Facet degenerative changes noted at left C4-C5. Lungs: Lung apices are unremarkable for acute finding. Thyroid: Heterogeneous thyroid gland with small hyperdense nodules measuring up to 9 mm. No follow-up is recommended given nodule size. Soft tissues: Unremarkable. CT/CT cervical spin wo con* [id number] IMPRESSION: No acute fracture. COMMENTS: Consistent with the [employer]'s Incidental Findings Committee white paper (J Am Rohit Radiol 2015): In patients aged 35 years and older with an incidental thyroid nodule equal to or greater than 1.[address], MRI or extrathyroidal US, further evaluation with dedicated thyroid US is recommended for patients with normal life expectancy and without comorbidities. For smaller nodules without suspicious features, no further evaluation or follow up is recommended.
[2022-10-14] MEDS: acetaminophen 500 mg Tablet 1000 MG PO (13:35)
--- NOTE | 2022-10-14 13:36 | PC.NURSE ---
pt necklace was taken off in CT and given back to patient prior to coming back to room.
[2022-10-14] MEDS: ondansetron 2 mg/ML SDV 2 mL 4 MG IM (14:16)
[2022-10-14] MEDS: prochlorperazine 10 mg/2 mL Inj IVP (14:51)
[2022-10-14] MEDS: diphenhydrAMINE 50 mg/mL SDV 1mL IVP (14:51)
[2022-10-14] MEDS: dexamethasone 10 mg/mL INJ 8 MG IV (14:51)
== END 2022-10-14 16:42 | disposition home or self-care (01) ==
PROVIDERS: Emergency Provider Physician Assistant; PCP Family Medicine
DX: S09.8XXA Other specified injuries of head, initial encounter (principal); Z87.891 Personal history of nicotine dependence; W17.89XA Other fall from one level to another, initial encounter
CPT/HCPCS: 70450; 72125; 96372; 96374; 96375; 99285; J0780; J1100; J1200; J2405

== ENCOUNTER 2022-10-21 16:56 | Emergency (ER) | payer MEDICAID, SELFPAY ==
--- NOTE | 2022-10-21 16:59 | W.ED.HA ---
HPI - Headache General: Chief Complaint: General Medical Stated Complaint: swollen lymph nodes,migraine Time Seen by Provider: 10/21/22 16:59 History of Present Illness: Ms. Weinberg is a 47-year-old lady with history of bipolar and anxiety presenting to the emergency department for generalized illness as well as concern over lymphadenopathy and headache. She reports noticing left breast axillary lymphadenopathy approximately 1 month ago. Denies overlying skin changes or known history that would provoke this. She also notes left anterior point chest pain without associated shortness of breath or radiation. She has had a headache on the left frontal area of her head, she does have a history of migraines however this feels more like a normal headache and less severe than typical. She has felt out of energy and rundown. Overall course of symptoms has worsened. No other specific changes in health, exacerbating, or alleviating factors identified. Onset (ago): week(s) Quality & Timing: aching Exacerbating factors: none Relieving factors: nothing Associated symptoms: Reports other Review of Systems General: Reports: 10 or more systems reviewed and unremarkable except in HPI and below PFSH ED PFSH: Medical History Bipolar disorder Migraines Osteonecrosis of hip Pharyngitis Psychiatric care URI (upper respiratory infection) Surgical History H/O shoulder surgery History of hip replacement, total History of surgery of head Hx of breast biopsy Family History Other Diabetes Hypertension Social History Smoking and tobacco status: former smoker Alcohol intake: never Substance/Drug Use: never Household members: children Marital status: Current occupational status: employed Physical Exam Const: COMMON NORMALS: patient oriented x3 and alert GENERAL APPEARANCE: cooperative and well developed HENMT: COMMON NORMALS: normocephalic and atraumatic HEAD & SCALP: normocephalic and atraumatic Eye: COMMON NORMALS: conjunctivae normal CONJUNCTIVA: Yes conjunctivae normal SCLERA: sclerae normal Neck/C-Spine: COMMON NORMALS: supple GENERAL: Yes trachea midline Lymph: OTHER: Performed with manuscripts archivist present. Left axillary tenderness without palpable mass appreciated. Resp: COMMON NORMALS: normal respiratory effort EFFORT & INSPECTION: Yes able to speak in complete sentences Cardio: COMMON NORMALS: regular rate and regular rhythm RATE: regular rate RHYTHM: regular rhythm GI: COMMON NORMALS: Soft to palpation PALPATION: Yes Soft to palpation and No Tenderness to palpation present (GI) PERCUSSION: normal to percussion Extremity: GENERAL: Yes normal exam except as noted and No edema Neuro: COMMON NORMALS: patient oriented x3, CN's II-XII intact bilaterally, moves all extremities, no focal motor deficits and no sensory deficits noted SENSORIUM/ORIENTATION: Yes alert and No Orientation impaired Psych: COMMON NORMALS: mental status grossly normal and Normal thought process present THOUGHT PROCESS: Normal thought process present Course Vital Signs: Vital signs: Vital Signs Temperature 97.6 F 10/21/22 17:04 Pulse Rate 74 10/21/22 20:05 Respiratory Rate 16 10/21/22 20:05 Blood Pressure 143/93 10/21/22 20:05 Pulse Oximetry 100 10/21/22 20:05 Oxygen Delivery Me thod Room Air 10/21/22 20:05 MDM - Headache Medical Decision Making 47-year-old lady presenting the emergency department for multiple concerns. She is concerned about a possible palpable breast mass and axillary lymphadenopathy as well as headache. No focal neurologic deficits. No meningismus. Patient is nontoxic. EKG demonstrates sinus rhythm with nonspecific ST segment abnormalities, normal axis and intervals, no STEMI. No significant hematologic or metabolic abnormalities to explain symptoms. No evidence of urinary tract infection given squamous epithelial contamination. COVID is negative. Chest x-ray with no lobar consolidation or pneumothorax. Recent prior imaging reviewed. Ultrasound negative for obvious abnormality correlating with patient's symptoms in the left axilla. Need for further evaluation with dedicated breast imaging discussed with patient. Exact etiology of patient's symptoms is unclear, perhaps viral in nature, generalized malaise and illness. Improved with headache cocktail and IV fluids. The results of ED evaluation were discussed with the patient including prescriptions and/or symptomatic cares (if applicable) including appropriate and responsible use, followup plan, and return precautions. The patient verbalized understanding and felt safe for discharge. Medical Records I reviewed the patient's medical records. Lab Data I reviewed the patient's lab results. 10/21/22 17:55 10/21/22 17:55 Radiology Impressions Chest X-Ray 10/21/22 17:12 IMPRESSION: No acute findings. Soft Tissue Ultrasound 10/21/22 17:31 IMPRESSION: No abnormality identified in the left axilla. Follow-up at a dedicated breast Center is recommended. Laboratory Results WBC 5.7 10^3/uL (4.0-10.0) 10/21/22 17:55 RBC 3.94 10^6/uL (4.1-5.3) L 10/21/22 17:55 Hgb 11.5 g/dL (11.5-15.3) 10/21/22 17:55 Hct 34.9 % (37.0-47.0) L 10/21/22 17:55 MCV 88.6 fl (81-99) 10/21/22 17:55 MCH 29.2 pg (28.0-34.0) 10/21/22 17:55 MCHC 33.0 g/dL (30.0-36.0) 10/21/22 17:55 RDW 12.8 % (12.1-15.1) 10/21/22 17:55 Plt Count 213 10^3/cmm (130-400) 10/21/22 17:55 MPV 10.2 fL (7.4-10.4) 10/21/22 17:55 Neut % (Auto) 27.6 % 10/21/22 17:55 Lymph % (Auto) 60.7 % 10/21/22 17:55 [place] % (Auto) 8.7 % 10/21/22 17:55 Eos % (Auto) 2.1 % 10/21/22 17:55 Baso % (Auto) 0.7 % 10/21/22 17:55 Neut # (Auto) 1.58 10^3/uL (1.8-7.7) L 10/21/22 17:55 Lymph # (Auto) 3.5 10^3/uL (0.8-4.8) 10/21/22 17:55 [place] # (Auto) 0.5 10^3/uL (0.2-0.9) 10/21/22 17:55 Eos # (Auto) 0.1 10^3/uL (0.0-0.8) 10/21/22 17:55 Baso # (Auto) 0.0 10^3/uL (0.0-0.1) 10/21/22 17:55 Nucleated RBC % (auto) 0 % 10/21/22 17:55 Nucleated RBCs # 0.0 /100WBC 10/21/22 17:55 Sodium 137 mmol/L (136-145) 10/21/22 17:55 Potassium 3.7 mmol/L (3.5-5.1) 10/21/22 17:55 Chloride 104 mmol/L (98-107) 10/21/22 17:55 Carbon Dioxide 20 mmol/L (22-29) L 10/21/22 17:55 Anion Gap 16.7 (5-19) 10/21/22 17:55 BUN 14 mg/dL (6-20) 10/21/22 17:55 Creatinine 0.8 mg/dL (0.5-0.9) 10/21/22 17:55 GFR Calculation 76.6 mL/min (90-130) L 10/21/22 17:55 Glucose 109 mg/dL (65-115) 10/21/22 17:55 Calculated Osmolality 285 mOsm/kg (285-295) 10/21/22 17:55 Calcium 8.6 mg/dL (8.5-10.5) 10/21/22 17:55 Total Bilirubin 0.2 mg/dL (0.15-1.2) 10/21/22 17:55 AST 15 U/L (0-32) 10/21/22 17:55 ALT 13 U/L (0-33) 10/21/22 17:55 Alkaline Phosphatase 78 U/L (35-105) 10/21/22 17:55 Total Protein 7.3 g/dL (6.6-8.7) 10/21/22 17:55 Albumin 4.5 g/dL (3.5-5.2) 10/21/22 17:55 Globulin 2.8 g/dL (1.3-4.6) 10/21/22 17:55 TSH 0.57 uIU/mL (0.27-4.20) 10/21/22 17:55 Urine Color Yellow (Yellow) 10/21/22 18:03 Urine Appearance Clear (CLEAR) 10/21/22 18:03 Urine pH 6.5 (5-7) 10/21/22 18:03 Ur Specific [place] 1.020 (1.005-1.030) 10/21/22 18:03 Urine Protein Neg (Negative) 10/21/22 18:03 Urine Glucose (UA) Norm (Normal) 10/21/22 18:03 Urine Ketones Negative (Negative) 10/21/22 18:03 Urine Blood Neg (Negative) 10/21/22 18:03 Urine Nitrate Negative (Negative) 10/21/22 18:03 Urine Bilirubin Neg (Negative) 10/21/22 18:03 Urine Urobilinogen Norm mg/dL (Negative) 10/21/22 18:03 Ur Leukocyte Esterase Trace (Negative) H 10/21/22 18:03 Urine RBC 0-4 /hpf (0-2) H 10/21/22 18:03 Urine WBC 0-4 /hpf (0-5) H 10/21/22 18:03 Ur Squamous Epith Cells 15-25 /hpf (0-5) H 10/21/22 18:03 Amorphous Sediment Not Reportable 10/21/22 18:03 Urine Bacteria 3+ /hpf (NONE) H 10/21/22 18:03 SARS-CoV-2 Ag (Rapid) negative 10/21/22 18:44 Discharge Plan Discharge Patient Disposition: Home Clinical Impression: Headache, Malaise and fatigue Condition: Stable Prescriptions: No Action gabapentin 300 mg capsule See Rx Instructions PO BID Qty: 210 2RF Rx Instructions: Take 4 tabs in the morning and 3 tabs at night. oxcarbazepine 300 mg tablet 300 mg PO BID Qty: 60 2RF lamotrigine 200 mg tablet 400 mg PO DAILY Qty: 60 2RF trazodone 100 mg tablet 200 mg PO BEDTIME Qty: 30 2RF clonazepam 0.5 mg tablet 0.5 mg PO .q am Qty: 30 0RF Rx Instructions: Take one tablet by mouth every morning; discontinue lorazepam topiramate 200 mg tablet 200 mg PO BEDTIME Qty: 30 5RF omeprazole 40 mg capsule,delayed release(DR/EC) 40 mg PO DAILY Qty: 90 3RF vitamin E 268 mg (400 unit) Capsule 268 mg PO DAILY Vitamin D3 25 mcg (1,000 unit) Capsule 25 mcg PO DAILY vitamin K18-lxwnx acid 0.5-1 mg Tablet 1 tab PO DAILY Centrum Women 18-400 mg-mcg Tablet 1 tab PO DAILY Collagen 1500 Plus C 500 mg-800 mcg- 50 mg Capsule 1 cap PO DAILY ibuprofen [Advil] 200 mg Tablet 800 mg PO Q6H PRN (Reason: Pain) Discharge Orders: Discharge ED (Routine); Ordered 10/21/22 Ordered By: Pedro Luis Roberts Referrals: Tarik Villasenor, [Primary Care Provider] - Discharge Diet: Usual diet Discharge Activity: Increase activity as tolerated Patient Instructions: Lymphadenopathy (ED), Acute Headache (ED), Weakness (ED), Fatigue (ED) Activity Restrictions/Additional Instructions: Thank you for visiting the emergency department. You were seen and evaluated for generalized illness. The exact cause your symptoms is unclear though does not appear to need hospitalization at this time. As discussed you do require further outpatient testing which can be arranged by your primary care provider. Specifically the ultrasound performed is not a substitute for mammogram and given that you are feeling possible lumps I would recommend mammogram for further assessment. Please ensure that you are staying hydrated. Return to the emergency department for anything that you are concerned about and feel needs emergency department evaluation. Coding Level of Care Code ED Public Health Technician for Flor Alejandro
[2022-10-21 17:04] VITALS: BP 145/100; PULSE 82; RESP 17; TEMP 36.4; O2SAT 97
--- NOTE | 2022-10-21 17:12 | XRR_ITS ---
PROCEDURE INFORMATION: Exam: XR Chest Exam date and time: 10/21/2022 5:28 PM Age: 47 years old Clinical indication: Pain; Chest pressure; Additional info: L ant chest pain TECHNIQUE: Imaging protocol: Radiologic exam of the chest. Views: 1 view. COMPARISON: CR XR chest 1V portable [id number] 08/03/2022 10:23 AM FINDINGS: Lungs: Unremarkable. No consolidation. Pleural spaces: Unremarkable. No pleural effusion. No pneumothorax. Heart/Mediastinum: Unremarkable. No cardiomegaly. Bones/joints: Right shoulder arthroplasty. XR/XR chest 1V portable [id number] IMPRESSION: No acute findings.
--- NOTE | 2022-10-21 17:13 | ECG_ITS ---
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 Measurements Intervals [place] Rate: 84 P: 38 MI: 139 QRS: 35 QRSD: 89 T: 10 QT: 355 QTc: 421 Interpretive Statements SINUS RHYTHM NONSPECIFIC ST & T-WAVE ABNORMALITY Compared to ECG 08/04/2022 00:51:14 No significant changes Electronically Signed On 10-21-2022 20:24:10 CDT by Mario Noonan M.D. [id number]
--- NOTE | 2022-10-21 17:31 | USR_ITS ---
PROCEDURE INFORMATION: Exam: US Left Non-Vascular Joint or Other Extremity Structure Exam date and time: 10/21/2022 5:49 PM Age: 47 years old Clinical indication: Pain; Upper arm; Left; Additional info: L axilla pain, eval lymphadenopathy TECHNIQUE: Imaging protocol: Left US joint or other nonvascular extremity structure or structures. Real-time ultrasound with image documentation. Limited study. Exam focused on the upper extremity in the region of clinical interest. COMPARISON: CT cervical spin wo con* [id number] 10/14/2022 1:14 PM FINDINGS: Soft tissues: Survey of the left axilla is unremarkable. No mass or lymph node visualized. US/US soft tissue/extremity [id number] IMPRESSION: No abnormality identified in the left axilla. Follow-up at a dedicated breast Center is recommended.
[2022-10-21 18:11] LABS: Basophils % 0.7 %; Eosinophils # 0.1 10^3/uL (0.0-0.8); Eosinophils % 2.1 %; Hematocrit 34.9 % (37.0-47.0); Hemoglobin 11.5 g/dL (11.5-15.3); Lymphocytes # 3.5 10^3/uL (0.8-4.8); Lymphocytes % 60.7 %; Mean Corpuscular Hemoglobin 29.2 pg (28.0-34.0); Mean Corpuscular Volume 88.6 fl (81-99); Mean Platelet Volume 10.2 fL (7.4-10.4); Monocytes # 0.5 10^3/uL (0.2-0.9); Monocytes % 8.7 %; Neutrophils # 1.58 10^3/uL (1.8-7.7); Neutrophils % 27.6 %; Nucleated Red Blood Cells % 0 %; Platelet Count 213 10^3/cmm (130-400); Red Blood Count 3.94 10^6/uL (4.1-5.3); Red Cell Distribution Width 12.8 % (12.1-15.1); White Blood Count 5.7 10^3/uL (4.0-10.0)
[2022-10-21] MEDS: acetaminophen 500 mg Tablet 1000 MG PO (18:16)
[2022-10-21 18:23] LABS: Urine Appearance Clear (CLEAR); Urine Color Yellow (Yellow); pH Urine 6.5 (5-7)
[2022-10-21 18:24] LABS: Add Urine Microscopic? YES; Bilirubin Urine Neg (Negative); Blood Urine Neg (Negative); Glucose Urine UA Norm (Normal); Ketones Urine Negative (Negative); Leukocyte Esterase Urine Trace (Negative); Nitrate Urine Negative (Negative); Protein Urine Neg (Negative); Urobilinogen Urine Norm (Negative)
[2022-10-21 18:26] LABS: Bacteria Urine 3+ /hpf; RBC Urine 0-4 /hpf (0-2); Squamous Epithelial Cell Urine 15-25 /hpf (0-5); WBC Urine 0-4 /hpf (0-5)
[2022-10-21] MEDS: lactated ringers 1,000 ML 999 ML IV (18:35)
[2022-10-21] MEDS: diphenhydrAMINE 50 mg/mL SDV 1mL 12.5 MG IVP (18:36)
[2022-10-21 18:39] LABS: Alanine Aminotransferase 13 U/L (0-33); Albumin Level 4.5 g/dL (3.5-5.2); Alkaline Phosphatase 78 U/L (35-105); Anion Gap 16.7 (5-19); Aspartate Amino Transferase 15 U/L (0-32); Blood Urea Nitrogen 14 mg/dL (6-20); Calcium 8.6 mg/dL (8.5-10.5); Carbon Dioxide 20 mmol/L (22-29); Chloride 104 mmol/L (98-107); Globulin 2.8 g/dL (1.3-4.6); Glomerular Filtration Rate 76.6 mL/min (90-130); Glucose 109 mg/dL (65-115); Osmolality Calculated 285 mOsm/kg (285-295); Potassium 3.7 mmol/L (3.5-5.1); Sodium 137 mmol/L (136-145); Thyroid Stimulating Hormone 0.57 uIU/mL (0.27-4.20); Total Bilirubin 0.2 mg/dL (0.15-1.2); Total Protein 7.3 g/dL (6.6-8.7)
[2022-10-21 18:45] VITALS: BP 132/90; PULSE 72; RESP 16; O2SAT 99
[2022-10-21 19:05] LABS: SARS Covid-2 Antigen negative
[2022-10-21 20:05] VITALS: BP 143/93; PULSE 74; RESP 16; O2SAT 100
--- NOTE | 2022-10-21 20:29 | PC.NURSE ---
PTS LINE INFILTRATED AND ARM IS SWOLLEN. DR. ERVIN WAS NOTIFIED WITH NO FURTHER ORDERS
== END 2022-10-21 20:31 | disposition home or self-care (01) ==
PROVIDERS: Emergency Provider Emergency Medicine; PCP Family Medicine
DX: R51.9 Headache, unspecified (principal); R53.81 Other malaise; R53.83 Other fatigue; R59.1 Generalized enlarged lymph nodes
CPT/HCPCS: 71045; 76882; 80053; 81001; 84443; 85025; 87426; 93005; 96361; 96374; 99285; J1200; J3475; J7120

== ENCOUNTER → 2022-11-17 11:17 | Outpatient (BNVA) | payer MEDICAID, SELFPAY | PROVIDERS: PCP Family Medicine; Visit Provider Nurse Practitioner Family | DX: J06.9 Acute upper respiratory infection, unspecified (principal) | CPT/HCPCS: 87071; 87880 ==

== ENCOUNTER 2022-12-27 12:45 | Emergency (ER) | payer MEDICAID, SELFPAY ==
[2022-12-27 12:53] VITALS: BMI 24.3
[2022-12-27 12:56] VITALS: BP 130/95; PULSE 87; RESP 16; TEMP 36.7; O2SAT 98
--- NOTE | 2022-12-27 15:21 | CTR_ITS ---
PROCEDURE INFORMATION: Exam: CT Abdomen And Pelvis With Contrast Exam date and time: 12/27/2022 4:53 PM Age: 47 years old Clinical indication: Abdominal tenderness; Prior surgery; Surgery date: 6+ months; Surgery type: Hernia repair, hyst; Additional info: Upper abdominal tenderness, nausea and vomiting, history of pancreatitis TECHNIQUE: Imaging protocol: Computed tomography of the abdomen and pelvis with contrast. Radiation optimization: All CT scans at this facility use at least one of these dose optimization techniques: automated exposure control; mA and/or kV adjustment per patient size (includes targeted exams where dose is matched to clinical indication); or iterative reconstruction. Contrast material: OMNI 350; Contrast volume: 100 ml; Contrast route: INTRAVENOUS (IV); REPORTING DATA: Count of CT and Cardiac NM exams in prior 12 months: This patient has received 4 known CTs and 0 known cardiac nuclear medicine studies in the 12 months prior to the current study. COMPARISON: CT abdomen pelvis wo con [id number] 05/25/2022 7:47 AM RADIATION DOSE METRICS: Total DLP (mGy-cm): 551.88 FINDINGS: Lungs: Bibasilar atelectasis. Liver: Hepatic steatosis. Gallbladder and bile ducts: Normal. No calcified stones. No ductal dilation. Pancreas: Normal. No ductal dilation. Spleen: Splenic cyst. Adrenal glands: Normal. No mass. Kidneys and ureters: Bilateral renal cysts, negative for follow-up advised. Left kidney punctate nonobstructing calyceal stone. Stomach and bowel: Prominent fluid in the small bowel without dilation suggestive of an enteritis. Constipation. Appendix: No evidence of appendicitis. Intraperitoneal space: Unremarkable. No free air. No significant fluid collection. Vasculature: Unremarkable. No abdominal aortic aneurysm. Lymph nodes: Unremarkable. No enlarged lymph nodes. Urinary bladder: Unremarkable as visualized. Reproductive: Unremarkable as visualized. Bones/joints: Right hip arthroplasty changes. Soft tissues: Unremarkable. CT/CT abdomen pelvis w con* [id number] IMPRESSION: 1. Prominent fluid in the small bowel without dilation suggestive of an enteritis. 2. Right hip arthroplasty changes. 3. Bilateral renal cysts, negative for follow-up advised. 4. Bibasilar atelectasis. 5. Hepatic steatosis. 6. Splenic cyst. 7. Constipation. 8. Left kidney punctate nonobstructing calyceal stone. COMMENTS: Consistent with the [employer]'s Incidental Findings Committee white paper (J Am Rohit Radiol 2018): Any incidental renal lesion less than 1 cm or classified as too small to characterize, or any incidental cystic renal lesion characterized as simple-appearing, is likely benign. No follow-up imaging is recommended for these lesions per consensus recommendations based on imaging criteria.
--- NOTE | 2022-12-27 15:23 | ED_ITS ---
Documented by User: [email or web address] Saha 12/27/22 16:58 HPI - Abdominal Pain General: Chief Complaint: Abdominal Pain Stated Complaint: can't eat or drink, abd pain Time Seen by Provider: 12/27/22 15:00 History of Present Illness: Patient is a 47-year-old female comes to the ED with abdominal pain, nausea and vomiting. Past medical history of pancreatitis, hysterectomy and hernia surgery. symptoms started approximately 4 days ago. Abdominal pain is located in the upper abdomen bilaterally. Pain radiates to her back. She rates the pain currently a 9 out of 10. She is having trouble keeping any food or fluids down. Whenever she tries to drink or eat anything she gets more nauseous and her abdominal pain worsens. Denies any fevers. Associated Symptoms: Reports nausea and vomiting; Denies chills, constipation, diarrhea, dysuria, fever(s), hematochezia and hematuria Review of Systems Const: Denies: fever(s), chills or fatigue Eyes: Denies: change in vision or eye discomfort ENMT: Denies: throat pain, odynophagia, nasal discharge or nasal congestion Card: Denies: chest pain, palpitations, edema, swelling of feet/ankles, dyspnea on exertion or orthopnea Resp: Denies: dyspnea, productive cough or non-productive cough GI: Reports: abdominal pain, nausea and vomiting; Denies: diarrhea, constipation or hematochezia : Denies: flank pain, dysuria or hematuria Musc: Denies: neck pain, back pain or extremity swelling Skin/Breast: Denies: rash or new lesions Neuro: Denies: headache(s), numbness in extremities or weakness in extremities [facility] ED PFSH: Medical History Bipolar disorder Migraines Osteonecrosis of hip Pharyngitis Psychiatric care URI (upper respiratory infection) Surgical History H/O shoulder surgery History of hip replacement, total History of surgery of head Hx of breast biopsy Family History Other Diabetes Hypertension Social History Smoking and tobacco status: former smoker Alcohol intake: never Substance/Drug Use: never Household members: children Marital status: Current occupational status: employed Physical Exam Const: COMMON NORMALS: patient oriented x3 and alert HENMT: COMMON NORMALS: normocephalic HEAD & SCALP: normocephalic MOUTH: Normal oral and palatal mucosa present THROAT: posterior oropharynx normal and uvula midline Neck/C-Spine: COMMON NORMALS: supple GENERAL: Yes normal visual inspection Resp: COMMON NORMALS: normal respiratory effort, No retractions, No use of accessory muscles and clear to auscultation bilaterally AUSCULTATION: clear to auscultation bilaterally Cardio: COMMON NORMALS: regular rate, regular rhythm, S1 normal heart sound present, S2 normal heart sound present, No gallops present (Cardio), No clicks present (Cardio), No murmurs present (Cardio) and Peripheral pulses 2+ throughout RATE: regular rate RHYTHM: regular rhythm HEART SOUNDS: S1 normal heart sound present and S2 normal heart sound present PERIPHERAL PULSES: Peripheral pulses 2+ throughout GI: COMMON NORMALS: Normal to inspection, nondistended, normoactive bowel sounds present, Soft to palpation and no masses PALPATION: Yes Soft to palpation and Yes Tenderness to palpation present (GI) Details: LUQ and RUQ : COMMON NORMALS: Yes no CVA tenderness BLADDER/KIDNEY EXAM: Yes no CVA tenderness Back/Pelvis: COMMON NORMALS: no CVA tenderness Neuro: COMMON NORMALS: patient oriented x3 SENSORIUM/ORIENTATION: Yes alert GAIT: Yes Normal gait present Skin: GENERAL SKIN EXAM: dry skin Course Vital Signs: Vital signs: Vital Signs Temperature 98.1 F 12/27/22 12:56 Pulse Rate 87 12/27/22 12:56 Respiratory Rate 16 12/27/22 12:56 Blood Pressure 130/95 12/27/22 12:56 Pulse Oximetry 98 12/27/22 12:56 Oxygen Delivery Me thod Room Air 12/27/22 12:56 MDM - Abdominal Pain Medical Decision Making Patient is a 47-year-old female comes to the ED with abdominal pain, nausea and vomiting. Past medical history of pancreatitis, hysterectomy and hernia surgery. symptoms started approximately 4 days ago. Abdominal pain is located in the upper abdomen bilaterally. Pain radiates to her back. She rates the pain currently a 9 out of 10. She is having trouble keeping any food or fluids down. Whenever she tries to drink or eat anything she gets more nauseous and her abdominal pain worsens. Denies any fevers. Vitals are stable. CBC and CMP are unremarkable. Lipase is normal at 42. UA is unremarkable. Nurse was struggling to get an IV on patient. Pending IV fluids, pain meds and nausea meds and CT abdomen pelvis results. Patient given DC home if CT is normal and she is able to tolerate p.o. fluids after meds. Lab Data I reviewed the patient's lab results. 12/27/22 15:24 12/27/22 15:24 Labs/Radiology: Radiology Impressions Abdomen/Pelvis CT 12/27/22 15:21 IMPRESSION: 1. Prominent fluid in the small bowel without dilation suggestive of an enteritis. 2. Right hip arthroplasty changes. 3. Bilateral renal cysts, negative for follow-up advised. 4. Bibasilar atelectasis. 5. Hepatic steatosis. 6. Splenic cyst. 7. Constipation. 8. Left kidney punctate nonobstructing calyceal stone. COMMENTS: Consistent with the [employer]'s Incidental Findings Committee white paper (J Am Rohit Radiol 2018): Any incidental renal lesion less than 1 cm or classified as too small to characterize, or any incidental cystic renal lesion characterized as simple-appearing, is likely benign. No follow-up imaging is recommended for these lesions per consensus recommendations based on imaging criteria. Laboratory Results WBC 5.7 10^3/uL (4.0-10.0) 12/27/22 15:24 RBC 4.27 10^6/uL (4.1-5.3) 12/27/22 15:24 Hgb 12.6 g/dL (11.5-15.3) 12/27/22 15:24 Hct 37.1 % (37.0-47.0) 12/27/22 15:24 MCV 86.9 fl (81-99) 12/27/22 15:24 MCH 29.5 pg (28.0-34.0) 12/27/22 15:24 MCHC 34.0 g/dL (30.0-36.0) 12/27/22 15:24 RDW 12.6 % (12.1-15.1) 12/27/22 15:24 Plt Count 200 10^3/cmm (130-400) 12/27/22 15:24 MPV 9.6 fL (7.4-10.4) 12/27/22 15:24 Neut % (Auto) 39.6 % 12/27/22 15:24 Lymph % (Auto) 51.0 % 12/27/22 15:24 Maverick % (Auto) 7.3 % 12/27/22 15:24 Eos % (Auto) 1.4 % 12/27/22 15:24 Baso % (Auto) 0.5 % 12/27/22 15:24 Neut # (Auto) 2.27 10^3/uL (1.8-7.7) 12/27/22 15:24 Lymph # (Auto) 2.9 10^3/uL (0.8-4.8) 12/27/22 15:24 Maverick # (Auto) 0.4 10^3/uL (0.2-0.9) 12/27/22 15:24 Eos # (Auto) 0.1 10^3/uL (0.0-0.8) 12/27/22 15:24 Baso # (Auto) 0.0 10^3/uL (0.0-0.1) 12/27/22 15:24 Nucleated RBC % (auto) 0 % 12/27/22 15: Nucleated RBCs # 0.0 /100WBC 12/27/22 15:24 Sodium 138 mmol/L (136-145) 12/27/22 15:24 Potassium 4.1 mmol/L (3.5-5.1) 12/27/22 15:24 Chloride 105 mmol/L (98-107) 12/27/22 15:24 Carbon Dioxide 22 mmol/L (22-29) 12/27/22 15:24 Anion Gap 15.1 (5-19) 12/27/22 15:24 BUN 9 mg/dL (6-20) 12/27/22 15:24 Creatinine 0.8 mg/dL (0.5-0.9) 12/27/22 15:24 GFR Calculation 76.6 mL/min (90-130) L 12/27/22 15:24 Glucose 100 mg/dL (65-115) 12/27/22 15:24 Calculated Osmolality 285 mOsm/kg (285-295) 12/27/22 15:24 Calcium 9.5 mg/dL (8.5-10.5) 12/27/22 15:24 Total Bilirubin 0.3 mg/dL (0.15-1.2) 12/27/22 15:24 AST 12 U/L (0-32) 12/27/22 15:24 ALT 12 U/L (0-33) 12/27/22 15:24 Alkaline Phosphatase 101 U/L (35-105) 12/27/22 15:24 Total Protein 7.3 g/dL (6.6-8.7) 12/27/22 15:24 Albumin 4.7 g/dL (3.5-5.2) 12/27/22 15:24 Globulin 2.6 g/dL (1.3-4.6) 12/27/22 15:24 Lipase 42 U/L (13-60) 12/27/22 15:24 HCG, Qual Negative (Negative) 12/27/22 15:24 Urine Color Yellow (Yellow) 12/27/22 15:34 Urine Appearance Clear (CLEAR) 12/27/22 15:34 Urine pH 6 (5-7) 12/27/22 15:34 Ur Specific [place] 1.010 (1.005-1.030) 12/27/22 15:34 Urine Protein Neg (Negative) 12/27/22 15:34 Urine Glucose (UA) Norm (Normal) 12/27/22 15:34 Urine Ketones Negative (Negative) 12/27/22 15:34 Urine Blood Neg (Negative) 12/27/22 15:34 Urine Nitrate Negative (Negative) 12/27/22 15:34 Urine Bilirubin Neg (Negative) 12/27/22 15:34 Urine Urobilinogen Norm mg/dL (Negative) 12/27/22 15:34 Ur Leukocyte Esterase Negative (Negative) 12/27/22 15:34 Discharge Plan Discharge Patient Disposition: Home Clinical Impression: Enteritis Condition: Stable Prescriptions: New hydrocodone-acetaminophen 5-325 mg tablet 1 tab PO Q8H PRN (Reason: pain) Qty: 6 0RF ondansetron 4 mg tablet,disintegrating 4 mg PO Q8H PRN (Reason: nausea and vomiting) Qty: 6 0RF No Action oxcarbazepine 300 mg tablet 300 mg PO BID Qty: 60 1RF Rx Instructions: Take one tablet by mouth morning and at night trazodone 100 mg tablet 200 mg PO BEDTIME Qty: 60 1RF Rx Instructions: Take two tablets by mouth at bedtime clonazepam [Klonopin] 0.5 mg tablet 0.5 mg PO DAILY 30 Days Qty: 30 1RF Rx Instructions: Take one tablet every morning topiramate 200 mg tablet 200 mg PO BEDTIME Qty: 30 5RF gabapentin 300 mg capsule See Rx Instructions .ROUTE .COMPLEX Qty: 210 2RF Dose Instruction: Take 4 capsules BY MOUTH EVERY MORNING AND THREE AT NIGHT Rx Instructions: Take 4 capsules BY MOUTH EVERY MORNING AND THREE AT NIGHT vitamin E 268 mg (400 unit) Capsule 268 mg PO DAILY cholecalciferol (vitamin D3) [Vitamin D3] 25 mcg (1,000 unit) Capsule 25 mcg PO DAILY vitamin D59-oozim acid 0.5-1 mg Tablet 1 tab PO DAILY Centrum Women 18-400 mg-mcg Tablet 1 tab PO DAILY Collagen 1500 Plus C 500 mg-800 mcg- 50 mg Capsule 1 cap PO DAILY ibuprofen [Advil] 200 mg Tablet 800 mg PO Q6H PRN (Reason: Pain) lamotrigine 200 mg tablet 400 mg PO BEDTIME Rx Instructions: Take two tablets daily at bedtime omeprazole 40 mg capsule,delayed release(DR/EC) 40 mg PO DAILY Discharge Orders: Discharge ED (Routine); Ordered 12/27/22 Ordered By: Brandyn Galeas Referrals: Tarik Villasenor DO [Primary Care Provider] - Discharge Diet: Advance as tolerated Discharge Activity: Increase activity as tolerated Patient Instructions: Gastroenteritis (ED), Opioid Safety Activity Restrictions/Additional Instructions: Drink plenty of water and fluids. Use ondansetron 1 tablet every 8 hours to help with nausea and vomiting. Use hydrocodone for severe pain. Use routine medications as directed. Take frequent sips of fluids to maintain hydration. Follow-up with primary care in 2 days for recheck. Return to ED for new concerns or worsening symptoms such as fever greater than 100.4, blood in vomit or stool. Sign Out Sign Out Data: Patient Sign Out occurred on 12/27/22 at 17:03. Patient's care was discussed, and care was transferred from to Brandyn Galeas. Coding Level of Care Code ED Meter Repairer Helper for Chg Fwd Documented by User: [email or web address] Leavitt 12/27/22 17:49 HPI - Abdominal Pain General: Chief Complaint: Abdominal Pain Stated Complaint: can't eat or drink, abd pain Time Seen by Provider: 12/27/22 15:00 PFSH ED PFSH: Medical History Bipolar disorder Migraines Osteonecrosis of hip Pharyngitis Psychiatric care URI (upper respiratory infection) Surgical History H/O shoulder surgery History of hip replacement, total History of surgery of head Hx of breast biopsy Family History Other Diabetes Hypertension Social History Smoking and tobacco status: former smoker Alcohol intake: never Substance/Drug Use: never Household members: children Marital status: Current occupational status: employed Course Vital Signs: Vital signs: Vital Signs Temperature 98.1 F 12/27/22 12:56 Pulse Rate 87 12/27/22 12:56 Respiratory Rate 16 12/27/22 12:56 Blood Pressure 130/95 12/27/22 12:56 Pulse Oximetry 98 12/27/22 12:56 Oxygen Delivery Me thod Room Air 12/27/22 12:56 MDM - Abdominal Pain Medical Decision Making Patient is a 47-year-old female comes to the ED with abdominal pain, nausea and vomiting. Past medical history of pancreatitis, hysterectomy and hernia surgery. symptoms started approximately 4 days ago. Abdominal pain is located in the upper abdomen bilaterally. Pain radiates to her back. She rates the pain currently a 9 out of 10. She is having trouble keeping any food or fluids down. Whenever she tries to drink or eat anything she gets more nauseous and her abdominal pain worsens. Denies any fevers. Vitals are stable. CBC and CMP are unremarkable. Lipase is normal at 42. UA is unremarkable. Nurse was st lee to get an IV on patient. Pending IV fluids, pain meds and nausea meds and CT abdomen pelvis results. Patient given DC home if CT is normal and she is able to tolerate p.o. fluids after meds. Patient was able to tolerate fluids. CT of the abdomen pelvis noted some air- fluid levels in the small intestine and some mild constipation but otherwise unremarkable. Patient reported improvement in symptoms and felt comfortable to go home. Patient appeared stable reviewed exam with patient with recommendations for treatment and follow-up. Patient reported understanding and agreed to plan. Lab Data 12/27/22 15:24 12/27/22 15:24 Labs/Radiology: Radiology Impressions Abdomen/Pelvis CT 12/27/22 15:21 IMPRESSION: 1. Prominent fluid in the small bowel without dilation suggestive of an enteritis. 2. Right hip arthroplasty changes. 3. Bilateral renal cysts, negative for follow-up advised. 4. Bibasilar atelectasis. 5. Hepatic steatosis. 6. Splenic cyst. 7. Constipation. 8. Left kidney punctate nonobstructing calyceal stone. COMMENTS: Consistent with the [employer]'s Incidental Findings Committee white paper (J Am Rohit Radiol 2018): Any incidental renal lesion less than 1 cm or classified as too small to characterize, or any incidental cystic renal lesion characterized as simple-appearing, is likely benign. No follow-up imaging is recommended for these lesions per consensus recommendations based on imaging criteria. Laboratory Results WBC 5.7 10^3/uL (4.0-10.0) 12/27/22 15:24 RBC 4.27 10^6/uL (4.1-5.3) 12/27/22 15:24 Hgb 12.6 g/dL (11.5-15.3) 12/27/22 15:24 Hct 37.1 % (37.0-47.0) 12/27/22 15:24 MCV 86.9 fl (81-99) 12/27/22 15:24 MCH 29.5 pg (28.0-34.0) 12/27/22 15:24 MCHC 34.0 g/dL (30.0-36.0) 12/27/22 15:24 RDW 12.6 % (12.1-15.1) 12/27/22 15:24 Plt Count 200 10^3/cmm (130-400) 12/27/22 15:24 MPV 9.6 fL (7.4-10.4) 12/27/22 15:24 Neut % (Auto) 39.6 % 12/27/22 15:24 Lymph % (Auto) 51.0 % 12/27/22 15:24 Maverick % (Auto) 7.3 % 12/27/22 15:24 Eos % (Auto) 1.4 % 12/27/22 15:24 Baso % (Auto) 0.5 % 12/27/22 15:24 Neut # (Auto) 2.27 10^3/uL (1.8-7.7) 12/27/22 15:24 Lymph # (Auto) 2.9 10^3/uL (0.8-4.8) 12/27/22 15:24 Maverick # (Auto) 0.4 10^3/uL (0.2-0.9) 12/27/22 15:24 Eos # (Auto) 0.1 10^3/uL (0.0-0.8) 12/27/22 15:24 Baso # (Auto) 0.0 10^3/uL (0.0-0.1) 12/27/22 15:24 Nucleated RBC % (auto) 0 % 12/27/22 15:24 Nucleated RBCs # 0.0 /100WBC 12/27/22 15:24 Sodium 138 mmol/L (136-145) 12/27/22 15:24 Potassium 4.1 mmol/L (3.5-5.1) 12/27/22 15:24 Chloride 105 mmol/L (98-107) 12/27/22 15:24 Carbon Dioxide 22 mmol/L (22-29) 12/27/22 15:24 Anion Gap 15.1 (5-19) 12/27/22 15:24 BUN 9 mg/dL (6-20) 12/27/22 15:24 Creatinine 0.8 mg/dL (0.5-0.9) 12/27/22 15:24 GFR Calculation 76.6 mL/min (90-130) L 12/27/22 15:24 Glucose 100 mg/dL (65-115) 12/27/22 15:24 Calculated Osmolality 285 mOsm/kg (285-295) 12/27/22 15:24 Calcium 9.5 mg/dL (8.5-10.5) 12/27/22 15:24 Total Bilirubin 0.3 mg/dL (0.15-1.2) 12/27/22 15:24 AST 12 U/L (0-32) 12/27/22 15:24 ALT 12 U/L (0-33) 12/27/22 15:24 Alkaline Phosphatase 101 U/L (35-105) 12/27/22 15:24 Total Protein 7.3 g/dL (6.6-8.7) 12/27/22 15:24 Albumin 4.7 g/dL (3.5-5.2) 12/27/22 15:24 Globulin 2.6 g/dL (1.3-4.6) 12/27/22 15:24 Lipase 42 U/L (13-60) 12/27/22 15:24 HCG, Qual Negative (Negative) 12/27/22 15:24 Urine Color Yellow (Yellow) 12/27/22 15:34 Urine Appearance Clear (CLEAR) 12/27/22 15:34 Urine pH 6 (5-7) 12/27/22 15:34 Ur Specific [place] 1.010 (1.005-1.030) 12/27/22 15:34 Urine Protein Neg (Negative) 12/27/22 15:34 Urine Glucose (UA) Norm (Normal) 12/27/22 15:34 Urine Ketones Negative (Negative) 12/27/22 15:34 Urine Blood Neg (Negative) 12/27/22 15:34 Urine Nitrate Negative (Negative) 12/27/22 15:34 Urine Bilirubin Neg (Negative) 12/27/22 15:34 Urine Urobilinogen Norm mg/dL (Negative) 12/27/22 15:34 Ur Leukocyte Esterase Negative (Negative) 12/27/22 15:34 Discharge Plan Discharge Patient Disposition: Home Clinical Impression: Enteritis Condition: Stable Prescriptions: New hydrocodone-acetaminophen 5-325 mg tablet 1 tab PO Q8H PRN (Reason: pain) Qty: 6 0RF ondansetron 4 mg tablet,disintegrating 4 mg PO Q8H PRN (Reason: nausea and vomiting) Qty: 6 0RF No Action oxcarbazepine 300 mg tablet 300 mg PO BID Qty: 60 1RF Rx Instructions: Take one tablet by mouth morning and at night trazodone 100 mg tablet 200 mg PO BEDTIME Qty: 60 1RF Rx Instructions: Take two tablets by mouth at bedtime clonazepam [Klonopin] 0.5 mg tablet 0.5 mg PO DAILY 30 Days Qty: 30 1RF Rx Instructions: Take one tablet every morning topiramate 200 mg tablet 200 mg PO BEDTIME Qty: 30 5RF gabapentin 300 mg capsule See Rx Instructions .ROUTE .COMPLEX Qty: 210 2RF Dose Instruction: Take 4 capsules BY MOUTH EVERY MORNING AND THREE AT NIGHT Rx Instructions: Take 4 capsules BY MOUTH EVERY MORNING AND THREE AT NIGHT vitamin E 268 mg (400 unit) Capsule 268 mg PO DAILY cholecalciferol (vitamin D3) [Vitamin D3] 25 mcg (1,000 unit) Capsule 25 mcg PO DAILY vitamin V61-ylgec acid 0.5-1 mg Tablet 1 tab PO DAILY Centrum Women 18-400 mg-mcg Tablet 1 tab PO DAILY Collagen 1500 Plus C 500 mg-800 mcg- 50 mg Capsule 1 cap PO DAILY ibuprofen [Advil] 200 mg Tablet 800 mg PO Q6H PRN (Reason: Pain) lamotrigine 200 mg tablet 400 mg PO BEDTIME Rx Instructions: Take two tablets daily at bedtime omeprazole 40 mg capsule,delayed release(DR/EC) 40 mg PO DAILY Discharge Orders: Discharge ED (Routine); Ordered 12/27/22 Ordered By: Brandyn Galeas Referrals: Tarik Villasenor DO [Primary Care Provider] - Discharge Diet: Advance as tolerated Discharge Activity: Increase activity as tolerated Patient Instructions: Gastroenteritis (ED), Opioid Safety Activity Restrictions/Additional Instructions: Drink plenty of water and fluids. Use ondansetron 1 tablet every 8 hours to help with nausea and vomiting. Use hydrocodone for severe pain. Use routine medications as directed. Take frequent sips of fluids to maintain hydration. Follow-up with primary care in 2 days for recheck. Return to ED for new concerns or worsening symptoms such as fever greater than 100.4, blood in vomit or stool. Sign Out Sign Out Data: Patient Sign Out occurred on 12/27/22 at 17:03. Patient's care was discussed, and care was transferred from to Brandyn Galeas. Coding Level of Care Code ED Meter Repairer Helper for Chg Fwd
[2022-12-27 15:30] LABS: Basophils % 0.5 %; Eosinophils # 0.1 10^3/uL (0.0-0.8); Eosinophils % 1.4 %; Hematocrit 37.1 % (37.0-47.0); Hemoglobin 12.6 g/dL (11.5-15.3); Lymphocytes # 2.9 10^3/uL (0.8-4.8); Mean Corpuscular Hemoglobin 29.5 pg (28.0-34.0); Mean Corpuscular Volume 86.9 fl (81-99); Mean Platelet Volume 9.6 fL (7.4-10.4); Monocytes # 0.4 10^3/uL (0.2-0.9); Monocytes % 7.3 %; Neutrophils # 2.27 10^3/uL (1.8-7.7); Neutrophils % 39.6 %; Nucleated Red Blood Cells % 0 %; Platelet Count 200 10^3/cmm (130-400); Red Blood Count 4.27 10^6/uL (4.1-5.3); Red Cell Distribution Width 12.6 % (12.1-15.1); White Blood Count 5.7 10^3/uL (4.0-10.0)
[2022-12-27 16:06] LABS: Alanine Aminotransferase 12 U/L (0-33); Albumin Level 4.7 g/dL (3.5-5.2); Alkaline Phosphatase 101 U/L (35-105); Anion Gap 15.1 (5-19); Aspartate Amino Transferase 12 U/L (0-32); Blood Urea Nitrogen 9 mg/dL (6-20); Calcium 9.5 mg/dL (8.5-10.5); Carbon Dioxide 22 mmol/L (22-29); Chloride 105 mmol/L (98-107); Globulin 2.6 g/dL (1.3-4.6); Glomerular Filtration Rate 76.6 mL/min (90-130); Glucose 100 mg/dL (65-115); Lipase 42 U/L (13-60); Osmolality Calculated 285 mOsm/kg (285-295); Potassium 4.1 mmol/L (3.5-5.1); Sodium 138 mmol/L (136-145); Total Bilirubin 0.3 mg/dL (0.15-1.2); Total Protein 7.3 g/dL (6.6-8.7)
[2022-12-27 16:13] LABS: HCG, Serum Qual Negative (Negative)
[2022-12-27 16:14] LABS: Add Urine Microscopic? NO; Charge for UA Resulting for Rev
[2022-12-27 16:18] LABS: Bilirubin Urine Neg (Negative); Blood Urine Neg (Negative); Glucose Urine UA Norm (Normal); Ketones Urine Negative (Negative); Leukocyte Esterase Urine Negative (Negative); Nitrate Urine Negative (Negative); Protein Urine Neg (Negative); Urine Appearance Clear (CLEAR); Urine Color Yellow (Yellow); Urobilinogen Urine Norm (Negative); pH Urine 6 (5-7)
[2022-12-27] MEDS: HYDROmorphone 1 mg/mL INJ 1 mL IVP (16:45)
[2022-12-27] MEDS: ondansetron 2 mg/ML SDV 2 mL 4 MG IVP (16:45)
[2022-12-27] MEDS: iohexol 350 mg/mL 500 mL Btl (per mL) IV (16:53)
[2022-12-27] MEDS: sodium chloride 0.9% 1,000 ML 999 ML IV (17:23)
== END 2022-12-27 17:55 | disposition home or self-care (01) ==
PROVIDERS: Physician Assistant; Emergency Provider Nurse Practitioner Family; PCP Family Medicine
DX: K52.9 Noninfective gastroenteritis and colitis, unspecified (principal); Z79.899 Other long term (current) drug therapy; Z87.891 Personal history of nicotine dependence
CPT/HCPCS: 36415; 74177; 80053; 81003; 83690; 84703; 85025; 96374; 96375; 99285; J1170; J2405; J7030; Q9967

== ENCOUNTER 2023-01-03 14:43 | Emergency (ER) | payer MEDICAID, SELFPAY ==
[2023-01-03 14:48] VITALS: BP 123/94; PULSE 96; RESP 20; TEMP 36.8; O2SAT 98
[2023-01-03 16:53] LABS: Basophils % 0.8 %; Eosinophils # 0.1 10^3/uL (0.0-0.8); Eosinophils % 1.9 %; Hematocrit 38.7 % (37.0-47.0); Hemoglobin 13.1 g/dL (11.5-15.3); Lymphocytes # 2.7 10^3/uL (0.8-4.8); Lymphocytes % 53.4 %; Mean Corpuscular HGB Conc 33.9 g/dL (30.0-36.0); Mean Corpuscular Hemoglobin 29.5 pg (28.0-34.0); Mean Corpuscular Volume 87.2 fl (81-99); Mean Platelet Volume 9.7 fL (7.4-10.4); Monocytes # 0.4 10^3/uL (0.2-0.9); Neutrophils # 1.88 10^3/uL (1.8-7.7); Neutrophils % 36.7 %; Nucleated Red Blood Cells % 0 %; Platelet Count 222 10^3/cmm (130-400); Red Blood Count 4.44 10^6/uL (4.1-5.3); Red Cell Distribution Width 12.3 % (12.1-15.1); White Blood Count 5.1 10^3/uL (4.0-10.0)
[2023-01-03 17:08] LABS: Alanine Aminotransferase 13 U/L (0-33); Albumin Level 4.3 g/dL (3.5-5.2); Alkaline Phosphatase 96 U/L (35-105); Anion Gap 16.9 (5-19); Aspartate Amino Transferase 16 U/L (0-32); Blood Urea Nitrogen 12 mg/dL (6-20); Calcium 9.2 mg/dL (8.5-10.5); Carbon Dioxide 21 mmol/L (22-29); Chloride 104 mmol/L (98-107); Globulin 3.1 g/dL (1.3-4.6); Glomerular Filtration Rate 76.6 mL/min (90-130); Glucose 115 mg/dL (65-115); Lipase 33 U/L (13-60); Osmolality Calculated 287 mOsm/kg (285-295); Potassium 3.9 mmol/L (3.5-5.1); Sodium 138 mmol/L (136-145); Total Bilirubin 0.3 mg/dL (0.15-1.2); Total Protein 7.4 g/dL (6.6-8.7)
--- NOTE | 2023-01-03 19:09 | ECG_ITS ---
[facility] Test Date: 2023-01-03 Pat Name: Re Weinberg Department: Room: Gender: Female Light Bulb Replacer: : 1975 Requested By: Dora Carlson Order Number: [id number] Rylan MD: Flor Salas M.D. Measurements Intervals [place] Rate: 77 P: 63 OK: 173 QRS: 64 QRSD: 85 T: 86 QT: 391 QTc: 444 Interpretive Statements SINUS RHYTHM ST DEVIATION AND MODERATE T-WAVE ABNORMALITY, CONSIDER ANTERIOR ISCHEMIA [-0.1+ mV T-WAVE IN V3/V4] Compared to ECG 10/21/2022 17:37:50 Possible ischemia now present T-wave abnormality still present Electronically Signed On 01-03-2023 23:28:07 CDT by Flor Salas M.D. [id number]
--- NOTE | 2023-01-03 19:09 | XRR_ITS ---
PROCEDURE INFORMATION: Exam: XR Chest Exam date and time: 01/03/2023 7:17 PM Age: 47 years old Clinical indication: Pain; Chest pressure; Additional info: Abd pain TECHNIQUE: Imaging protocol: Radiologic exam of the chest. Views: 1 view. COMPARISON: CR XR chest 1V portable [id number] 10/21/2022 5:28 PM FINDINGS: Lungs: Unremarkable. No consolidation. Pleural spaces: Unremarkable. No pleural effusion. No pneumothorax. Heart/Mediastinum: Unremarkable. No cardiomegaly. Bones/joints: Reverse right shoulder arthroplasty noted. Visualized osseous structures are intact. XR/XR chest 1V portable [id number] IMPRESSION: No acute findings.
--- NOTE | 2023-01-03 19:09 | USR_ITS ---
PROCEDURE INFORMATION: Exam: US Abdomen, Limited; Right Upper Quadrant Exam date and time: 01/03/2023 9:00 PM Age: 47 years old Clinical indication: Abdominal pain; Patient HX: Normal tbili = 0.3, normal ast = 16, normal alt = 13, normal alkphos = 96, normal lipase = 33. C/O epigastric pain. ; Additional info: Abd pain TECHNIQUE: Imaging protocol: Real time ultrasound of the abdomen with image documentation. Limited exam focused on the right upper quadrant. COMPARISON: CT abdomen pelvis w con* [id number] 12/27/2022 4:53 PM FINDINGS: Liver: Normal. No masses. Gallbladder: Normal. No gallstones. There is no gallbladder wall thickening. Negative sonographic Cabrera sign. Biliary ducts: Normal. No stones. No dilation. Pancreas: Visualized pancreas is unremarkable. Right kidney: Right kidney measures 9.2 cm in length. No mass. No hydronephrosis. US/US gall bladder [id number] IMPRESSION: No acute findings.
--- NOTE | 2023-01-03 19:30 | W.ED.ABDPA2 ---
HPI - Abdominal Pain General: Chief Complaint: Abdominal Pain Stated Complaint: ABD Pain Time Seen by Provider: 01/03/23 18:54 Source: patient Mode of arrival: ambulatory Limitations: no limitations History of Present Illness: 39-year-old female has been having abdominal pain over the last week. States the pain has been sharp in nature and epigastric she is also had vomiting as well. She is seen here last week had a CT scan showed some enteritis blood work was normal she states she has been vomiting not able to keep her pain meds but down her pain increases currently and 9 out of 10 denies any dysuria. Associated Symptoms: Reports nausea and vomiting; Denies chills, diarrhea, dysuria and fever(s) Review of Systems Const: Denies: fever(s), chills, body aches or change in appetite ENMT: Denies: throat pain or dental pain Card: Denies: chest pain Resp: Denies: dyspnea GI: Reports: abdominal pain, nausea and vomiting; Denies: diarrhea : Denies: dysuria Musc: Denies: neck pain or back pain Skin/Breast: Denies: rash Neuro: Denies: headache(s) Psych: Denies: depression PFSH ED PFSH: Medical History Bipolar disorder Migraines Osteonecrosis of hip Pharyngitis Psychiatric care URI (upper respiratory infection) Surgical History H/O shoulder surgery History of hip replacement, total History of surgery of head Hx of breast biopsy Family History Other Diabetes Hypertension Social History Smoking and tobacco status: former smoker Alcohol intake: never Substance/Drug Use: never Household members: children Marital status: Current occupational status: employed Physical Exam Const: COMMON NORMALS: no acute distress, patient oriented x3 and healthy appearing HENMT: COMMON NORMALS: normocephalic and atraumatic HEAD & SCALP: normocephalic and atraumatic Neck/C-Spine: COMMON NORMALS: full ROM and supple Chest: COMMONS NORMALS: normal inspection of the chest and normal palpation of entire chest wall Resp: COMMON NORMALS: normal respiratory effort, No retractions, No use of accessory muscles and clear to auscultation bilaterally AUSCULTATION: clear to auscultation bilaterally Cardio: COMMON NORMALS: regular rate, regular rhythm and No murmurs present (Cardio) RATE: regular rate RHYTHM: regular rhythm GI: COMMON NORMALS: Normal to inspection, nondistended, normoactive bowel sounds present, Soft to palpation and no masses PALPATION: Yes Soft to palpation OTHER: mild epigastric tenderness Extremity: COMMON NORMALS: normal to inspection and full ROM Neuro: COMMON NORMALS: patient oriented x3, moves all extremities and no focal motor deficits Psych: COMMON NORMALS: mental status grossly normal, Normal thought process present and cooperative THOUGHT PROCESS: Normal thought process present Skin: COMMON NORMALS: no rashes or lesions noted and no wounds GENERAL SKIN EXAM: no rashes or lesions noted Course Vital Signs: Vital signs: Vital Signs Temperature 98.2 F 01/03/23 14:48 Pulse Rate 72 01/03/23 21:55 Respiratory Rate 20 H 01/03/23 14:48 Blood Pressure 121/86 01/03/23 21:55 Pulse Oximetry 94 01/03/23 21:55 Oxygen Delivery Me thod Room Air 01/03/23 21:55 MDM - Abdominal Pain Medical Decision Making Patient presents with abdominal pain imaging blood work here is all normal she feels much improved we will get her follow-up with surgery we will prescribe her Phenergan she has pain meds at home she is return if worsening. Medical Records I reviewed the patient's medical records. Lab Data I reviewed the patient's lab results. 01/03/23 16:40 01/03/23 16:40 Labs/Radiology: Radiology Impressions Chest X-Ray 01/03/23 19:09 IMPRESSION: No acute findings. Gallbladder Ultrasound 01/03/23 19:09 IMPRESSION: No acute findings. Laboratory Results WBC 5.1 10^3/uL (4.0-10.0) 01/03/23 16:40 RBC 4.44 10^6/uL (4.1-5.3) 01/03/23 16:40 Hgb 13.1 g/dL (11.5-15.3) 01/03/23 16:40 Hct 38.7 % (37.0-47.0) 01/03/23 16:40 MCV 87.2 fl (81-99) 01/03/23 16:40 MCH 29.5 pg (28.0-34.0) 01/03/23 16:40 MCHC 33.9 g/dL (30.0-36.0) 01/03/23 16:40 RDW 12.3 % (12.1-15.1) 01/03/23 16:40 Plt Count 222 10^3/cmm (130-400) 01/03/23 16:40 MPV 9.7 fL (7.4-10.4) 01/03/23 16:40 Neut % (Auto) 36.7 % 01/03/23 16:40 Lymph % (Auto) 53.4 % 01/03/23 16:40 [place] % (Auto) 7.0 % 01/03/23 16:40 Eos % (Auto) 1.9 % 01/03/23 16:40 Baso % (Auto) 0.8 % 01/03/23 16:40 Neut # (Auto) 1.88 10^3/uL (1.8-7.7) 01/03/23 16:40 Lymph # (Auto) 2.7 10^3/uL (0.8-4.8) 01/03/23 16:40 [place] # (Auto) 0.4 10^3/uL (0.2-0.9) 01/03/23 16:40 Eos # (Auto) 0.1 10^3/uL (0.0-0.8) 01/03/23 16:40 Baso # (Auto) 0.0 10^3/uL (0.0-0.1) 01/03/23 16:40 Nucleated RBC % (auto) 0 % 01/03/23 16:40 Nucleated RBCs # 0.0 /100WBC 01/03/23 16:40 Sodium 138 mmol/L (136-145) 01/03/23 16:40 Potassium 3.9 mmol/L (3.5-5.1) 01/03/23 16:40 Chloride 104 mmol/L (98-107) 01/03/23 16:40 Carbon Dioxide 21 mmol/L (22-29) L 01/03/23 16:40 Anion Gap 16.9 (5-19) 01/03/23 16:40 BUN 12 mg/dL (6-20) 01/03/23 16:40 Creatinine 0.8 mg/dL (0.5-0.9) 01/03/23 16:40 GFR Calculation 76.6 mL/min (90-130) L 01/03/23 16:40 Glucose 115 mg/dL (65-115) 01/03/23 16:40 Calculated Osmolality 287 mOsm/kg (285-295) 01/03/23 16:40 Calcium 9.2 mg/dL (8.5-10.5) 01/03/23 16:40 Total Bilirubin 0.3 mg/dL (0.15-1.2) 01/03/23 16:40 AST 16 U/L (0-32) 01/03/23 16:40 ALT 13 U/L (0-33) 01/03/23 16:40 Alkaline Phosphatase 96 U/L (35-105) 01/03/23 16:40 Troponin T Baseline 6 ng/L (0-10) 01/03/23 16:40 Total Protein 7.4 g/dL (6.6-8.7) 01/03/23 16:40 Albumin 4.3 g/dL (3.5-5.2) 01/03/23 16:40 Globulin 3.1 g/dL (1.3-4.6) 01/03/23 16:40 Lipase 33 U/L (13-60) 01/03/23 16:40 Discharge Plan Discharge Patient Disposition: Home Clinical Impression: Abdominal pain Condition: Stable Prescriptions: New promethazine 25 mg tablet 25 mg PO Q6H PRN (Reason: nausea and vomiting) Qty: 20 0RF No Action oxcarbazepine 300 mg tablet 300 mg PO BID Qty: 60 1RF Rx Instructions: Take one tablet by mouth morning and at night trazodone 100 mg tablet 200 mg PO BEDTIME Qty: 60 1RF Rx Instructions: Take two tablets by mouth at bedtime clonazepam [Klonopin] 0.5 mg tablet 0.5 mg PO DAILY 30 Days Qty: 30 1RF Rx Instructions: Take one tablet every morning topiramate 200 mg tablet 200 mg PO BEDTIME Qty: 30 5RF gabapentin 300 mg capsule See Rx Instructions .ROUTE .COMPLEX Qty: 210 2RF Dose Instruction: Take 4 capsules BY MOUTH EVERY MORNING AND THREE AT NIGHT Rx Instructions: Take 4 capsules BY MOUTH EVERY MORNING AND THREE AT NIGHT vitamin E 268 mg (400 unit) Capsule 268 mg PO DAILY cholecalciferol (vitamin D3) [Vitamin D3] 25 mcg (1,000 unit) Capsule 25 mcg PO DAILY vitamin R55-zyggg acid 0.5-1 mg Tablet 1 tab PO DAILY Centrum Women 18-400 mg-mcg Tablet 1 tab PO DAILY Collagen 1500 Plus C 500 mg-800 mcg- 50 mg Capsule 1 cap PO DAILY ibuprofen [Advil] 200 mg Tablet 800 mg PO Q6H PRN (Reason: Pain) lamotrigine 200 mg tablet 400 mg PO BEDTIME Rx Instructions: Take two tablets daily at bedtime omeprazole 40 mg capsule,delayed release(DR/EC) 40 mg PO DAILY hydrocodone-acetaminophen 5-325 mg tablet 1 tab PO Q8H PRN (Reason: pain) Qty: 6 0RF ondansetron 4 mg tablet,disintegrating 4 mg PO Q8H PRN (Reason: nausea and vomiting) Qty: 6 0RF Discharge Orders: Discharge ED (Routine); Ordered 01/03/23 Ordered By: Dora Carlson Referrals: Tarik Villasenor DO [Primary Care Provider] - Richardson Carrington MD [Physician] - 1-3 days Discharge Diet: Advance as tolerated Discharge Activity: Resume usual activity Patient Instructions: Abdominal Pain (ED) Coding Level of Care Code ED Motor [employer] for Flor Alejandro
--- NOTE | 2023-01-03 20:36 | PC.NURSE ---
said to give IVP meds ordered IM.
[2023-01-03] MEDS: ondansetron 2 mg/ML SDV 2 mL 4 MG IVP (20:53)
[2023-01-03] MEDS: HYDROmorphone 1 mg/mL INJ 1 mL IVP (20:53)
[2023-01-03 20:54] VITALS: BP 127/82; PULSE 73; O2SAT 95
[2023-01-03 21:00] VITALS: BP 126/86; PULSE 69; O2SAT 98
[2023-01-03 21:55] VITALS: BP 121/86; PULSE 72; O2SAT 94
[2023-01-03 21:59] LABS: Troponin(5th) Baseline 6 ng/L (0-10)
--- NOTE | 2023-01-04 11:26 | DCPLANNER ---
Addendum entered by Addis Hanks 01/12/23 10:39: Patient did not attend appointment Addendum entered by Addis Hanks 01/09/23 08:16: Patient has a follow up appointment scheduled for January [id number] at 3:[address] Carrington at general surgery. Original Note: manager environmental services had message to schedule a follow up appointment for patient with general surgery. manager environmental services sent patients information to the front office staff at general surgery. Patients information will be printed and reviewed. Clinic will call patient with appointment information.
== END 2023-01-03 22:22 | disposition home or self-care (01) ==
PROVIDERS: Emergency Medicine; Emergency Provider Emergency Medicine; PCP Family Medicine
DX: R10.13 Epigastric pain (principal); Z79.899 Other long term (current) drug therapy; Z87.891 Personal history of nicotine dependence
CPT/HCPCS: 36415; 71045; 76705; 80053; 83690; 84484; 85025; 93005; 96374; 96375; 99285; J1170; J2405

== ENCOUNTER 2023-03-05 14:19 | Emergency (ER) | payer MEDICAID, SELFPAY ==
[2023-03-05 14:20] VITALS: PULSE 83; RESP 18; TEMP 36.7; O2SAT 97; BMI 24.9
--- NOTE | 2023-03-05 14:31 | CT_ITS ---
WS: [id number] CT CERVICAL TRAUMA TECHNIQUE: Noncontrast CT of the cervical spine with coronal and sagittal reformatted images. CLINICAL INFORMATION: trauma COMPARISON: 10/14/2022 DLP: 1333.[address] scans at [facility] use at least one of these dose optimization techniques: automated e xposure control; mA and/or kV adjustment per patient size (includes targeted exams where dose is matc hed to clinical indication); or iterative reconstruction. FINDINGS: Straightening of the normal cervical lordosis. Normal craniocervical junction. Normal C1-C2 articulat ion. Dens is normal in appearance. Normal occipital condyles. No high-grade spinal canal narrowing. N ormal C1 ring. No evidence of acute fracture or dislocation. Slight anterolisthesis C5 on C6 and C6 o n C7 unchanged compared to previous. Normal prevertebral soft tissues. A few small thyroid nodules. IMPRESSION: No evidence of acute fracture or dislocation.
--- NOTE | 2023-03-05 14:31 | XR_ITS ---
WS: [id number] EXAMINATION: XR shoulder RT min 2V* [id number] REASON FOR EXAM: trauma COMPARISON: None available. ORDER DATE: 03/05/2023 2:35 PM TECHNIQUE: 3 views of the right shoulder were obtained. X-RAY FINDINGS: No fractures or dislocations. 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 Normal motion of the shoulder with internal/external rotation. No degenerative changes. Acromioclavicular joint appears unremarkable. Limited visualization of the adjacent hemithorax is unremarkable. IMPRESSION: No fractures or dislocations of the right shoulder with reverse shoulder replacement.
--- NOTE | 2023-03-05 14:33 | CT_ITS ---
WS: [id number] CT HEAD TECHNIQUE: Noncontrast CT of the head obtained from the skullbase to the vertex. CLINICAL INFORMATION: trauma COMPARISON: CT 10/14/2022 DLP: 1333.[address] scans at [facility] use at least one of these dose optimization techniques: automated e xposure control; mA and/or kV adjustment per patient size (includes targeted exams where dose is matc hed to clinical indication); or iterative reconstruction. FINDINGS: No evidence of intracranial hemorrhage or mass effect. Ventricular system and basal cisterns are tomlin nt. No extra-axial fluid collections. No evidence of mass or mass effect. Normal yuen-white different iation. Paranasal sinuses and mastoid air cells are well aerated. .Normal visualized soft tissues. IMPRESSION: 1. No evidence of intracranial hemorrhage or mass effect. 2. No acute intracranial findings.
--- NOTE | 2023-03-05 14:42 | XR_ITS ---
WS: [id number] EXAMINATION: XR wrist RT min 3V* [id number] REASON FOR EXAM: trauma COMPARISON: None available. ORDER DATE: 03/05/2023 2:42 PM FINDINGS: There is no sign of any acute osseous or articular abnormality. There are no specific soft tissue abn ormalities. IMPRESSION: No acute change
[2023-03-05 15:02] LABS: Basophils % 0.7 %; Eosinophils # 0.1 10^3/uL (0.0-0.8); Eosinophils % 1.9 %; Hematocrit 37.1 % (36-47); Lymphocytes # 2.2 10^3/uL (0.8-4.8); Lymphocytes % 50.7 %; Mean Corpuscular HGB Conc 32.6 g/dL (30-55); Mean Corpuscular Hemoglobin 28.3 pg (27-33); Mean Corpuscular Volume 86.7 fl (85-98); Mean Platelet Volume 9.6 fL (7.4-10.4); Monocytes # 0.3 10^3/uL (0.2-0.9); Monocytes % 7.7 %; Neutrophils # 1.66 10^3/uL (1.8-7.7); Neutrophils % 38.8 %; Nucleated Red Blood Cells % 0 %; Platelet Count 200 10^3/cmm (157-399); Red Blood Count 4.28 10^6/uL (3.85-5.65); Red Cell Distribution Width 12.9 % (12.1-15.1); White Blood Count 4.28 10^3/uL (3.29-11.43)
[2023-03-05 15:21] LABS: Alanine Aminotransferase 14 U/L (0-33); Albumin Level 4.7 g/dL (3.5-5.2); Alkaline Phosphatase 96 U/L (35-105); Anion Gap 14.9 (5-19); Aspartate Amino Transferase 15 U/L (0-32); Blood Urea Nitrogen 17 mg/dL (6-20); Calcium 9.3 mg/dL (8.5-10.5); Carbon Dioxide 21 mmol/L (22-29); Chloride 107 mmol/L (98-107); Globulin 2.9 g/dL (1.3-4.6); Glomerular Filtration Rate 89.3 mL/min (90-130); Glucose 99 mg/dL (65-115); Osmolality Calculated 290 mOsm/kg (285-295); Potassium 3.9 mmol/L (3.5-5.1); Sodium 139 mmol/L (136-145); Total Bilirubin 0.3 mg/dL (0.15-1.2); Total Protein 7.6 g/dL (6.6-8.7)
--- NOTE | 2023-03-05 15:24 | ED_ITS ---
HPI - Extremity Problem General: Chief complaint: Extremity Injury, Lower Stated complaint: fall Time Seen by Provider: 03/05/23 14:20 Source: patient Mode of arrival: ambulatory History of Present Illness: 47-year-old female presents emergency room after a fall at home she fell on cement she hit her right knee is complaining of right knee pain right shoulder pain right wrist pain. She did not she does have a small abrasion above her right eye. She is awake and alert and oriented has not had any vomiting. MD Complaint: extremity pain Onset (ago): minute(s) Location: right (Wrist knee shoulder), upper extremity and lower extremity Quality: sharp Radiation: none Relieving factors: rest Exacerbating factors: range of motion and palpation Associated symptoms: Reports no associated symptoms; Deny chest pain, fever(s) or rash Review of Systems Const: Denies: fever(s), chills, fatigue or malaise Card: Denies: chest pain, edema, dyspnea on exertion or orthopnea Resp: Denies: dyspnea, productive cough or non-productive cough GI: Reports: bloating; Denies: abdominal pain, nausea, vomiting, hematemesis, coffee ground emesis, diarrhea, constipation or hematochezia : Denies: flank pain, difficulty voiding, dysuria, urinary frequency or urinary urgency Skin/Breast: Denies: rash or pruritus PFSH ED PFSH: Medical History Bipolar disorder Migraines Osteonecrosis of hip Pharyngitis Psychiatric care URI (upper respiratory infection) Surgical History H/O shoulder surgery History of hip replacement, total History of surgery of head Hx of breast biopsy Family History Other Diabetes Hypertension Social History Smoking and tobacco status: former smoker Alcohol intake: never Substance/Drug Use: never Household members: children Marital status: Current occupational status: employed Physical Exam Const: COMMON NORMALS: no acute distress GENERAL APPEARANCE: cooperative and comfortable ORIENTATION/CONSCIOUSNESS: Yes awake, Yes oriented to person, Yes oriented to place and Yes oriented to time HENMT: COMMON NORMALS: normocephalic and hearing grossly normal bilaterally HEAD & SCALP: normocephalic Resp: COMMON NORMALS: normal respiratory effort, No retractions, No use of accessory muscles and clear to auscultation bilaterally AUSCULTATION: clear to auscultation bilaterally Cardio: COMMON NORMALS: regular rate, regular rhythm and No murmurs present (Cardio) RATE: regular rate RHYTHM: regular rhythm GI: COMMON NORMALS: Soft to palpation and No hepatosplenomegaly present AUSCULTATION: Yes normoactive bowel sounds PALPATION: Yes Soft to palpation, No Tenderness to palpation present (GI), No Guarding due to palpation present (GI) and Yes No hepatosplenomegaly present Extremity: COMMON NORMALS: normal to inspection, capillary refill normal, no clubbing, cyanosis or edema, no calf tenderness and no pedal edema Neuro: SENSORIUM/ORIENTATION: Yes oriented to person, Yes oriented to place and Yes oriented to time Skin: COMMON NORMALS: no rashes or lesions noted GENERAL SKIN EXAM: no rashes or lesions noted OTHER: Superficial abrasion right knee right supraorbital ridge Course Vital Signs: Vital signs: Vital Signs Temperature 98.1 F 03/05/23 14:20 Pulse Rate 83 03/05/23 14:20 Respiratory Rate 18 03/05/23 14:20 Pulse Oximetry 97 03/05/23 14:20 Oxygen Delivery Me thod Room Air 03/05/23 14:20 MDM - Extremity (Nontraumatic) Medical Decision Making Small partial-thickness laceration along the right supraorbital ridge Steri- Strip applied tetanus was updated x-rays unremarkable discharge home Tylenol or Profen as needed for pain follow-up with primary care as needed Medical Records I reviewed the patient's medical records. Lab Data I reviewed the patient's lab results. 03/05/23 14:49 03/05/23 14:49 Laboratory Results WBC 4.28 10^3/uL (3.29-11.43) 03/05/23 14:49 RBC 4.28 10^6/uL (3.85-5.65) 03/05/23 14:49 Hgb 12.10 g/dL (11.27-16.99) 03/05/23 14:49 Hct 37.1 % (36-47) 03/05/23 14:49 MCV 86.7 fl (85-98) 03/05/23 14:49 MCH 28.3 pg (27-33) 03/05/23 14:49 MCHC 32.6 g/dL (30-55) 03/05/23 14:49 RDW 12.9 % (12.1-15.1) 03/05/23 14:49 Plt Count 200 10^3/cmm (157-399) 03/05/23 14:49 MPV 9.6 fL (7.4-10.4) 03/05/23 14:49 Neut % (Auto) 38.8 % 03/05/23 14:49 Lymph % (Auto) 50.7 % 03/05/23 14:49 [place] % (Auto) 7.7 % 03/05/23 14:49 Eos % (Auto) 1.9 % 03/05/23 14:49 Baso % (Auto) 0.7 % 03/05/23 14:49 Neut # (Auto) 1.66 10^3/uL (1.8-7.7) L 03/05/23 14:49 Lymph # (Auto) 2.2 10^3/uL (0.8-4.8) 03/05/23 14:49 [place] # (Auto) 0.3 10^3/uL (0.2-0.9) 03/05/23 14:49 Eos # (Auto) 0.1 10^3/uL (0.0-0.8) 03/05/23 14:49 Baso # (Auto) 0.0 10^3/uL (0.0-0.1) 03/05/23 14:49 Nucleated RBC % (auto) 0 % 03/05/23 14:49 Nucleated RBCs # 0.0 /100WBC 03/05/23 14:49 Sodium 139 mmol/L (136-145) 03/05/23 14:49 Potassium 3.9 mmol/L (3.5-5.1) 03/05/23 14:49 Chloride 107 mmol/L (98-107) 03/05/23 14:49 Carbon Dioxide 21 mmol/L (22-29) L 03/05/23 14:49 Anion Gap 14.9 (5-19) 03/05/23 14:49 BUN 17 mg/dL (6-20) 03/05/23 14:49 Creatinine 0.7 mg/dL (0.5-0.9) 03/05/23 14:49 GFR Calculation 89.3 mL/min (90-130) L 03/05/23 14:49 Glucose 99 mg/dL (65-115) 03/05/23 14:49 Calculated Osmolality 290 mOsm/kg (285-295) 03/05/23 14:49 Calcium 9.3 mg/dL (8.5-10.5) 03/05/23 14:49 Total Bilirubin 0.3 mg/dL (0.15-1.2) 03/05/23 14:49 AST 15 U/L (0-32) 03/05/23 14:49 ALT 14 U/L (0-33) 03/05/23 14:49 Alkaline Phosphatase 96 U/L (35-105) 03/05/23 14:49 Total Protein 7.6 g/dL (6.6-8.7) 03/05/23 14:49 Albumin 4.7 g/dL (3.5-5.2) 03/05/23 14:49 Globulin 2.9 g/dL (1.3-4.6) 03/05/23 14:49 All radiology interpretation(s) finalized by discharge Discharge Plan Discharge Patient Disposition: Home Clinical Impression: Abrasion of knee, Facial laceration, Fall Condition: Stable Prescriptions: No Action trazodone 100 mg tablet 200 mg PO BEDTIME Qty: 60 1RF oxcarbazepine 300 mg tablet 300 mg PO BID Qty: 60 1RF lamotrigine 200 mg tablet 400 mg PO QAM clonazepam 1 mg tablet 1 mg PO DAILY Qty: 30 1RF topiramate 200 mg tablet 200 mg PO BEDTIME Qty: 30 5RF gabapentin 300 mg capsule See Rx Instructions .ROUTE .COMPLEX Qty: 210 2RF Dose Instruction: Take 4 capsules BY MOUTH EVERY MORNING AND THREE AT NIGHT Rx Instructions: Take 4 capsules BY MOUTH EVERY MORNING AND THREE AT NIGHT vitamin E 268 mg (400 unit) Capsule 268 mg PO DAILY cholecalciferol (vitamin D3) [Vitamin D3] 25 mcg (1,000 unit) Capsule 25 mcg PO DAILY vitamin M23-xgnun acid 0.5-1 mg Tablet 1 tab PO DAILY Centrum Women 18-400 mg-mcg Tablet 1 tab PO DAILY Collagen 1500 Plus C 500 mg-800 mcg- 50 mg Capsule 1 cap PO DAILY omeprazole 40 mg capsule,delayed release(DR/EC) 40 mg PO DAILY Discharge Orders: Discharge ED (Routine); Ordered 03/05/23 Ordered By: Rafael Kim Referrals: Tarik Villasenor DO [Primary Care Provider] - Discharge Diet: Usual diet Discharge Activity: Resume usual activity Patient Instructions: Opioid Safety, Pain Management Coding Level of Care Code ED [employer] for Flor Alejandro
[2023-03-05] MEDS: acetaminophen 500 mg Tablet 1000 MG PO (16:29)
[2023-03-05] MEDS: tetanus-dipt-pertussis 0.5 mL SDV IM (16:35)
--- NOTE | 2023-03-05 17:03 | PC.NURSE ---
Applied 2 steri strips to small laceration on patients forehead
== END 2023-03-05 17:04 | disposition home or self-care (01) ==
PROVIDERS: Emergency Provider Family Medicine; PCP Family Medicine
DX: S80.211A Abrasion, right knee, initial encounter (principal); S01.111A Laceration without foreign body of right eyelid and periocular area, initial encounter; Z87.891 Personal history of nicotine dependence; W19.XXXA Unspecified fall, initial encounter; Z23 Encounter for immunization
CPT/HCPCS: 36415; 70450; 72125; 73030; 73110; 80053; 85025; 90471; 90715; 99284

== ENCOUNTER 2023-05-15 14:07 | Emergency (ER) | payer MEDICAID, SELFPAY ==
--- NOTE | 2023-05-15 14:20 | ED_ITS ---
HPI - General Adult 2 General: Chief complaint: Abdominal Pain Stated complaint: ABD PAIN Time Seen by Provider: 05/15/23 14:08 Source: patient Mode of arrival: ambulatory History of Present Illness: 48-year-old female comes in complaining of abdominal pain. She states she has had the abdominal pain for the last 2 months reviewing her chart however she has had this intermittently for the last year and a half she has had several ER visits and office visit with Dr. Russ most recently in April she was seen there and referred to gastroenterology. She states anything she eats or drinks makes her upset she has tried various Tums over the gkue-tiw-xdlngyx medications with no relief. She has no fever sweats chills no dysuria urgency or frequency. There were renal stones on previous CTs but no ureteral stones. She denies any hematuria dysuria urgency or frequency. She has had problems with pancreatitis in the past. Onset (ago): month(s) (18) Location: abdomen Severity: moderate Quality: aching Pain Consistency: intermittent Relieving factors: none Exacerbating factors: none Associated symptoms: Reports decreased appetite and nausea; Deny chest pain, confusion, cough, diaphoresis, dyspnea, fevers/chills, headache(s), malaise, rash, palpitations, seizures, short of breath, syncope, vomiting, weakness or other Treatments prior to arrival: other (Jgyw-wru-hcknspw medications: Tums Pepcid etc.) Review of Systems 2 Const: Denies: malaise or diaphoresis Card: Denies: chest pain, palpitations or syncope Resp: Denies: dyspnea GI: Reports: nausea; Denies: vomiting : Denies: dysuria, urinary frequency or urinary urgency Musc: Denies: neck pain or back pain Skin/Breast: Denies: rash Neuro: Denies: headache(s) or confusion PFSH ED 2 PFSH: Medical History Bipolar disorder Migraines Osteonecrosis of hip Pharyngitis Psychiatric care URI (upper respiratory infection) Surgical History H/O shoulder surgery History of hip replacement, total History of surgery of head Hx of breast biopsy Family History Other Diabetes Hypertension Social History Smoking and tobacco/nicotine status: former use of tobacco/nicotine Alcohol intake: never Substance/Drug Use: never Household members: children Marital status: Current occupational status: employed Physical Exam 2 Const: GENERAL APPEARANCE: cooperative and comfortable O RIENTATION/CONSCIOUSNESS: Yes awake, Yes oriented to person, Yes oriented to place and Yes oriented to time HENMT: COMMON NORMALS: normocephalic, atraumatic and hearing grossly normal bilaterally HEAD & SCALP: normocephalic and atraumatic Resp: COMMON NORMALS: normal respiratory effort, No retractions, No use of accessory muscles and clear to auscultation bilaterally AUSCULTATION: clear to auscultation bilaterally Cardio: COMMON NORMALS: regular rate, regular rhythm and No murmurs present (Cardio) RATE: regular rate RHYTHM: regular rhythm GI: COMMON NORMALS: No hepatosplenomegaly present AUSCULTATION: Yes normoactive bowel sounds PALPATION: Yes Tenderness to palpation present (GI) (Epigastric right upper quadrant), No Guarding due to palpation present (GI) and Yes No hepatosplenomegaly present Extremity: COMMON NORMALS: normal to inspection, capillary refill normal, no clubbing, cyanosis or edema, no calf tenderness and no pedal edema Neuro: SENSORIUM/ORIENTATION: Yes oriented to person, Yes oriented to place and Yes oriented to time Skin: COMMON NORMALS: no rashes or lesions noted GENERAL SKIN EXAM: no rashes or lesions noted Course 2 Vital Signs: Vital signs: Vital Signs Temperature 97.8 F 05/15/23 14:26 Pulse Rate 94 05/15/23 15:23 Respiratory Rate 18 05/15/23 15:23 Blood Pressure 140/98 05/15/23 15:23 Pulse Oximetry 95 05/15/23 15:23 Oxygen Delivery Me thod Room Air 05/15/23 14:36 [facility] - General Adult Medical Decision Making Labs and imaging reviewed. No significant findings. She has been in multiple times over the last year and a half. Dr. Russ's office and to the emergency room with similar complaint. She does not use medical marijuana regularly. She had no signs of GI bleed all of her workups previously and today have been essentially unremarkable. I called and talked to Dr. Russ he is aware of the need for her to see gastroenterology and his staff is currently working on getting the referral done. Patient was rather frustrated with the whole process and left the emergency room without her discharge instructions after we had discussed the results with her. Medical Records I reviewed the patient's medical records. Lab Data I reviewed the patient's lab results. 05/15/23 15:31 05/15/23 14:41 Laboratory Results WBC 5.84 10^3/uL (3.29-11.43) 05/15/23 15:31 Corrected WBC Cancelled 05/15/23 14:41 RBC 4.37 10^6/uL (3.85-5.65) 05/15/23 15:31 Hgb 12.80 g/dL (11.27-16.99) 05/15/23 15:31 Hct 37.6 % (36-47) 05/15/23 15:31 MCV 86.0 fl (85-98) 05/15/23 15:31 MCH 29.3 pg (27-33) 05/15/23 15:31 MCHC 34.0 g/dL (30-55) 05/15/23 15:31 RDW 12.6 % (12.1-15.1) 05/15/23 15:31 Plt Count 232 10^3/cmm (157-399) 05/15/23 15:31 MPV 9.3 fL (7.4-10.4) 05/15/23 15:31 Gran % Cancelled 05/15/23 14:41 Neut % (Auto) 36.8 % 05/15/23 15:31 Lymph % (Auto) 52.2 % 05/15/23 15:31 Milam % (Auto) 7.0 % 05/15/23 15:31 Eos % (Auto) 3.3 % 05/15/23 15:31 Baso % (Auto) 0.5 % 05/15/23 15:31 Neut # (Auto) 2.15 10^3/uL (1.8-7.7) 05/15/23 15:31 Lymph # (Auto) 3.1 10^3/uL (0.8-4.8) 05/15/23 15:31 Milam # (Auto) 0.4 10^3/uL (0.2-0.9) 05/15/23 15:31 Eos # (Auto) 0.2 10^3/uL (0.0-0.8) 05/15/23 15:31 Baso # (Auto) 0.0 10^3/uL (0.0-0.1) 05/15/23 15:31 Absolute Gran (auto) Cancelled 05/15/23 14:41 Nucleated RBC % (auto) 0 % 05/15/23 15:31 Nucleated RBCs # 0.0 /100WBC 05/15/23 15:31 Sodium 135 mmol/L (136-145) L 05/15/23 14:41 Potassium 3.8 mmol/L (3.5-5.1) 05/15/23 14:41 Chloride 103 mmol/L (98-107) 05/15/23 14:41 Carbon Dioxide 19 mmol/L (22-29) L 05/15/23 14:41 Anion Gap 16.8 (5-19) 05/15/23 14:41 BUN 11 mg/dL (6-20) 05/15/23 14:41 Creatinine 0.7 mg/dL (0.5-0.9) 05/15/23 14:41 GFR Calculation 88.9 mL/min (90-130) L 05/15/23 14:41 Glucose 96 mg/dL (65-115) 05/15/23 14:41 Calculated Osmolality 279 mOsm/kg (285-295) L 05/15/23 14:41 Calcium 9.4 mg/dL (8.5-10.5) 05/15/23 14:41 Total Bilirubin 0.3 mg/dL (0.15-1.2) 05/15/23 14:41 AST 17 U/L (0-32) 05/15/23 14:41 ALT 16 U/L (0-33) 05/15/23 14:41 Alkaline Phosphatase 92 U/L (35-105) 05/15/23 14:41 Total Protein 7.9 g/dL (6.6-8.7) 05/15/23 14:41 Albumin 4.6 g/dL (3.5-5.2) 05/15/23 14:41 Globulin 3.3 g/dL (1.3-4.6) 05/15/23 14:41 Lipase 39 U/L (13-60) 05/15/23 14:41 HCG, Qual Negative (Negative) 05/15/23 14:41 Urine Color Colorless (Yellow) 05/15/23 15:33 Urine Appearance Clear (CLEAR) 05/15/23 15:33 Urine pH 7 (5-7) 05/15/23 15:33 Ur Specific [place] 1.010 (1.005-1.030) 05/15/23 15:33 Urine Protein Neg (Negative) 05/15/23 15:33 Urine Glucose (UA) Norm (Normal) 05/15/23 15:33 Urine Ketones Negative (Negative) 05/15/23 15:33 Urine Blood Neg (Negative) 05/15/23 15:33 Urine Nitrate Negative (Negative) 05/15/23 15:33 Urine Bilirubin Neg (Negative) 05/15/23 15:33 Urine Urobilinogen Norm mg/dL (Negative) 05/15/23 15:33 Ur Leukocyte Esterase Negative (Negative) 05/15/23 15:33 All radiology interpretation(s) finalized by discharge Discharge Plan Discharge Patient Disposition: Home Clinical Impression: Chronic abdominal pain Condition: Stable Prescriptions: No Action cyclobenzaprine 5 mg tablet 5 mg PO TID PRN (Reason: muscle spasm) Qty: 20 0RF topiramate 200 mg tablet 200 mg PO BEDTIME Qty: 30 5RF clonazepam 1 mg tablet 1 mg PO DAILY Qty: 60 1RF Rx Instructions: Hold if sedated oxcarbazepine 300 mg tablet 300 mg PO BID Qty: 60 1RF trazodone 100 mg tablet 200 mg PO BEDTIME Qty: 60 1RF gabapentin 300 mg capsule See Rx Instructions .ROUTE .COMPLEX Qty: 210 2RF Dose Instruction: Take 4 capsules BY MOUTH EVERY MORNING AND THREE AT NIGHT Rx Instructions: TAKE 4 CAPSULES BY MOUTH EVERY MORNING AND THREE CAPSULES IN THE EVENING. vitamin E 268 mg (400 unit) Capsule 268 mg PO DAILY cholecalciferol (vitamin D3) [Vitamin D3] 25 mcg (1,000 unit) Capsule 25 mcg PO DAILY vitamin [id number] acid 0.5-1 mg Tablet 1 tab PO DAILY Centrum Women 18-400 mg-mcg Tablet 1 tab PO DAILY Collagen 1500 Plus C 500 mg-800 mcg- 50 mg Capsule 1 cap PO DAILY pantoprazole 40 mg tablet,delayed release (DR/EC) 40 mg PO DAILY lamotrigine 200 mg tablet 400 mg PO BEDTIME Discharge Orders: Discharge ED (Routine); Ordered 05/15/23 Ordered By: Rafael Kim Referrals: Tarik Villasenor, DO [Primary Care Provider] - Discharge Diet: Usual diet Discharge Activity: Increase activity as tolerated Patient Instructions: Abdominal Pain (ED), Opioid Safety, Pain Management Activity Restrictions/Additional Instructions: Thank you for choosing [facility] for your healthcare needs today. Please realize this is an emergency room and that we are providing you with a medical screening exam and this may not be complete and all inclusive of all the testing and or work up that you may need to determine your ailment or severity of your illness. It is very important that you follow up as instructed or that you return to the Emergency Department should you have concerns or if your condition changes or worsens in any way. Contact Dr. Russ for referral to GI. I did discuss your case with Dr. Russ today prior to your discharge and he advised me that he believed his office staff had resent the referral request to gastroenterology at [facility] either yesterday or today. Please call their office for further guidance on referral. Coding Level of Care Code ED Manager [place] for Flor Alejandro
[2023-05-15 14:26] VITALS: BP 140/98; PULSE 102; RESP 18; TEMP 36.6; O2SAT 98; BMI 24.6
--- NOTE | 2023-05-15 14:27 | CT_ITS ---
WS: [id number] CT ABDOMEN PELVIS TECHNIQUE: Noncontrast CT of the abdomen and pelvis with coronal and sagittal reformatted images. CLINICAL INFORMATION: Abdominal pain COMPARISON: CT 12/27/2022 DLP: 516.[address] scans at [facility] use at least one of these dose optimization techniques: automated e xposure control; mA and/or kV adjustment per patient size (includes targeted exams where dose is matc hed to clinical indication); or iterative reconstruction. FINDINGS: Normal noncontrast liver. Incidental splenic cyst or hemangioma unchanged since 12/27/2022 measuring 2 .5 cm. Adrenal glands are normal. No hydronephrosis in either kidney. Tiny nonobstructing LEFT renal tip calculus. No obstructing ureteral calculi. Small exophytic LEFT renal cyst measuring 10 mm unchan ged. Noncontrast pancreas appears normal. Normal GE junction. Normal gallbladder. Pelvic phleboliths. RIGH T BANDAR degrades images in the pelvis. Normal caliber abdominal aorta. Mild constipation in the transve rse colon. No evidence of high-grade small or large bowel obstruction. Prior hysterectomy and appendectomy. IMPRESSION: 1. Prior hysterectomy and appendectomy. 2. Stable 2.5 cm splenic cyst or hemangioma unchanged from multiple prior examinations. 3. No obstructing renal or ureteral calculi. Tiny nonobstructing LEFT renal calyceal tip calculus. 4. No hydronephrosis in either kidney. 5. RIGHT BANDAR degrades images in the pelvis. 6. No free fluid or adenopathy.
[2023-05-15 14:36] VITALS: BP 140/98; PULSE 93; RESP 18; O2SAT 95
[2023-05-15 15:06] LABS: Alanine Aminotransferase 16 U/L (0-33); Albumin Level 4.6 g/dL (3.5-5.2); Alkaline Phosphatase 92 U/L (35-105); Aspartate Amino Transferase 17 U/L (0-32); Blood Urea Nitrogen 11 mg/dL (6-20); Calcium 9.4 mg/dL (8.5-10.5); Carbon Dioxide 19 mmol/L (22-29); Chloride 103 mmol/L (98-107); Globulin 3.3 g/dL (1.3-4.6); Glomerular Filtration Rate 88.9 mL/min (90-130); Glucose 96 mg/dL (65-115); Lipase 39 U/L (13-60); Osmolality Calculated 279 mOsm/kg (285-295); Sodium 135 mmol/L (136-145); Total Bilirubin 0.3 mg/dL (0.15-1.2); Total Protein 7.9 g/dL (6.6-8.7)
[2023-05-15 15:09] LABS: Anion Gap 16.8 (5-19); Potassium 3.8 mmol/L (3.5-5.1)
[2023-05-15 15:13] LABS: HCG, Serum Qual Negative (Negative)
[2023-05-15 15:23] VITALS: BP 140/98; PULSE 94; RESP 18; O2SAT 95
[2023-05-15 15:34] LABS: Add Urine Microscopic? NO; Charge for UA Resulting for Rev
[2023-05-15 15:38] LABS: Basophils % 0.5 %; Eosinophils # 0.2 10^3/uL (0.0-0.8); Eosinophils % 3.3 %; Hematocrit 37.6 % (36-47); Lymphocytes # 3.1 10^3/uL (0.8-4.8); Lymphocytes % 52.2 %; Mean Corpuscular Hemoglobin 29.3 pg (27-33); Mean Platelet Volume 9.3 fL (7.4-10.4); Monocytes # 0.4 10^3/uL (0.2-0.9); Neutrophils # 2.15 10^3/uL (1.8-7.7); Neutrophils % 36.8 %; Nucleated Red Blood Cells % 0 %; Platelet Count 232 10^3/cmm (157-399); Red Blood Count 4.37 10^6/uL (3.85-5.65); Red Cell Distribution Width 12.6 % (12.1-15.1); White Blood Count 5.84 10^3/uL (3.29-11.43)
[2023-05-15 15:38] LABS: Bilirubin Urine Neg (Negative); Blood Urine Neg (Negative); Glucose Urine UA Norm (Normal); Ketones Urine Negative (Negative); Leukocyte Esterase Urine Negative (Negative); Nitrate Urine Negative (Negative); Protein Urine Neg (Negative); Urine Appearance Clear (CLEAR); Urine Color Colorless (Yellow); Urobilinogen Urine Norm (Negative); pH Urine 7 (5-7)
== END 2023-05-15 16:19 | disposition home or self-care (01) ==
PROVIDERS: Physician Assistant; Emergency Provider Family Medicine; PCP Family Medicine
DX: G89.29 Other chronic pain (principal); R10.9 Unspecified abdominal pain; Z87.891 Personal history of nicotine dependence
CPT/HCPCS: 36415; 74176; 80053; 81003; 83690; 84703; 85025; 99284

== ENCOUNTER 2023-08-05 22:46 | Emergency (ER) | payer MEDICAID, SELFPAY ==
[2023-08-05 22:59] VITALS: BP 127/90; PULSE 70; RESP 16; TEMP 36.3; O2SAT 99; BMI 24.6
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
[2023-08-05 23:07] VITALS: BP 114/82; PULSE 75; RESP 16; O2SAT 98
[2023-08-05] MEDS: acetaminophen 500 mg Tablet 1000 MG PO (23:52)
[2023-08-05] MEDS: ondansetron 4 MG Tablet PO (23:52)
== END 2023-08-06 00:23 | disposition home or self-care (01) ==
PROVIDERS: Emergency Provider Nurse Practitioner Family; PCP Family Medicine
DX: M54.2 Cervicalgia (principal); S09.8XXA Other specified injuries of head, initial encounter; Z87.891 Personal history of nicotine dependence; W18.2XXA Fall in (into) shower or empty bathtub, initial encounter
CPT/HCPCS: 70450; 72125; 99284; Q0162

== ENCOUNTER → 2023-10-09 11:20 | Outpatient (BNVA) | payer MEDICAID, SELFPAY | PROVIDERS: PCP Family Medicine; Visit Provider Family Medicine | DX: R30.0 Dysuria (principal) | CPT/HCPCS: 81000 ==

== ENCOUNTER → 2024-05-12 13:49 | Outpatient (BNVA) | payer MEDICAID, SELFPAY | PROVIDERS: PCP Family Medicine | DX: J02.9 Acute pharyngitis, unspecified (principal) | CPT/HCPCS: 87880 ==

== ENCOUNTER → 2024-06-17 16:09 | Outpatient (BNVA) | payer MEDICAID, SELFPAY | PROVIDERS: PCP Family Medicine; Visit Provider Nurse Practitioner Psychiatric/Mental Health | DX: F31.81 Bipolar II disorder (principal); Z51.81 Encounter for therapeutic drug level monitoring; F31.62 Bipolar disorder, current episode mixed, moderate; F60.9 Personality disorder, unspecified; Z79.899 Other long term (current) drug therapy | CPT/HCPCS: 80183 ==

== ENCOUNTER 2024-08-18 16:30 | Inpatient (IN) | payer MEDICAID, SELFPAY ==
[2024-08-18 16:40] VITALS: BP 115/61; PULSE 73; RESP 16; TEMP 36.1; O2SAT 97; BMI 25.8
--- NOTE | 2024-08-18 16:49 | ED.C_ITS ---
HPI - Psych 2 General: Chief Complaint: Psychiatric Symptoms Stated Complaint: 96 Time Seen by Provider: 08/18/24 16:31 Source: patient Mode of arrival: EMS Limitations: no limitations History of Present Illness: Patient is a 49-year-old female who presents to the ED today on a 96-hour hold. She presents with 3 affidavits from her mother, father, and 16-year-old son. Most of the affidavits are illegible. The affidavit from her send stating that his mother is displaying erratic behaviors, seeing things, hearing things, and unable to care for herself. Affidavit states she goes months without showering. Affidavit claims that patient has stated that God is telling her to do extreme things and that she sees demons that resemble her son and has obsessive dreams that revolve around her son and mormon. She spends long hours of the day praying. Patient upon arrival tells me she is not suicidal or homicidal. She denies much of the things listed in the proposed affidavits. MD complaint: other (involuntary commitment ) Associated symptoms: Deny auditory hallucinations, visual hallucinations, depression, homicidal ideation or suicidal ideation Treatments prior to arrival: placed on mental health hold Related Data Home Medications ?Medication ?Instructions ?Recorded ?Confirmed topiramate 200 mg tablet 200 mg PO QPM 08/18/2408/18 Previous Rx's ?Medication ?Instructions ?Recorded clonazepam 1 mg tablet 1 mg PO DAILY PRN anxiety or panic 05/27/24 #30 tabs trazodone 100 mg tablet 200 mg (2 x 100 mg) PO BEDTI ME PRN 06/17/24 insomnia #60 tabs lamotrigine 200 mg tablet 400 mg (2 x 200 mg) PO BEDTI ME #60 06/23/24 tabs escitalopram oxalate 10 mg tablet 10 mg PO DAILY #30 t abs 07/24/24 oxcarbazepine 300 mg tablet 300 mg PO .q am #30 tabs 0 08/07/24 gabapentin 300 mg capsule See Rx Instructions .Route 0 08/18/24 .COMPLEX #210 caps Allergies Allergy/AdvReac Type Severity Reaction Status Date / Time Sulfa (Sulfonamide Allergy Severe closed Verified 07/24/24 11:19 Antibiotics) throat haloperidol (From Haldol) Allergy Intermediate increased Verified 07/24/24 11:19 anxiety levofloxacin (From Levaquin) Allergy Intermediate hives Verified 07/24/24 11:19 ketorolac (From Toradol) Allergy ALGY-Swell Verified 07/24/24 11:19 Lip/Tongue/Throat metoclopramide (From Reglan) Allergy ALGY-Swell Verified 07/24/24 11:19 Lip/Tongue/Throat morphine Allergy ADR-Itching Verified 07/24/24 11:19 Review of Systems 2 Const: Denies: fever(s) or chills Card: Denies: chest pain, palpitations, lightheadedness or syncope Resp: Denies: dyspnea GI: Denies: abdominal pain, nausea, vomiting or diarrhea Skin/Breast: Denies: rash Neuro: Denies: headache(s) Psych: Denies: anxiety, depression, hopelessness, irritability, paranoia, visual hallucinations, auditory hallucinations, suicidal ideation or homicidal ideation PFSH ED 2 PFSH: Medical History Acne rosacea Psychiatric care Osteonecrosis of hip Bipolar disorder Migraines Surgical History Hx of cholecystectomy S/P colonoscopic polypectomy 5..24 at [facility]--polyps--repeat 5 yrs Hx of bilateral inguinal hernia repair Hx of section x1 History of appendectomy S/P hysterectomy with oophorectomy BSO; done for endometriosis; no cancer H/O shoulder replacement R shoulder Hx of breast biopsy left; it was benign History of surgery of head excision of forehead cyst History of hip replacement, total right Family History Other Diabetes Hypertension Social History Smoking and tobacco/nicotine status: current every day tobacco/nicotine user e- cigarettes Alcohol intake: former Substance/Drug Use: never Additional social history: vapes now Household members: children and other Details: parents Marital status: Number of children: 1 Highest education level completed: Associate Degree: Academic Program Current occupational status: previously employed 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; 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 Physical Exam 2 Const: COMMON NORMALS: no acute distress, patient oriented x3, alert and well nourished GENERAL APPEARANCE: cooperative and well kempt Resp: COMMON NORMALS: normal respiratory effort and clear to auscultation bilaterally AUSCULTATION: clear to auscultation bilaterally Cardio: COMMON NORMALS: regular rate and regular rhythm RATE: regular rate RHYTHM: regular rhythm Neuro: COMMON NORMALS: patient oriented x3 SENSORIUM/ORIENTATION: Yes alert Psych: COMMON NORMALS: mental status grossly normal, cooperative, normal affect, speech normal, activity/motor behavior normal, denies hallucinations, denies homicidal ideation and denies suicidal ideation APPEARANCE: Yes grossly normal and Yes well kempt ATTITUDE: Yes calm ACTIVITY/MOTOR BEHAVIOR: Yes appropriate eye contact and No psychomotor agitation SPEECH: Y es normal speech MOOD & AFFECT: Yes euthymic mood ATTENTION/CONCENTRATION: Yes attention grossly intact and Yes concentration grossly intact M JOHANNE/COGNITION: Yes memory grossly intact INSIGHT: Fair insight present (Psych) JUDGEMENT: Fair judgement present (Psych) Course 2 Consultations: Consultation #1: Dr. Lindquist-accepts to NPU once cleared medically Vital Signs: Vital signs: Vital Signs Temperature 98.7 F 08/19/24 06:00 Pulse Rate 76 08/19/24 06:00 Respiratory Rate 16 08/19/24 06:00 Blood Pressure 108/67 08/19/24 06:00 Pulse Oximetry 97 08/19/24 06:00 Oxygen Delivery Me thod Room Air 08/19/24 06:00 [facility] - Psych Medical Decision Making Patient will be admitted to NPU to Dr. Lindquist once cleared medically as she is on a 96-hour hold. Medical Records I reviewed the patient's medical records. Lab Data I reviewed the patient's lab results. 08/18/24 17:29 08/18/24 17:29 Laboratory Results WBC 4.98 10^3/uL (3.29-11.43) 08/18/24 17: RBC 4.28 10^6/uL (3.85-5.65) 08/18/24 17: Hgb 12.40 g/dL (11.27-16.99) 08/18/24 17: Hct 37.9 % (36-47) 08/18/24 17: MCV 88.6 fl (85-98) 08/18/24 17: MCH 29.0 pg (27-33) 08/18/24: MCHC 32.7 g/dL (30-55) 08/18/24: RDW 12.9 % (12.1-15.1) 08/18/24 Plt Count 208 10^3/cmm (157-399) 08/18/24: MPV 10.5 fL (7.4-10.4) H 08/18/24: Neut % (Auto) 23.9 % 08/18/24: Lymph % (Auto) 65.7 % 08/18/24: Trigg % (Auto) 6.6 % 08/18/24: Eos % (Auto) 3.0 % 08/18/24 Baso % (Auto) 0.8 % 08/18/24 Neut # (Auto) 1.19 10^3/uL (1.8-7.7) L 08/18/24 Lymph # (Auto) 3.3 10^3/uL (0.8-4.8) 08/18/24: Trigg # (Auto) 0.3 10^3/uL (0.2-0.9) 08/18/24 Eos # (Auto) 0.2 10^3/uL (0.0-0.8) 08/18/24: Baso # (Auto) 0.0 10^3/uL (0.0-0.1) 08/18/24 Nucleated RBC % (auto) 0 % 08/18/24 Nucleated RBCs # 0.0 /100WBC 08/18/24: Sodium 141 mmol/L (136-145) 08/18/24: Potassium 3.9 mmol/L (3.5-5.1) 08/18/24: Chloride 110 mmol/L (98-107) H 08/18/24 Carbon Dioxide 19 mmol/L (22-29) L 08/18/24 Anion Gap 15.9 (5-19) 08/18/24: BUN 15 mg/dL (6-20) 08/18/24: Creatinine 0.7 mg/dL (0.5-0.9) 08/18/24 17: GFR Calculation 88.6 mL/min (90-130) L 08/18/24 17: Glucose 110 mg/dL (65-115) 08/18/24 17: Calculated Osmolality 293 mOsm/kg (285-295) 08/18/24 17: Calcium 9.4 mg/dL (8.5-10.5) 08/18/24: Total Bilirubin 0.2 mg/dL (0.15-1.2) 08/18/24: AST 15 U/L (0-32) 08/18/24: ALT 12 U/L (0-33) 08/18/24: Alkaline Phosphatase 101 U/L (35-105) 08/18/24: Total Protein 7.3 g/dL (6.6-8.7) 08/18/24: Albumin 4.5 g/dL (3.5-5.2) 08/18/24: Globulin 2.8 g/dL (1.3-4.6) 08/18/24 17: Salicylates < 0.3 mg/dL (3-10) L 08/18/24 17:29 Urine Opiates Screen Negative ng/mL (Negative) 08/18/24 17:15 Acetaminophen < 5.0 ug/mL (10-30) L 08/18/24 17:29 Ur Barbiturates Screen Negative ng/mL (Negative) 08/18/24 17:15 Ur Phencyclidine Scrn Negative ng/mL (Negative) 08/18/24 17:15 Ur Amphetamines Screen Negative ng/mL (Negative) 08/18/24 17:15 U Benzodiazepines Scrn Negative ng/mL (Negative) 08/18/24 17:15 Urine Cocaine Screen Negative ng/mL (Negative) 08/18/24 17:15 U Marijuana (THC) Screen Negative ng/mL (Negative) 08/18/24 17:15 Ethyl Alcohol < 10 mg/dL (0-10) 08/18/24 17:29 No radiology studies performed this visit Discharge Plan Discharge Patient Disposition: Admitted As Inpatient Admit Provider: Korey Lindquist Clinical Impression: Involuntary commitment, Acute psychosis Condition: Stable Coding Level of Care Code ED 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
[2024-08-18 17:35] LABS: Basophils % 0.8 %; Eosinophils # 0.2 10^3/uL (0.0-0.8); Hematocrit 37.9 % (36-47); Lymphocytes # 3.3 10^3/uL (0.8-4.8); Lymphocytes % 65.7 %; Mean Corpuscular HGB Conc 32.7 g/dL (30-55); Mean Corpuscular Volume 88.6 fl (85-98); Mean Platelet Volume 10.5 fL (7.4-10.4); Monocytes # 0.3 10^3/uL (0.2-0.9); Monocytes % 6.6 %; Neutrophils # 1.19 10^3/uL (1.8-7.7); Neutrophils % 23.9 %; Nucleated Red Blood Cells % 0 %; Platelet Count 208 10^3/cmm (157-399); Red Blood Count 4.28 10^6/uL (3.85-5.65); Red Cell Distribution Width 12.9 % (12.1-15.1); White Blood Count 4.98 10^3/uL (3.29-11.43)
--- NOTE | 2024-08-18 17:35 | PC.NURSE ---
96 hr rights reviewed @[id number] [facility] boat officer [place]. All education reviewed with pt. Pt verbalized understanding to hold. Pt copy was left with pt @bedside. Soda was provided. No other needs at this time.
[2024-08-18 17:53] LABS: Alanine Aminotransferase 12 U/L (0-33); Albumin Level 4.5 g/dL (3.5-5.2); Alkaline Phosphatase 101 U/L (35-105); Anion Gap 15.9 (5-19); Aspartate Amino Transferase 15 U/L (0-32); Blood Urea Nitrogen 15 mg/dL (6-20); Calcium 9.4 mg/dL (8.5-10.5); Carbon Dioxide 19 mmol/L (22-29); Chloride 110 mmol/L (98-107); Globulin 2.8 g/dL (1.3-4.6); Glomerular Filtration Rate 88.6 mL/min (90-130); Glucose 110 mg/dL (65-115); Osmolality Calculated 293 mOsm/kg (285-295); Potassium 3.9 mmol/L (3.5-5.1); Sodium 141 mmol/L (136-145); Total Bilirubin 0.2 mg/dL (0.15-1.2); Total Protein 7.3 g/dL (6.6-8.7)
[2024-08-18 17:56] LABS: Acetaminophen < 5.0 ug/mL (10-30); Alcohol Level < 10 mg/dL (0-10); Salicylate < 0.3 mg/dL (3-10)
[2024-08-18 19:12] VITALS: BP 127/81; PULSE 70; RESP 18; TEMP 36.3; O2SAT 98
[2024-08-18 19:17] VITALS: BP 108/64; PULSE 70; O2SAT 98
[2024-08-18 19:41] LABS: Amphetamines Screen Urine Negative (Negative); Barbiturates Screen Urine Negative (Negative); Benzodiazepines Screen Urine Negative (Negative); Cocaine Screen Urine Negative (Negative); Opiate Screen Urine Negative (Negative); PCP Screen Urine Negative (Negative); THC Screen Urine Negative (Negative)
[2024-08-18 20:48] VITALS: BP 127/81; PULSE 70; RESP 18; TEMP 36.3; O2SAT 98
[2024-08-18] MEDS: trazodone 100 mg Tablet 200 MG PO (22:14)
[2024-08-18] MEDS: topiramate 100 mg Tablet 200 MG PO (23:17)
[2024-08-19 06:00] VITALS: BP 108/67; PULSE 76; RESP 16; TEMP 37.1; O2SAT 97
[2024-08-19] MEDS: escitalopram 10 mg Tablet PO (08:17)
[2024-08-19] MEDS: OXcarbazepine 300 mg Tablet PO (08:17)
[2024-08-19] MEDS: lamoTRIgine 100 mg Tablet 400 MG PO (11:49)
[2024-08-19] MEDS: hyDROXYzine 25 mg Capsule 50 MG PO (11:51)
--- NOTE | 2024-08-19 12:10 | PC.NURSE ---
Allergy to ketoralac. Patient reports that she takes ibuprofen at home with no issues. Talked with tyler with pharmacy who stated that, so long as patient does not have issues at home, this is fine.
[2024-08-19] MEDS: ibuprofen 600 mg Tablet PO (12:31)
[2024-08-19] MEDS: gabapentin 400 mg Capsule 1200 MG PO (12:31)
[2024-08-19 14:00] VITALS: BP 93/62; PULSE 78; RESP 16; TEMP 37; O2SAT 98
[2024-08-19] MEDS: ondansetron 4 MG Tablet PO (14:22)
[2024-08-19] MEDS: acetaminophen 325 mg Tablet 650 MG PO (14:22)
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
[2024-08-19] MEDS: topiramate 100 mg Tablet 200 MG PO (21:29)
[2024-08-19] MEDS: gabapentin 300 mg Capsule 900 MG PO (21:29)
[2024-08-19] MEDS: trazodone 100 mg Tablet 200 MG PO (21:29)
[2024-08-19 22:00] VITALS: BP 91/56; PULSE 75; RESP 17; O2SAT 96
[2024-08-20 06:00] VITALS: BP 105/66; PULSE 73; RESP 17; TEMP 36.6; O2SAT 96
[2024-08-20] MEDS: lamoTRIgine 100 mg Tablet 400 MG PO (08:24)
[2024-08-20] MEDS: gabapentin 400 mg Capsule 1200 MG PO (08:25)
[2024-08-20] MEDS: escitalopram 10 mg Tablet PO (08:25)
[2024-08-20] MEDS: OXcarbazepine 300 mg Tablet PO ×2 (08:25→17:32)
[2024-08-20] MEDS: CLONazepam 1 mg Tablet PO ×2 (08:50→21:27)
[2024-08-20] MEDS: ibuprofen 600 mg Tablet PO (12:14)
[2024-08-20 14:00] VITALS: BP 108/76; PULSE 85; RESP 17; TEMP 36.7; O2SAT 97
--- NOTE | 2024-08-20 15:36 | P.NPUPN_ITS ---
Subjective NPU 2 Subjective: 49-year-old female with a history of bip olar disorder admitted with worsening depression and allegedly suicidal ideation. The patient had denied any suicidal ideation at this time. She had reported some decline in overall functioning but stated that she was feeling much better today. She had stated having a migraine headache yesterday. She had denied any racing thoughts at this time. She had reported having struggles with low motivation and reported continued medical problems had led her to be unable to work for any period of time. She had reported some desire to consider disability due to her inability to work for long periods of time. She had been compliant and was able to attend groups. She reported no side effects from her medication regimen. Mental Status Exam 2 MSE Comments: Patient is a casually dressed white female who appeared her stated age. She was alert and oriented to person, place, time, and situation. She was pleasant and cooperative on interview. Her hygiene appeared better. There was no evidence of any abnormal involuntary motor movements, tics, or tremors appreciated. Her mood was described as depressed. Her affect was brighter today. Her speech was normal in regards to rate, rhythm, and prosody. Her thought process was linear, logical and goal-directed. Her thought content showed no evidence of homicidal or suicidal ideation. She did not appear to be responding internal stimuli. There was no clear evidence of delusional thinking. Her attention span appeared adequate. Her recent and remote memory were grossly intact. Her insight appeared limited. Her judgment appeared poor. Her impulse control appeared fair. Vitals/I&O/Wt Last Vital Signs Temp 98.0 F 08/20/24 14:00 Pulse 85 08/20/24 14:00 Resp 17 08/20/24 14:00 BP 108/76 08/20/24 14:00 Pulse Ox 97 08/20/24 14:00 O2 Del Method Room Air 08/20/24 06:00 Weight last 48 hrs Weight 77.111 kg Data NPU 08/18/24 17:29 08/18/24 17:29 A&P Assessment and plan (1) Bipolar affective, depress, unspec: Plan 49-year-old female with a history of bipolar disorder admitted involuntarily on affidavits from family members currently endorsing depressed mood. Previous records were reviewed and appeared to show some decline in mood since the initiation of Lexapro and the reduction in Trileptal. #1.? Engage patient in individual milieu and group therapy. #2??Klonopin 1mg at night routinely as prescribed, d/c lexapro, continue trileptal 300mg bid, lamotrigine 400mg at night, gabapentin 1200mg am, 900mg at night. #3??? Evaluate patient in the context of an involuntary hold. #4?? TO-15 minute checks? #5?? Will attempt to gather collateral information PDMP PDMP Reviewed: Not Reviewed Involuntary Hold Information 2 Hold Status: Legal Status: 96 Hour Hold Date/Time Hold Expires: 08/22/24 @ 16:50 Attestations NPU 2 Medical Necessity Statement*: Inpatient hospitalization is medically necessary and deemed to be the clinically appropriate intervention at this time. Medications will be adjusted and initiated as indicated.? The patient?s likely length of stay is 3-4 days. Coding Level of Care Code Acute Code for g Fwd Diagnoses Bipolar affective, depress, unspec F31.30
[2024-08-20 20:40] VITALS: BP 89/60; PULSE 77; RESP 18; O2SAT 96
[2024-08-20] MEDS: gabapentin 300 mg Capsule 900 MG PO (21:27)
[2024-08-20] MEDS: topiramate 100 mg Tablet 200 MG PO (21:27)
[2024-08-20] MEDS: trazodone 100 mg Tablet 200 MG PO (21:27)
[2024-08-21 06:00] VITALS: BP 109/73; PULSE 77; RESP 17; O2SAT 97
[2024-08-21] MEDS: gabapentin 400 mg Capsule 1200 MG PO (08:00)
[2024-08-21] MEDS: lamoTRIgine 100 mg Tablet 400 MG PO (08:01)
[2024-08-21] MEDS: OXcarbazepine 300 mg Tablet PO ×2 (08:01→17:59)
--- NOTE | 2024-08-21 13:56 | P.NPUPN_ITS ---
Subjective NPU 2 Subjective: 49-year-old female with a history of bip olar disorder admitted with worsening depression and allegedly suicidal ideation. The patient reported no side effects from her medication. She was pleasant and cooperative on the milieu. She had reported that she was feeling better with the medication adjustments. She had reported no recent migraine headaches. She had reported some decline in overall functioning recently and stated that she remains somewhat sad that she would need disability secondary to her medical and mental health issues. The patient had reported sleeping better when taking her Klonopin at night. She reported no history of alcohol or drug use in several years. The patient had denied any suicidal ideation at this time. Mental Status Exam 2 MSE Comments: Patient is a casually dressed white female who appeared her stated age. She was alert and oriented to person, place, time, and situation. She was pleasant and cooperative on interview. Her hygiene appeared better. There was no evidence of any abnormal involuntary motor movements, tics, or tremors appreciated. Her mood was described as better. Her affect was brighter today. Her speech was normal in regards to rate, rhythm, and prosody. Her thought process was linear, logical and goal-directed. Her thought content showed no evidence of homicidal or suicidal ideation. She did not appear to be responding internal stimuli. There was no clear evidence of delusional thinking. Her attention span appeared adequate. Her recent and remote memory were grossly intact. Her insight appeared limited. Her judgment appeared fair. Her impulse control appeared fair. Vitals/I&O/Wt Last Vital Signs Temp 98.0 F 08/20/24 14:00 Pulse 77 08/21/24 06:00 Resp 17 08/21/24 06:00 BP 109/73 08/21/24 06:00 Pulse Ox 97 08/21/24 06:00 O2 Del Method Room Air 08/20/24 06:00 Data NPU 08/18/24 17:29 08/18/24 17:29 A&P Assessment and plan (1) Bipolar affective, depress, unspec: Plan 49-year-old female with a history of bipolar disorder admitted involuntarily on affidavits from family members currently endorsing depressed mood. Previous records were reviewed and appeared to show some decline in mood since the initiation of Lexapro and the reduction in Trileptal. #1.? Engage patient in individual milieu and group therapy. #2??Klonopin 1mg at night routinely as prescribed, d/c lexapro, continue trileptal 300mg bid, lamotrigine 400mg at night, gabapentin 1200mg am, 900mg at night. #3??? Evaluate patient in the context of an involuntary hold. #4?? TO-15 minute checks? #5?? Patient likely to be discharged tommorow. PDMP PDMP Reviewed: Not Reviewed Involuntary Hold Information 2 Hold Status: Legal Status: 96 Hour Hold Date/Time Hold Expires: 08/22/24 @ 16:50 Attestations NPU 2 Medical Necessity Statement*: Inpatient hospitalization is medically necessary and deemed to be the clinically appropriate intervention at this time. Medications will be adjusted and initiated as indicated.? The patient?s likely length of stay is 1-2 days. Coding Level of Care Code Acute Code for Chg Fwd Diagnoses Bipolar affective, depress, unspec F31.30
[2024-08-21 14:00] VITALS: BP 111/71; PULSE 71; RESP 17; TEMP 36.8; O2SAT 99
[2024-08-21 19:40] VITALS: BP 109/69; PULSE 74; RESP 18; TEMP 36.6; O2SAT 98
[2024-08-21] MEDS: CLONazepam 1 mg Tablet PO (21:07)
[2024-08-21] MEDS: gabapentin 300 mg Capsule 900 MG PO (21:08)
[2024-08-21] MEDS: trazodone 50 mg Tablet PO (21:08)
[2024-08-21] MEDS: hyDROXYzine 25 mg Capsule 50 MG PO (21:08)
[2024-08-21] MEDS: topiramate 100 mg Tablet 200 MG PO (21:08)
[2024-08-22 06:00] VITALS: BP 108/75; PULSE 73; RESP 18; TEMP 37.2; O2SAT 96
[2024-08-22] MEDS: gabapentin 400 mg Capsule 1200 MG PO (09:17)
[2024-08-22] MEDS: OXcarbazepine 300 mg Tablet PO (09:17)
[2024-08-22] MEDS: lamoTRIgine 100 mg Tablet 400 MG PO (09:17)
[2024-08-22] MEDS: ibuprofen 600 mg Tablet PO (11:36)
[2024-08-22 14:00] VITALS: BP 109/79; PULSE 73; RESP 16; TEMP 36.8; O2SAT 98
[2024-08-22 15:06] VITALS: BP 109/79; PULSE 73; RESP 16; TEMP 36.8; O2SAT 98
== END 2024-08-22 15:33 | disposition home or self-care (01) | DRG 885 ==
LOC: ER 16:58 → NP 18:08
PROVIDERS: Admitting Provider Psychiatry & Neurology Psychiatry; Emergency Provider Physician Assistant; PCP Family Medicine; Visit Provider Psychiatry & Neurology Psychiatry
DX: F31.30 Bipolar disorder, current episode depressed, mild or moderate severity, unspecified (principal); F17.290 Nicotine dependence, other tobacco product, uncomplicated
CPT/HCPCS: 80053; 80306; 80307; 85025; 97150; 97165; 99285; J9999; Q0162

== ENCOUNTER → 2024-09-22 14:11 | Outpatient (BNVA) | payer OTHER, SELFPAY | PROVIDERS: PCP Family Medicine; Visit Provider Nurse Practitioner Psychiatric/Mental Health | DX: F31.81 Bipolar II disorder (principal) | CPT/HCPCS: 80061; 83036 ==

== ENCOUNTER → 2025-01-06 13:57 | Outpatient (BNVA) | payer MEDICAID, SELFPAY ==
[2024-09-25 13:54] VITALS: BP 115/81
[2024-09-25 13:58] VITALS: BMI 23.7
== END ==
PROVIDERS: PCP Family Medicine; Visit Provider Family Medicine
DX: R10.9 Unspecified abdominal pain (principal)
CPT/HCPCS: 81000; 87086

== ENCOUNTER 2025-01-14 13:18 | Outpatient (CLI) | payer MEDICAID, SELFPAY ==
[2024-09-25 13:54] VITALS: BP 115/81
[2024-09-25 13:58] VITALS: BMI 23.7
--- NOTE | 2025-01-14 13:30 | CT_ITS ---
WS: [id number] CT ABDOMEN PELVIS TECHNIQUE: Noncontrast CT of the abdomen and pelvis with coronal and sagittal reformatted images. CLINICAL INFORMATION: left flank pain; hx of kidney stones COMPARISON: 2022 DLP: 331.[address] scans at [facility] use at least one of these dose optimization techniques: automated exposure control; mA and/or kV adjustment per patient size (includes targeted exams where dose is matched to clinical indication); or iterative reconstruction. FINDINGS: Lung bases are well aerated. Normal noncontrast liver. Cholecystectomy clips. Incidental splenic cyst or hemangioma appears smaller compared to previous measuring 1.2 cm. Normal noncontrast pancreas. Adrenal glands are normal. No hydronephrosis in either kidney. Bilateral nonobstructing calyceal tip calculi bilaterally. Stable small exophytic LEFT renal cyst measuring 10 mm. RIGHT BANDAR degrades images in the pelvis. Normal caliber abdominal aorta. Aortic calcification. Sigmoid constipation. Prior hysterectomy and appendectomy. CT/CT kidney stone 28746 IMPRESSION: 1. No hydronephrosis in either kidney. 2. No obstructing renal or ureteral calculi. Images in the pelvis degraded due to RIGHT BANDAR. 3. Prior appendectomy and hysterectomy. 4. Splenic cyst or hemangioma measuring 12 mm appears decreased in size compar ed to previous. 5. Prior cholecystectomy. This is new compared to previous. 6. No other acute findings.
== END 2025-01-14 13:19 | disposition home or self-care (01) ==
LOC: RAD 13:19
PROVIDERS: PCP Family Medicine; Visit Provider Family Medicine
DX: K59.00 Constipation, unspecified (principal); Z87.442 Personal history of urinary calculi; D73.4 Cyst of spleen; N28.1 Cyst of kidney, acquired; Z90.710 Acquired absence of both cervix and uterus; Z90.49 Acquired absence of other specified parts of digestive tract
CPT/HCPCS: 74176

== ENCOUNTER → 2025-01-26 16:15 | Outpatient (BNVA) | payer MEDICAID, SELFPAY ==
[2024-09-25 13:54] VITALS: BP 115/81
[2024-09-25 13:58] VITALS: BMI 23.7
== END ==
PROVIDERS: PCP Family Medicine; Visit Provider Nurse Practitioner Psychiatric/Mental Health
DX: Z51.81 Encounter for therapeutic drug level monitoring (principal)
CPT/HCPCS: 80183

== ENCOUNTER 2025-02-16 10:08 | Observation (INO) | payer MEDICAID, SELFPAY ==
[2024-09-25 13:54] VITALS: BP 115/81
[2024-09-25 13:58] VITALS: BMI 23.7
[2025-02-16] VITALS (13 sets, daily range): BP systolic 96–130; BP diastolic 64–90; PULSE 68–93; RESP 16; TEMP 36.6–36.7; O2SAT 94–100; BMI 27.3
--- NOTE | 2025-02-16 10:22 | CT_ITS ---
WS: [id number] CT HEAD NONCONTRAST HISTORY: AMS TECHNIQUE: Contiguous axial imaging performed through the brain. Bone and soft tissue windows. Sagittal and coronal reformats reviewed. All CT scans at [facility] use at least one of these dose optimization techniques: automated exposure control; mA and/or kV adjustment per patient size (includes targeted exams where dose is matched to clinical indication); or iterative reconstruction. DLP: 1081.27 mGy.cm COMPARISON: 08/05/2023 No acute intracranial hemorrhage, midline shift or mass effect. No atrophy or prior infarcts or herniation. Ventricles: Normal size with no hydrocephalus. No inferior displacement of the cerebellar tonsils. Paranasal sinuses: As visualized are clear. Mastoid air cells: Well pneumatized. Calvarium and scalp: Skull is intact with no soft tissue edema or swelling. CT/CT head wo con* [id number] IMPRESSION: 1. No acute intracranial hemorrhage or edema. 2. Unremarkable noncontrast CT head.
--- NOTE | 2025-02-16 10:25 | W.ED.AMS ---
HPI - Altered Mental Status General: Chief Complaint: Altered Mental Status Stated Complaint: seizure like activity Time Seen by Provider: 02/16/25 10:14 History of Present Illness: 49-year-old female who presents to the emergency room with complaints of being confused and disoriented. In the nurses notes it said that she had seizure-like activity I had seen the patient in another room with her son, had not noted any seizure-like activity. When she first arrived with her son that she was normal gave history was interacting normally ambulating normal. The nurse later out of the department she stated she had to get her medication when she came back she was severely altered and had a difficult time even walking she had initially walked out of the department without any assistance when she returned she actually required a wheelchair to get to the room and when I got into talk to the patient she was unable to stand independently nearly fell it to catch her and lowered her to a chair. We were ultimately able to get her to convince to to register to be seen. She denies taking or using any medications. She states she has bipolar. She is on several different medications including clonazepam Lamictal topiramate oxcarbazepine. She does not have any lateralizing symptoms. Related Data Previous Rx's ?Medication ?Instructions ?Recorded topiramate 200 mg tablet 200 mg PO QPM #90 tabs 09/24/24 clonazepam 1 mg tablet 1 mg PO DAILY PRN anxiety or panic 01/26/25 #30 tabs lamotrigine 200 mg tablet 400 mg (2 x 200 mg) PO QDAY #60 01/26/25 tabs oxcarbazepine 300 mg tablet 300 mg PO BID 30 days #60 tabs 01/26/25 trazodone 100 mg tablet 200 mg (2 x 100 mg) PO BEDTIME PRN 01/26/25 insomnia #60 tabs gabapentin 300 mg capsule See Rx Instructions .Route 02/16/25 .COMPLEX #210 caps Allergies Allergy/AdvReac Type Severity Reaction Status Date / Time Sulfa (Sulfonamide Allergy Severe closed Verified 01/26/25 15:17 Antibiotics) throat haloperidol (From Haldol) Allergy Intermediate increased Verified 01/26/25 15:17 anxiety levofloxacin (From Levaquin) Allergy Intermediate hives Verified 01/26/25 15:17 ketorolac (From Toradol) Allergy ALGY-Swell Verified 01/26/25 15:17 Lip/Tongue/Throat metoclopramide (From Reglan) Allergy ALGY-Swell Verified 01/26/25 15:17 Lip/Tongue/Throat morphine Allergy ADR-Itching Verified 01/26/25 15:17 Review of Systems Const: Denies: fever(s) or chills Card: Denies: chest pain Resp: Denies: dyspnea GI: Denies: abdominal pain : Denies: dysuria, urinary frequency or urinary urgency Musc: Denies: neck pain or back pain Skin/Breast: Denies: rash PFSH ED PFSH: Medical History Involuntary commitment Prediabetes Nicotine use disorder Acne rosacea Psychiatric care Osteonecrosis of hip Bipolar disorder Migraines Surgical History Hx of cholecystectomy S/P colonoscopic polypectomy 10.23.23 at [facility]--polyps--repeat 5 yrs Hx of bilateral inguinal hernia repair Hx of section x1 History of appendectomy S/P hysterectomy with oophorectomy BSO; done for endometriosis; no cancer H/O shoulder replacement R shoulder Hx of breast biopsy left; it was benign History of surgery of head excision of forehead cyst History of hip replacement, total right Family History Other Diabetes Hypertension Social History Smoking and tobacco/nicotine status: former use of tobacco/nicotine Quit status (tobacco/nicotine): has quit using Alcohol intake: former Substance/Drug Use: never Additional social history: vapes now Lives independently: No Household members: other Details: parents Housing: House Marital status: Number of children: 1 Highest education level completed: Associate Degree: Academic Program Current occupational status: previously employed 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; 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 Pets and animals: Yes Pets & animals: dog(s) Leisure activites: art and reading Sexually active: No Do you think of yourself as: Straight/Heterosexual Current gender identity: Female Yanely/Voodoo: Pentec[employer]al Special yanely needs: No Agree to transfusion: Yes Female Reproductive History: Para: 1 Physical Exam Const: GENERAL APPEARANCE: cooperative ORIENTATION/CONSCIOUSNESS: Yes awake HENMT: COMMON NORMALS: normocephalic, atraumatic and hearing grossly normal bilaterally HEAD & SCALP: normocephalic and atraumatic OTHER: Bilateral nystagmus noted worse to the left than the right Resp: COMMON NORMALS: normal respiratory effort, No retractions, No use of accessory muscles and clear to auscultation bilaterally AUSCULTATION: clear to auscultation bilaterally Cardio: COMMON NORMALS: regular rate, regular rhythm and No murmurs present (Cardio) RATE: regular rate RHYTHM: regular rhythm GI: COMMON NORMALS: Soft to palpation and No hepatosplenomegaly present AUSCULTATION: Yes normoactive bowel sounds PALPATION: Yes Soft to palpation, No Tenderness to palpation present (GI), No Guarding due to palpation present (GI) and Yes No hepatosplenomegaly present Extremity: COMMON NORMALS: normal to inspection, capillary refill normal, no clubbing, cyanosis or edema, no calf tenderness and no pedal edema Neuro: OTHER: Inconsistent exam no visual field deficits ataxia in both upper extremities and in the left lower extremity. Sensation normal. Speech unchanged. Skin: COMMON NORMALS: no rashes or lesions noted GENERAL SKIN EXAM: no rashes or lesions noted Course Vital Signs: Vital signs: Vital Signs Temperature 98.1 F 02/16/25 10:17 Pulse Rate 68 02/16/25 15:00 Respiratory Rate 16 02/16/25 15:00 Blood Pressure 113/80 02/16/25 15:00 Pulse Oximetry 100 02/16/25 15:00 Oxygen Delivery Me thod Room Air 02/16/25 15:00 MDM - Altered Mental Status Medical Decision Making Patient had some change after she left the department. She states she took her medications out in the car. There is report of seizure-like activity I did not witness any other at this. Neuroexam inconsistent for stroke CT head CTA head and neck negative. I was reexamining the patient seemed at her baseline she has not been throwing up but she has complained of nausea and dizziness. Shortly after that patient was able to sit up in bed to find a lever release for the rail put the rail down and tried to get out of bed she fell as she tried to get out of bed hit her head and has a large hematoma now. Repeat CT of the head and neck are negative. Discussed with the hospitalist will get MRI lactic acid and CPK are pending as well. She has been given Ativan for the dizziness. She did not had any vomiting to this point. NIH was done but is very inconsistent left to right. Other possibilities include anxiety or mental health issue, BPPV, toxidrome. Stroke would be a possibility but with the other complicating factors and inconsistent NIH seems unlikely at this point discussed Dr. Pritchard where he is doing MRI to rule out. Medical Records I reviewed the patient's medical records. Lab Data I reviewed the patient's lab results. 02/16/25 10:48 02/16/25 10:48 Radiology Impressions Head/Neck CTA 02/16/25 12:25 IMPRESSION: 1. Normal carotid arteries. 2. Unremarkable [place]. 3. No arterial occlusions or aneurysms in the [place]. Head CT 02/16/25 14:32 IMPRESSION: 1. New acute RIGHT scalp hematoma centered towards the RIGHT frontal vertex. 2. No skull fracture. 3. No acute intracranial blood identified. Small acute hemorrhages may be obscured by the recent contrast injection. Cervical Spine CT 02/16/25 14:33 IMPRESSION: 1. No acute cervical spine fracture. 2. Facet joint arthritis. 3. No high-grade central or foraminal stenosis. Laboratory Results WBC 5.12 10^3/uL (3.29-11.43) 02/16/25 10:48 RBC 3.99 10^6/uL (3.85-5.65) 02/16/25 10:48 Hgb 11.90 g/dL (11.27-16.99) 02/16/25 10:48 Hct 34.9 % (36-47) L 02/16/25 10:48 MCV 87.5 fl (85-98) 02/16/25 10:48 MCH 29.8 pg (27-33) 02/16/25 10:48 MCHC 34.1 g/dL (30-55) 02/16/25 10:48 RDW 12.5 % (12.1-15.1) 02/16/25 10:48 Plt Count 188 10^3/cmm (157-399) 02/16/25 10:48 MPV 9.7 fL (7.4-10.4) 02/16/25 10:48 Neut % (Auto) 31.2 % 02/16/25 10:48 Lymph % (Auto) 61.5 % 02/16/25 10:48 [place] % (Auto) 5.5 % 02/16/25 10:48 Eos % (Auto) 1.2 % 02/16/25 10:48 Baso % (Auto) 0.4 % 02/16/25 10:48 Neut # (Auto) 1.60 10^3/uL (1.8-7.7) L 02/16/25 10:48 Lymph # (Auto) 3.2 10^3/uL (0.8-4.8) 02/16/25 10:48 [place] # (Auto) 0.3 10^3/uL (0.2-0.9) 02/16/25 10:48 Eos # (Auto) 0.1 10^3/uL (0.0-0.8) 02/16/25 10:48 Baso # (Auto) 0.0 10^3/uL (0.0-0.1) 02/16/25 10:48 Nucleated RBC % (auto) 0 % 02/16/25 10:48 Nucleated RBCs # 0.0 /100WBC 02/16/25 10:48 Sodium 138 mmol/L (136-145) 02/16/25 10:48 Potassium 3.7 mmol/L (3.5-5.1) 02/16/25 10:48 Chloride 106 mmol/L (98-107) 02/16/25 10:48 Carbon Dioxide 21 mmol/L (22-29) L 02/16/25 10:48 Anion Gap 14.7 (5-19) 02/16/25 10:48 BUN 13 mg/dL (6-20) 02/16/25 10:48 Creatinine 0.7 mg/dL (0.5-0.9) 02/16/25 10:48 GFR Calculation 88.6 mL/min (90-130) L 02/16/25 10:48 Glucose 107 mg/dL (65-115) 02/16/25 10:48 Calculated Osmolality 287 mOsm/kg (285-295) 02/16/25 10:48 Calcium 9.1 mg/dL (8.5-10.5) 02/16/25 10:48 Magnesium 2.0 mg/dL (1.7-2.3) 02/16/25 10:48 Total Bilirubin 0.3 mg/dL (0.15-1.2) 02/16/25 10:48 AST 14 U/L (0-32) 02/16/25 10:48 ALT 12 U/L (0-33) 02/16/25 10:48 Alkaline Phosphatase 100 U/L (35-105) 02/16/25 10:48 Total Protein 7.4 g/dL (6.6-8.7) 02/16/25 10:48 Albumin 4.4 g/dL (3.5-5.2) 02/16/25 10:48 Globulin 3.0 g/dL (1.3-4.6) 02/16/25 10:48 Urine Color Yellow (Yellow) 02/16/25 10:40 Urine Appearance Clear (CLEAR) 02/16/25 10:40 Urine pH 6.0 (5-7) 02/16/25 10:40 Ur Specific [place] 1.019 (1.005-1.030) 02/16/25 10:40 Urine Protein Trace (Negative) A 02/16/25 10:40 Urine Glucose (UA) Negative (Normal) 02/16/25 10:40 Urine Ketones Negative (Negative) 02/16/25 10:40 Urine Blood Negative (Negative) 02/16/25 10:40 Urine Nitrate Negative (Negative) 02/16/25 10:40 Urine Bilirubin Negative (Negative) 02/16/25 10:40 Urine Urobilinogen 0.2 mg/dL (Negative) 02/16/25 10:40 Ur Leukocyte Esterase Negative (Negative) 02/16/25 10:40 Urine RBC 0-2 /hpf (0-2) 02/16/25 10:40 Urine WBC 0-5 /hpf (0-5) 02/16/25 10:40 Ur Squamous Epith Cells 0-5 /hpf (0-5) 02/16/25 10:40 Amorphous Sediment Not Reportable 02/16/25 10:40 Urine Bacteria None seen /hpf (NONE) 02/16/25 10:40 Hyaline Casts 0.40 /lpf 02/16/25 10:40 Salicylates < 0.3 mg/dL (3-10) L 02/16/25 10:48 Urine Opiates Screen Negative ng/mL (Negative) 02/16/25 10:40 Acetaminophen < 5.0 ug/mL (10-30) L 02/16/25 10:48 Ur Barbiturates Screen Negative ng/mL (Negative) 02/16/25 10:40 Ur Phencyclidine Scrn Negative ng/mL (Negative) 02/16/25 10:40 Ur Amphetamines Screen Negative ng/mL (Negative) 02/16/25 10:40 U Benzodiazepines Scrn Negative ng/mL (Negative) 02/16/25 10:40 Urine Cocaine Screen Negative ng/mL (Negative) 02/16/25 10:40 U Marijuana (THC) Screen Negative ng/mL (Negative) 02/16/25 10:40 Ethyl Alcohol < 10 mg/dL (0-10) 02/16/25 10:48 All radiology interpretation(s) finalized by discharge Discharge Plan Discharge Patient Disposition: Placed in Observation Clinical Impression: Dizziness, Closed head injury, Fall Coding Level of Care Code ED [employer] NIH stroke score NIHSS Level Of Consciousness - 1a: 0 Level Of Consciousness Questions - 1b: Both Correct Level Of Consciousness Commands - 1c: Both Correct Best Gaze - 2: Normal Visual Bal - 3: No Visual Loss Facial Palsy - 4: Normal Motor Arm Right - 5: No Drift Motor Arm Left - 5: No Drift Motor Leg Right - 6: No Drift Motor Leg Left - 6: No Drift Limb Ataxia - 7: Present In Two Limbs Sensory - 8: Normal Best Language - 9: No Aphasia Dysarthia - 10: Normal Extinction And Inattention - 11: 0 Score Total Score: 2
--- OUTSIDE RECORDS SUMMARY | 2025-02-16 10:39 | XMS_ITS | Clinical Summary ---
Author Organization [facility] Address [address] [place] [address] Phone Care Team Providers Care Bit Sharpener Name Role Phone Unavailable Primary Care Provider Unavailabl e Allergies Active Allergy Reactions Criticality Noted Date Comments Haloperidol Anxiety Medium 10/19/2021 Increased anxiety Ketorolac Swelling Low 10/19/2021 Swelling lip, tongue, throat Levofloxacin Hives High 10/19/2021 Metoclopramide Swelling Low 10/19/2021 Swelling lip, tongue, throat Morphine Itching Low 12/01/2021 Sulfa (Sulfonamide Antibiotics) Other (See Comments) High 10/19/2021 Closed throat Medications clonazePAM (KlonoPIN) 0.5 mg Tablet TAKE 1 TABLET BY MOUTH TWICE DAILY at least SIX hours APART if needed FOR anxiety 4 Active gabapentin (NEURONTIN) 300 mg capsule Take 4 capsules BY MOUTH EVERY MORNING AND THREE AT NIGHT 4 Active lamoTRIgine (LaMICtal) 200 mg tablet take 2 tablets by mouth every day at bedtime 4 Active omeprazole (PriLOSEC) 40 mg Capsule, Delayed Release(E.C.) Take 1 Capsule by mouth 2 times daily. 4 Active OXcarbazepine (TRILEPTAL) 300 mg tablet Take 1 Tablet by mouth 2 times daily. 4 Active topiramate (TOPAMAX) 200 mg tablet Take 200 mg by mouth daily at bedtime. 4 Active traZODone (DESYREL) 100 mg tablet take 2 tablets by mouth at bedtime 4 Active dicyclomine (BENTYL) 10 mg capsule Take 2 Capsules (20 mg) by mouth 4 times daily. 30 Capsule 4 Active Additional Information Patient taking differently:20 mg OralTWO TIMES DAILY, Reported on 02/15/2024 ondansetron (ZOFRAN ODT) 8 mg Tablet, Rapid Dissolve Take 8 mg by mouth every 8 hours as needed for Nausea/Emesis. Dissolve 1 tablet on top of tongue then swallow with saliva every 8 hours as needed for nausea or vomiting Active HYDROcodone-kasey taminophen (NORCO) 7.5-325 mg TabletIndicatio ns:Post-op pain Take 1 Tablet by mouth every 4 hours as needed for Pain. Max Daily Amount: 6 Tablets 15 Tablet 02/20/2024 12:52 PM CDT 4 Active ondansetron (ZOFRAN ODT) 4 mg Tablet, Rapid Dissolve Take 1 Tablet (4 mg) by mouth every 6 hours as needed for Nausea/Emesis. Dissolve tablet on top of tongue, then swallow with saliva. 10 Tablet 02/20/2024 12:52 PM CDT 4 Active Active Problems Problem Noted Date Diagnosed Date Epigastric abdominal pain 10/25/2023 Mood disorder 10/25/2023 Odynophagia 10/25/2023 Esophageal pain 10/25/2023 Overview (10/25/2023): Secondary to foreign body (GI capsule) Encounters Date Type Department Care Team Description 01/21/2025 External Device Data ST[facility] ABSTRACTION Provider, Abstract 12/17/2024 External Device Data ST[facility] ABSTRACTION Provider, Abstract from Last 3 Months Family History Medical History Relation Name Comments Diabetes Father Jamaal Weinberg Diabetes Mother Olena Weinberg Colon Cancer Neg Hx Relation Name Status Comments Father Jamaal Cartagenauser Mother Olena Weinberg Social History Tobacco Use Types Packs/Day Years Used Date Smoking Tobacco: Former Cigarettes 2012 Smokeless Tobacco: Never Tobacco Cessation:Counseling Given: Not Answered Alcohol Use Standard Drinks/Week Comments Not Currently 0 (1 standard drink = 0.6 oz pur e alcohol) Feeling Safe Answer Date Recorded Are you in a relationship wi th someone who hurts you emotionally and/or physically? No 02/15/2024 Food Insecurity Answer Date Recorded Patient needs follow up regardin 10/08/2024 Transportation Needs Answer Date Record ed Patient needs follow up regardin 10/08/2024 Housing Stability Answer Date Recorded Social/Environmental Concerns No concerns Utility Needs Answer Date Recorded Patient needs follow up regardin 10/08/2024 Comments No Sex and Gender Information Value Date Recorded Sex Assigned at Female 02/13/2024 9:11 AM CDT Legal Sex Female 3:01 PM [employer] Gender Identity Female 02/13/2024 9:11 AM CDT Sexual Orientation Straight 02/13/2024 9: 11 AM CDT Last Filed Vital Signs Vital Sign Reading Time Taken Comments Blood Pressure 134/75 02/20/2024 12:04 PM CDT Pulse 68 02/20/2024 12:04 PM CDT Temperature 36.3 C (97.3 F) 02/20/2024 11:33 AM CDT Respiratory Rate 16 02/20/2024 12:04 PM CDT Oxygen Saturation 100% 02/20/2024 12:04 PM CDT Inhaled Oxygen Concentration - - Weight 71.4 kg (157 lb 6.5 oz) 02/20/2024 6:07 A M CDT Height 172.7 cm (5' 8 ) 02/20/2024 6:07 AM CDT Body Mass Index 23.93 02/20/2024 6:07 AM CDT Plan of Treatment Health Maintenance Due Date Last Done Comments DTAP/TDAP/TD VACCINES (1 - Tdap) 1993 HEPATITIS B VACCINES (1 of 3 - 19+ 3-dose series) 1993 HPV/Cotest (21-29) 1995 CERVICAL CANCER SCREENING 2004 HPV/Cotest (30-65) 2004 PAP SMEAR 2004 BREAST CANCER SCREENING 2014 FIT-DNA Q 3 years 2019 FIT/FOBT Q 1 year 2019 Flex Sig/CT Colonography Q 5 years 2019 ZOSTER VACCINE (1 of 2) 2024 INFLUENZA VACCINE (#1) 2025 COLORECTAL SCREENING 10/22/2030 10/23/2023, 10/23/19 24 Colorectal Cancer Screening 10/22/2030 Medical Devices Implanted Type Area Revenue Collector Device Identifier Shelf Expiration Date Model / Serial / Lot Clip Crtg Med/Lrg 1112 - [id number] Implanted:Qty: 1 on 02/20/2024 by Abner Covarrubias DO at [facility] Clip N/A: Abdomen [employer] [id number] 10/29/2028 1112 / / [id number] Procedures Procedure Name Priority Date/Time Associated Diagnosis Comments COLONOSCOPY REPORT 10/23/2023 2: 55 PM CDT from Last 3 Months or Most Recently Relevant to Health Maintenance Results * COLONOSCOPY REPORT (10/23/2023 2:55 PM CDT) Narrative Procedure Note Carlos Maldonado MD - 10/23/2023 2:55 PM CDT [facility] GI Patient Name: Re Weinberg Procedure Date: 10/23/2023 Date of : 1975 Admit Type: Outpatient Age: 48 Attending MD: Carlos Maldonado , , Procedure: Colonoscopy Indications: High risk colon cancer surveillance: Personal history of colonic polyps Providers: Carlos Maldonado Referring MD: Medicines: Monitored Anesthesia Care Complications: No immediate complications. Procedure: After I obtained informed consent, the scope was passed under direct vision. Throughout the procedure, the patient's blood pressure, pulse, and oxygen saturations were monitored continuously. The Colonoscope was introduced through the anus and advanced to the terminal ileum, with identification of the appendiceal orifice and IC valve. The colonoscopy was somewhat difficult due to a tortuous colon. The patient tolerated the procedure well. The quality of the bowel preparation was evaluated using the BBPS ([place] Bowel Preparation Scale) with scores of: Right Colon = 3, Transverse Colon = 3 and Left Colon = 3 (entire mucosa seen well with no residual staining, small fragments of stool or opaque liquid). The total BBPS score equals 9. Estimated Blood Loss: Estimated blood loss was minimal. Findings: A 4 mm polyp was found in the ascending colon. The polyp was sessile. The polyp was removed with a cold snare. Resection and retrieval were complete. The exam was otherwise without abnormality on direct and retroflexion views. Impression: - One 4 mm polyp in the ascending colon, removed with a cold snare. Resected and retrieved. - The examination was otherwise normal on direct and retroflexion views. Recommendation: - Await pathology results. Would probably use a peds scope Carlos Maldonado, 10/23/2023 2:55:17 PM Number of Addenda: 0 Note Initiated On: 10/23/2023 1:33 PM Scope Withdrawal Time 0 hours 6 minutes 31 seconds Scope In: 2:37:59 PM Scope Out: 2:53:55 PM [address] [place], [place] Carlos Maldonado MD GI PROCEDURE ORDERABLES Final Result from Last 3 Months or Most Recently Relevant to Health Maintenance Insurance [facility] [id number] RX INFOCROSSING Medicaid Advance Directives For more information, please contact: [phone] * Full Code (Latest Code Status on File) Date Activated Date Inactivated Comments 10/24/2023 10:16 PM 10/25/2023 11:11 PM * Full Code Date Activated Date Inactivated Comments 10/23/2023 1:33 PM 10/23/2023 5:57 PM
[2025-02-16 11:00] LABS: Glucose Urine UA Negative (Normal); Nitrate Urine Negative (Negative); Specific Gravity, Urine 1.019 (1.005-1.030)
[2025-02-16 11:00] LABS: Hematocrit 34.9 % (36-47); Hemoglobin 11.90 g/dL (11.27-16.99); Mean Corpuscular HGB Conc 34.1 g/dL (30-55); Mean Corpuscular Hemoglobin 29.8 pg (27-33); Mean Corpuscular Volume 87.5 fl (85-98); Nucleated Red Blood Cells % 0 %; Platelet Count 188 10^3/cmm (157-399); Red Blood Count 3.99 10^6/uL (3.85-5.65); White Blood Count 5.12 10^3/uL (3.29-11.43)
[2025-02-16 11:06] LABS: Add Urine Microscopic? YES
[2025-02-16 11:07] LABS: PCP Screen Urine Negative (Negative)
[2025-02-16 11:17] LABS: Alanine Aminotransferase 12 U/L (0-33); Albumin Level 4.4 g/dL (3.5-5.2); Alkaline Phosphatase 100 U/L (35-105); Anion Gap 14.7 (5-19); Aspartate Amino Transferase 14 U/L (0-32); Blood Urea Nitrogen 13 mg/dL (6-20); Calcium 9.1 mg/dL (8.5-10.5); Carbon Dioxide 21 mmol/L (22-29); Chloride 106 mmol/L (98-107); Creatinine Clr Calc Pharmacy 107.7660; Globulin 3.0 g/dL (1.3-4.6); Glucose 107 mg/dL (65-115); Magnesium 2.0 mg/dL (1.7-2.3); Osmolality Calculated 287 mOsm/kg (285-295); Potassium 3.7 mmol/L (3.5-5.1); Sodium 138 mmol/L (136-145); Total Protein 7.4 g/dL (6.6-8.7)
[2025-02-16 11:19] LABS: Acetaminophen < 5.0 ug/mL (10-30); Alcohol Level < 10 mg/dL (0-10); Salicylate < 0.3 mg/dL (3-10)
[2025-02-16 11:59] LABS: UA Slide Review UA Slide Review Perf
--- NOTE | 2025-02-16 12:25 | CT_ITS ---
WS: [id number] CT ANGIOGRAM CEREBRAL AND CAROTID ARTERIES HISTORY: dizzyness TECHNIQUE: CT angiogram is performed of the carotid and cerebral arteries. During arterial injection imaging is obtained from the skull vertex to the aortic arch in 1.25 mm imaging. Coronal and sagittal reformats are submitted. Additional multi planar reformats of the carotid and cerebral arteries are submitted, MIP imaging also reviewed. NASCET criteria utilized. All CT scans at [facility] use at least one of these dose optimization techniques: automated exposure control; mA and/or kV adjustment per patient size (includes targeted exams where dose is matched to clinical indication); or iterative reconstruction. CONTRAST: Omnipaque 350; 100 mL IV. DLP: 715.82 mGy.cm COMPARISON: None available. Carotid Angiogram: Right carotid: Common carotid artery: Arises normally from the innominate artery. No significant plaque or stenosis. Internal carotid artery: No plaque or stenosis. External carotid artery: Patent. Left carotid: Common carotid artery: Arises normally from the aorta. No significant plaque or stenosis. Internal carotid artery: No plaque or stenosis. External carotid artery: Patent. Right vertebral artery: Unremarkable. Left vertebral artery: Unremarkable. Arises normally from the subclavian artery. Subclavian arteries: No stenosis or significant abnormality. Upper thorax: Normal. Thyroid gland: Tiny bilateral thyroid nodules. Osseous structures: Unremarkable. CEREBRAL ANGIOGRAM: Intracranial vertebral arteries: Normal with no significant atherosclerosis. Basilar artery: No significant stenosis or occlusion. No aneurysm. Intracranial Internal carotid arteries: Demonstrates no significant stenosis or plaque. Middle cerebral arteries: Normal. Anterior cerebral arteries and ACOM: Normal. Posterior cerebral arteries and PCOM's: Normal. Dural venous sinuses are normally enhancing. Mastoid air cells: Normal. Paranasal sinuses: Normal. Calvarium: Hyperostosis frontalis interna. CT/CT angio headneck* [id number] IMPRESSION: 1. Normal carotid arteries. 2. Unremarkable tolowa dee-ni' of [place]. 3. No arterial occlusions or aneurysms in the tolowa dee-ni' of Geller.
--- NOTE | 2025-02-16 12:32 | ECG_ITS ---
[facility] 2025-02-16 Pat Name: Re Weinberg Department: Room: Gender: Female Fingerprint Expert: : 1975 Requested By: Rafael Sanchez Order Number: [id number] Rylan MD: Flor Salas M.D. Measurements Intervals Fletcher Rate: 77 P: 61 ME: 190 QRS: 36 QRSD: 95 T: 12 QT: 381 QTc: 432 Interpretive Statements SINUS RHYTHM NONSPECIFIC ST & T-WAVE ABNORMALITY Compared to ECG 01/03/2023 19:34:46 Possible ischemia no longer present T-wave abnormality still present Electronically Signed On 02-17-2025 08:00:52 CDT by Flor Salas M.D. [email or web address]
[2025-02-16] MEDS: iohexol 350 mg/mL 500 mL Btl (per mL) IV (13:42)
--- NOTE | 2025-02-16 14:29 | MRR_ITS ---
PROCEDURE INFORMATION: Exam: MR Head Without Contrast Exam date and time: 02/16/2025 4:10 PM Age: 49 years old Clinical indication: Injury or trauma; Fall; Blunt trauma (contusions or hematomas); Injury details: Went to get out of bed without nursing staff. PT fell hitting head. Large hematoma across the hairline. ; Additional info: Assess for posterior circulation stroke TECHNIQUE: Imaging protocol: Magnetic resonance imaging of the head without contrast. COMPARISON: CT head wo con* [id number] 02/16/2025 2:44 PM FINDINGS: Brain: Ventricles and sulci appear within normal limits for patient age. White matter unremarkable. No evidence of acute intracranial hemorrhage or mass. No evidence of recent infarct.. Cerebral ventricles: Normal. No ventriculomegaly. Bones: Unremarkable. Paranasal sinuses: Normal as visualized. No acute sinusitis. Mastoid air cells: Normal as visualized. No mastoid effusion. Orbital cavities: Unremarkable. Soft tissues: Right frontal scalp hematoma measuring 0.9 cm in thickness and 5.9 cm in transverse diameter. MR/MR head wo con* [id number] IMPRESSION: 1. No acute appearing intracranial abnormality. 2. Right frontal scalp hematoma.
--- NOTE | 2025-02-16 14:32 | CT_ITS ---
WS: [id number] CT HEAD NONCONTRAST HISTORY: Trauma, recent fall since the prior CT earlier today. TECHNIQUE: Contiguous axial imaging performed through the brain. Bone and soft tissue windows. Sagittal and coronal reformats reviewed. All CT scans at [facility] use at least one of these dose optimization techniques: automated exposure control; mA and/or kV adjustment per patient size (includes targeted exams where dose is matched to clinical indication); or iterative reconstruction. DLP: 1320.20 mGy.cm COMPARISON: 02/16/2025 at 11:10 a.m. No acute intracranial hemorrhage identified. This examination is post contrast for prior CT angiogram therefore there is some enhancement related to the recent injection. Small areas of hemorrhage would be obscured. There is no mass effect or midline shift. No atrophy or prior infarcts or herniation. Ventricles: Normal size with no hydrocephalus. Paranasal sinuses: As visualized are clear. Mastoid air cells: Well pneumatized. Calvarium and scalp: No fracture. New since the prior examination is a large scalp hematoma with increased density centered towards the RIGHT frontal vertex measuring 5.1 x 3.[address]/CT head wo con* [id number] IMPRESSION: 1. New acute RIGHT scalp hematoma centered towards the RIGHT frontal vertex. 2. No skull fracture. 3. No acute intracranial blood identified. Small acute hemorrhages may be obsc ured by the recent contrast injection.
--- NOTE | 2025-02-16 14:33 | CT_ITS ---
WS: [id number] CT CERVICAL SPINE HISTORY: Trauma TECHNIQUE: Contiguous 2.0 mm axial imaging performed through the entire cervical spine. Sagittal and coronal reformats also performed. All CT scans at [facility] use at least one of these dose optimization techniques: automated exposure control; mA and/or kV adjustment per patient size (includes targeted exams where dose is matched to clinical indication); or iterative reconstruction. DLP: 1320.20 mGy.cm COMPARISON: 08/05/2023 Normal cervical alignment. Craniocervical junction, atlantodental interval and C1-C2 alignment is normal. Facet joints are normally aligned. Mild degenerative changes at the C1-C2 articulation. No acute cervical spine fracture. Facet joint arthritis is mild. No large central disc protrusions. No high-grade central or foraminal stenosis. Lung apices are not included. Paravertebral soft tissues are negative. 3 mm superficial nodule in the RIGHT parotid gland may be a small lymph node. This was also present on the study of 10/14/20[address] without increase in size. CT/CT cervical spin wo con* [id number] IMPRESSION: 1. No acute cervical spine fracture. 2. Facet joint arthritis. 3. No high-grade central or foraminal stenosis.
--- NOTE | 2025-02-16 14:34 | PC.NURSE ---
PATIENT FOUND ON FLOOR IN ROOM. PATIENT LIFTED TO BEDSIDE COMMODE. 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 PATIENT HAS LARGE HEMATOMA ACROSS HAIRLINE. DR PÉREZ NOTIFIED OF PATIENT CONDITION.
[2025-02-16] MEDS: LORazepam 1 MG/0.5 ML injection IVP (15:44)
[2025-02-16 17:15] LABS: Lactic Sepsis W/Reflex 1.8 mmol/L (0.5-2.2)
--- NOTE | 2025-02-16 18:48 | PM.HP ---
Providers/Chief Complaint Admitting Physician: Rica Pritchard MD Primary Care Provider: Rebekah Gomez MD Chief Complaint: seizure like activity History of Present Illness Re Weinberg is a 49 year old female with a past medical history of bipolar disorder, presented to the emergency room today, initially when she brought in her son for drug overdose. Her son was transferred to an outside hospital. While patient was leaving the emergency room she stated that she suddenly felt very dizzy and off balance. States she could not walk and started to fall onto 1 side to the point where she needed to be helped by the ER staff. She was also noted to have nystagmus. She was placed back in the bed and while attempting to stand up to urinate, she fell and had a laceration over her head. She denies any weakness in any extremity. Denies any recent change in her long-term medications including gabapentin clonazepam lamotrigine oxcarbazepine or topiramate. No known history of seizure disorder. She has been under stress recently related to caring for multiple people at home including her son parents and animals. Reports she has a history of intermittent dizziness however has not experienced with severe symptoms before. No vomiting. No photophobia. No fever recently. She denies any illicit substance use. Denies any alcohol consumption. CT head and CTA of the head and neck are negative today. Review of Systems General: Reports: 10 or more systems reviewed and unremarkable except in HPI and below Const: Denies: fever(s), chills or body aches Eyes: Denies: change in vision, blurry vision or photophobia ENMT: Reports: hoarseness; Denies: throat pain, enlarged tonsils, odynophagia or nasal congestion Card: Denies: chest pain, palpitations, irregular heart rhythm, edema, swelling of feet/ankles, lightheadedness, pre-syncope, dyspnea on exertion or orthopnea Resp: Denies: dyspnea, productive cough, non-productive cough, wheezing, stridor, pain on inspiration, change in phlegm color, hemoptysis or chest congestion GI: Denies: abdominal pain, nausea, vomiting, hematemesis, coffee ground emesis, dysphagia, heartburn, diarrhea, constipation, GI cramping, change in stool character, hematochezia or melena : Denies: flank pain, difficulty voiding, dysuria, urinary frequency, urinary urgency, urinary hesitancy or hematuria Musc: Denies: neck pain, back pain, extremity pain, joint swelling, joint warmth or deformity Neuro: Denies: headache(s), numbness in extremities, weakness in extremities, sensory changes, difficulty walking, frequent falls, dizziness, vertigo, behavioral changes, Slurred speech present or seizure-like activity Psych: Denies: anxiety, depression, suicidal ideation or homicidal ideation Endo: Denies: polyuria, polydipsia, tired all the time, cold intolerance or hot flashes Isaias/Lymph: Denies: easy bruising or easy bleeding Medications/Allergies Home Medications ?Medication ?Instructions ?Recorded ?Confirmed ?Last Taken ?Type topiramate 200 mg tablet 200 mg PO QPM #90 tabs 09/24/24 02/16/25 02/15/25 Rx clonazepam 1 mg tablet 1 mg PO DAILY PRN anxiety or panic 01/26/25 02/16/25 Unknown Rx #30 tabs lamotrigine 200 mg tablet 400 mg (2 x 200 mg) PO QDAY #60 01/26/25 02/16/25 02/16/25 Rx tabs oxcarbazepine 300 mg tablet 300 mg PO BID 30 days #60 tabs 01/26/25 02/16/25 02/16/25 Rx trazodone 100 mg tablet 200 mg (2 x 100 mg) PO BEDTIME PRN 01/26/25 02/16/25 02/15/25 Rx insomnia #60 tabs gabapentin 300 mg capsule See Rx Instructions .Route 02/16/25 02/16/25 02/16/25 Rx .COMPLEX #210 caps meclizine 25 mg tablet 25 mg PO TID PRN prn 30 days #0 02/17/25 Unknown Rx tabs Allergies Allergy/AdvReac Type Severity Reaction Status Date / Time Sulfa (Sulfonamide Allergy Severe closed Verified 01/26/25 15:17 Antibiotics) throat haloperidol (From Haldol) Allergy Intermediate increased Verified 01/26/25 15:17 anxiety levofloxacin (From Levaquin) Allergy Intermediate hives Verified 01/26/25 15:17 ketorolac (From Toradol) Allergy ALGY-Swell Verified 01/26/25 15:17 Lip/Tongue/Throat metoclopramide (From Reglan) Allergy ALGY-Swell Verified 01/26/25 15:17 Lip/Tongue/Throat morphine Allergy ADR-Itching Verified 01/26/25 15:17 PFSH Acute PFSH: Medical History Involuntary commitment Prediabetes Nicotine use disorder Acne rosacea Psychiatric care Osteonecrosis of hip Bipolar disorder Migraines Surgical History Hx of cholecystectomy S/P colonoscopic polypectomy 5 at [facility]--polyps--repeat 5 yrs Hx of bilateral inguinal hernia repair Hx of section x1 History of appendectomy S/P hysterectomy with oophorectomy BSO; done for endometriosis; no cancer H/O shoulder replacement R shoulder Hx of breast biopsy left; it was benign History of surgery of head excision of forehead cyst History of hip replacement, total right Family History Other Diabetes Hypertension Social History Smoking and tobacco/nicotine status: former use of tobacco/nicotine Quit status (tobacco/nicotine): has quit using Alcohol intake: former Substance/Drug Use: never Additional social history: vapes now Lives independently: No Household members: other Details: parents Housing: House Marital status: Number of children: 1 Highest education level completed: Associate Degree: Academic Program Current occupational status: previously employed 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; 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 Pets and animals: Yes Pets & animals: dog(s) Leisure activites: art and reading Sexually active: No Do you think of yourself as: Straight/Heterosexual Current gender identity: Female Yanely/Sabianist: Sikh Special yanely needs: No Agree to transfusion: Yes Female Reproductive History: Para: 1 Vitals/I&O/Wt Last Vital Signs Temp 98.1 F 02/16/25 10:17 Pulse 76 02/16/25 16:42 Resp 16 02/16/25 16:42 BP 116/83 02/16/25 16:42 Pulse Ox 97 02/16/25 16:42 O2 Del Method Room Air 02/16/25 17:02 02/16/25 02/16/25 02/16/25 06:59 14:59 22:59 Output Total 200 / 200 Balance -200 / -200 Weight last 48 hrs Weight 67.84 kg Weight 81.647 kg Physical Exam Narrative: General: No acute distress, AO x3 HEENT: PERRLA, pupils bilaterally equal and reactive, pallors not present Chest: Normal vesicular breath sounds, no added sounds, equal good air entry bilaterally CVS: S1-S2 regular, no murmurs, no tachycardia, no gallops, no rubs Abdomen: Soft, nontender, no organomegaly, bowel sounds present Neuro: No focal deficits, no facial deformity, AO x3, power 5/5 in all limbs Data 02/17/25 04:23 02/17/25 04:23 Other data: Ordering Provider/Ordering MD: Rafael Kim DO Date of Service: 02/16/25 Procedure(s): CT cervical spin wo con* [id number] Accession Number(s): [id number] Report Number: [id number] WS: [id number] CT CERVICAL SPINE HISTORY: Trauma TECHNIQUE: Contiguous 2.0 mm axial imaging performed through the entire cervical spine. Sagittal and coronal reformats also performed. All CT scans at [facility] use at least one of these dose optimization techniques: automated exposure control; mA and/or kV adjustment per patient size (includes targeted exams where dose is matched to clinical indication); or iterative reconstruction. DLP: 1320.20 mGy.cm COMPARISON: 08/05/2023 Normal cervical alignment. Craniocervical junction, atlantodental interval and C1-C2 alignment is normal. Facet joints are normally aligned. Mild degenerative changes at the C1-C2 articulation. No acute cervical spine fracture. Facet joint arthritis is mild. No large central disc protrusions. No high-grade central or foraminal stenosis. Lung apices are not included. Paravertebral soft tissues are negative. 3 mm superficial nodule in the RIGHT parotid gland may be a small lymph node. This was also present on the study of 10/14/2022 without increase in size. CT/CT cervical spin wo con* [id number] IMPRESSION: 1. No acute cervical spine fracture. 2. Facet joint arthritis. 3. No high-grade central or foraminal stenosis. rdering Provider/Ordering MD: Rafael Kim DO Date of Service: 02/16/25 Procedure(s): CT head wo con* [id number] Accession Number(s): [id number] Report Number: [id number] WS: [id number] CT HEAD NONCONTRAST HISTORY: Trauma, recent fall since the prior CT earlier today. TECHNIQUE: Contiguous axial imaging performed through the brain. Bone and soft tissue windows. Sagittal and coronal reformats reviewed. All CT scans at [facility] use at least one of these dose optimization techniques: automated exposure control; mA and/or kV adjustment per patient size (includes targeted exams where dose is matched to clinical indication); or iterative reconstruction. DLP: 1320.20 mGy.cm COMPARISON: 02/16/2025 at 11:10 a.m. No acute intracranial hemorrhage identified. This examination is post contrast for prior CT angiogram therefore there is some enhancement related to the recent injection. Small areas of hemorrhage would be obscured. There is no mass effect or midline shift. No atrophy or prior infarcts or herniation. Ventricles: Normal size with no hydrocephalus. Paranasal sinuses: As visualized are clear. Mastoid air cells: Well pneumatized. Calvarium and scalp: No fracture. New since the prior examination is a large scalp hematoma with increased density centered towards the RIGHT frontal vertex measuring 5.1 x 3.[address]/CT head wo con* [id number] IMPRESSION: 1. New acute RIGHT scalp hematoma centered towards the RIGHT frontal vertex. 2. No skull fracture. 3. No acute intracranial blood identified. Small acute hemorrhages may be obscured by the recent contrast injection. CT/CT angio headneck* [id number] IMPRESSION: 1. Normal carotid arteries. 2. Unremarkable [place]. 3. No arterial occlusions or aneurysms in the [place]. CT/CT head wo con* [id number] IMPRESSION: 1. No acute intracranial hemorrhage or edema. 2. Unremarkable noncontrast CT head. A&P Assessment and plan 1. Dizziness: 2. Nystagmus: Plan: Patient with a past medical history of bipolar disorder, currently presented today originally accompanying her son. However she was noted eventually to have an unsteady gait, complained of dizziness, suffered a fall as a result of the dizziness resulting in a scalp hematoma and also had nystagmus upon initial assessment. CT head and CTA of the head and neck taken before her fall were negative for acute stroke. Currently she does not have any other focal deficits. CT head and CT of the C-spine repeated after her fall, both negative for any acute trauma. Given her persistent dizziness, would want to rule out posterior circulation stroke therefore MRI without contrast has been ordered to assess for this possibility. Alternate differentials include BPPV for which we will give a trial of meclizine 25 mg p.o. 3 times daily and assess for improvement. Neuro monitoring while waiting for results of the MRI. Urine drug screen was negative for opiates barbiturates PCP, domains. Alcohol level undetectable. Check ammonia level and TSH. Known history of liver cirrhosis. PDMP PDMP Reviewed: Not Reviewed Attestations Medical Necessity Statement*: Less than 2 midnight stay is anticipated Coding Level of Care Code Acute Code for Chg Fwd High MDM includes number and complexity of problems actively addressed during encounter, amount and/or complexity of data reviewed/ordered and described risk of complication, morbidity or mortality of management as documented Diagnoses Dizziness R42 Nystagmus H55.00
[2025-02-16] MEDS: ondansetron 2 mg/ML SDV 2 mL 4 MG IVP (20:49)
[2025-02-17] VITALS (7 sets, daily range): BP systolic 98–131; BP diastolic 51–83; PULSE 74–99; RESP 16–19; TEMP 36.6–37.2; O2SAT 94–97
[2025-02-17 00:03] LABS: Ammonia 69 umol/L (11-51)
[2025-02-17 05:12] LABS: Hematocrit 35.4 % (36-47); Hemoglobin 11.90 g/dL (11.27-16.99); Mean Corpuscular HGB Conc 33.6 g/dL (30-55); Mean Corpuscular Hemoglobin 29.8 pg (27-33); Mean Corpuscular Volume 88.7 fl (85-98); Nucleated Red Blood Cells % 0 %; Platelet Count 184 10^3/cmm (157-399); Red Blood Count 3.99 10^6/uL (3.85-5.65); White Blood Count 4.32 10^3/uL (3.29-11.43)
[2025-02-17 05:44] LABS: Alanine Aminotransferase 9 U/L (0-33); Albumin Level 4.2 g/dL (3.5-5.2); Alkaline Phosphatase 93 U/L (35-105); Anion Gap 15.9 (5-19); Aspartate Amino Transferase 12 U/L (0-32); Blood Urea Nitrogen 11 mg/dL (6-20); Calcium 8.8 mg/dL (8.5-10.5); Carbon Dioxide 21 mmol/L (22-29); Chloride 108 mmol/L (98-107); Creatinine Clr Calc Pharmacy 99.3832; Globulin 2.7 g/dL (1.3-4.6); Glucose 102 mg/dL (65-115); Osmolality Calculated 292 mOsm/kg (285-295); Potassium 3.9 mmol/L (3.5-5.1); Sodium 141 mmol/L (136-145); Thyroid Stimulating Hormone 0.29 uIU/mL (0.27-4.20); Total Protein 6.9 g/dL (6.6-8.7)
--- NOTE | 2025-02-17 10:01 | PC.CHAP ---
Pastoral Care Encounter/Spiritual Assessment Type of Contact [] Declined home hospice aide visit [] Patient/Family/Request visit [] Outpatient visit [] Follow-up visit [] Physician referral [] Code/Alert [x] Routine visit [] Staff referral [] Actively dying [] Patient sleeping [x] Family support [] [] Out of room [] Palliative care [] [] Receiving care in room [] Pre-surgical visit [] Trauma [] Long length of stay [] ICU visit [] Other: Relational/Emotional Strength [x] Patient feels connected with others/family/visitors/staff [] Distress [] Loneliness/isolation [] Abandonment Spirituality of Patient [x] Person of Yanely [] Attends Protestant of their Yanely [x] Believes in Prayer [] Reads Bible or Rastafarian materials [] There are Spiritual issues to be addressed [employer] Interventions [x] Prayer [x] Active listening [x] Non-anxious presence [x] Spiritual/emotional support [] Crisis/trauma care [x] Spiritual counseling [] Bereavement support [] Provided bereavement packet [x] Provided Bible/devotional materials [] Provided toy/stuffed animal, coloring book to patient or family member [] Provided Communion [] Anointing/[place] [] Salvation [x] Completed spiritual assessment [] Other: Impact on Illness or Injury [] Angry [] Fearful [] Anxious [] Often cries [] Exhaustion [] Unable to work [] Unable to attend amish [] Unable to walk/stand [] Unable to read [] Unable to drive [] Unable to eat/drink [] Unable to sleep [] Unable to be with family [] Patient intubated [] Other: Summary Time spent with patient 10 min
--- NOTE | 2025-02-17 13:14 | PC.NURSE ---
Patient was given all discharge instructions. Patient was given all prescriptions. Patient's IV was taken out. Patient was stable during discharge.
--- NOTE | 2025-02-17 14:25 | PM.DCS ---
Discharge Providers Date of Admission: 02/16/25 15:49 Date of Discharge: February 17, 2025 Attending Provider at Admission: Rica Pritchard MD Attending Provider at Discharge: Rica Pritchard MD Primary Care Provider: Rebekah Gomez MD Diagnoses at Discharge Discharge Diagnosis 1. Dizziness: 2. Nystagmus: Reason for Visit Reason for Visit: seizure like activity Hospital Course Hospital Course 49 year old female with a past medical history of bipolar disorder, presented to the emergency room with persisting dizziness, nystagmus, and a fall in the emergency room. CT head, CTA head and neck and MRI head was negative for stroke, including posterior circulation stroke. Urine drug screen was negative for opiates barbiturates PCP. Alcohol level undetectable. Ammonia level mildly elevated at 69, no h/o liver cirrhosis, patient feels completely asymptomatic since starting meclizine, therefore unlikely that her symptoms were related to hyperammonemia.TSh normal. her symptoms were completely resolved by the next morning. She has been ambulating in the room freely without dizziness. No new complaints today. Physical Exam Narrative: General: No acute distress, AO x3 HEENT: PERRLA, pupils bilaterally equal and reactive, pallors not present Chest: Normal vesicular breath sounds, no added sounds, equal good air entry bilaterally CVS: S1-S2 regular, no murmurs, no tachycardia, no gallops, no rubs Abdomen: Soft, nontender, no organomegaly, bowel sounds present Neuro: No focal deficits, no facial deformity, AO x3, power 5/5 in all limbs Discharge Data Studies Completed and Pending Completed Studies During Hospitalization Category Date Time Status CT cervical spin wo con* [id number] Stat Cat Scan 02/16/25 14:[address] head wo con* [id number] Stat Cat Scan 02/16/25 10:[address] head wo con* [id number] Stat Cat Scan 02/16/25 14:32 Completed CTA head neck [CT angio headneck* [id number]] Stat Cat Scan 02/16/25 12:25 Completed MR head wo con* [id number] Routine MRI 02/16/25 14:29 Completed Radiology Impressions Head/Neck CTA 02/16/25 12:25 IMPRESSION: 1. Normal carotid arteries. 2. Unremarkable [place]. 3. No arterial occlusions or aneurysms in the [place]. Head MRI 02/16/25 14:29 IMPRESSION: 1. No acute appearing intracranial abnormality. 2. Right frontal scalp hematoma. Head CT 02/16/25 14:32 IMPRESSION: 1. New acute RIGHT scalp hematoma centered towards the RIGHT frontal vertex. 2. No skull fracture. 3. No acute intracranial blood identified. Small acute hemorrhages may be obscured by the recent contrast injection. Cervical Spine CT 02/16/25 14:33 IMPRESSION: 1. No acute cervical spine fracture. 2. Facet joint arthritis. 3. No high-grade central or foraminal stenosis. Laboratory Results WBC 4.32 10^3/uL (3.29-11.43) 02/17/25 04:23 RBC 3.99 10^6/uL (3.85-5.65) 02/17/25 04:23 Hgb 11.90 g/dL (11.27-16.99) 02/17/25 04:23 Hct 35.4 % (36-47) L 02/17/25 04:23 MCV 88.7 fl (85-98) 02/17/25 04:23 MCH 29.8 pg (27-33) 02/17/25 04:23 MCHC 33.6 g/dL (30-55) 02/17/25 04:23 RDW 12.6 % (12.1-15.1) 02/17/25 04:23 Plt Count 184 10^3/cmm (157-399) 02/17/25 04:23 MPV 9.8 fL (7.4-10.4) 02/17/25 04:23 Neut % (Auto) 37.7 % 02/17/25 04:23 Lymph % (Auto) 52.8 % 02/17/25 04:23 [place] % (Auto) 7.9 % 02/17/25 04:23 Eos % (Auto) 0.9 % 02/17/25 04:23 Baso % (Auto) 0.5 % 02/17/25 04:23 Neut # (Auto) 1.63 10^3/uL (1.8-7.7) L 02/17/25 04:23 Lymph # (Auto) 2.3 10^3/uL (0.8-4.8) 02/17/25 04:23 [place] # (Auto) 0.3 10^3/uL (0.2-0.9) 02/17/25 04:23 Eos # (Auto) 0.0 10^3/uL (0.0-0.8) 02/17/25 04:23 Baso # (Auto) 0.0 10^3/uL (0.0-0.1) 02/17/25 04:23 Nucleated RBC % (auto) 0 % 02/17/25 04:23 Nucleated RBCs # 0.0 /100WBC 02/17/25 04:23 Sodium 141 mmol/L (136-145) 02/17/25 04:23 Potassium 3.9 mmol/L (3.5-5.1) 02/17/25 04:23 Chloride 108 mmol/L (98-107) H 02/17/25 04:23 Carbon Dioxide 21 mmol/L (22-29) L 02/17/25 04:23 Anion Gap 15.9 (5-19) 02/17/25 04:23 BUN 11 mg/dL (6-20) 02/17/25 04:23 Creatinine 0.7 mg/dL (0.5-0.9) 02/17/25 04:23 GFR Calculation 88.6 mL/min (90-130) L 02/17/25 04:23 Glucose 102 mg/dL (65-115) 02/17/25 04:23 Calculated Osmolality 292 mOsm/kg (285-295) 02/17/25 04:23 Lactic Acid 1.8 mmol/L (0.5-2.2) 02/16/25 16:42 Calcium 8.8 mg/dL (8.5-10.5) 02/17/25 04:23 Magnesium 2.0 mg/dL (1.7-2.3) 02/16/25 10:48 Total Bilirubin 0.3 mg/dL (0.15-1.2) 02/17/25 04:23 AST 12 U/L (0-32) 02/17/25 04:23 ALT 9 U/L (0-33) 02/17/25 04:23 Alkaline Phosphatase 93 U/L (35-105) 02/17/25 04:23 Ammonia 69 umol/L (11-51) H 02/16/25 23:33 Creatine Kinase 78 U/L (26-192) 02/16/25 10:48 Total Protein 6.9 g/dL (6.6-8.7) 02/17/25 04:23 Albumin 4.2 g/dL (3.5-5.2) 02/17/25 04:23 Globulin 2.7 g/dL (1.3-4.6) 02/17/25 04:23 TSH 0.29 uIU/mL (0.27-4.20) 02/17/25 04:23 Urine Color Yellow (Yellow) 02/16/25 10:40 Urine Appearance Clear (CLEAR) 02/16/25 10:40 Urine pH 6.0 (5-7) 02/16/25 10:40 Ur Specific [place] 1.019 (1.005-1.030) 02/16/25 10:40 Urine Protein Trace (Negative) A 02/16/25 10:40 Urine Glucose (UA) Negative (Normal) 02/16/25 10:40 Urine Ketones Negative (Negative) 02/16/25 10:40 Urine Blood Negative (Negative) 02/16/25 10:40 Urine Nitrate Negative (Negative) 02/16/25 10:40 Urine Bilirubin Negative (Negative) 02/16/25 10:40 Urine Urobilinogen 0.2 mg/dL (Negative) 02/16/25 10:40 Ur Leukocyte Esterase Negative (Negative) 02/16/25 10:40 Urine RBC 0-2 /hpf (0-2) 02/16/25 10:40 Urine WBC 0-5 /hpf (0-5) 02/16/25 10:40 Ur Squamous Epith Cells 0-5 /hpf (0-5) 02/16/25 10:40 Amorphous Sediment Not Reportable 02/16/25 10:40 Urine Bacteria None seen /hpf (NONE) 02/16/25 10:40 Hyaline Casts 0.40 /lpf 02/16/25 10:40 Salicylates < 0.3 mg/dL (3-10) L 02/16/25 10:48 Urine Opiates Screen Negative ng/mL (Negative) 02/16/25 10:40 Acetaminophen < 5.0 ug/mL (10-30) L 02/16/25 10:48 Ur Barbiturates Screen Negative ng/mL (Negative) 02/16/25 10:40 Ur Phencyclidine Scrn Negative ng/mL (Negative) 02/16/25 10:40 Ur Amphetamines Screen Negative ng/mL (Negative) 02/16/25 10:40 U Benzodiazepines Scrn Negative ng/mL (Negative) 02/16/25 10:40 Urine Cocaine Screen Negative ng/mL (Negative) 02/16/25 10:40 U Marijuana (THC) Screen Negative ng/mL (Negative) 02/16/25 10:40 Ethyl Alcohol < 10 mg/dL (0-10) 02/16/25 10:48 Vitals Last Vital Signs Temp 98.6 F 02/17/25 11:24 Pulse 94 02/17/25 13:12 Resp 19 H 02/17/25 11:24 BP 117/77 02/17/25 13:12 Pulse Ox 95 02/17/25 13:12 O2 Del Method Room Air 02/17/25 11:24 Discharge Plan Discharge Patient Disposition: Home Condition: Stable Prescriptions: New meclizine 25 mg Tablet 25 mg PO TID PRN (Reason: prn) 30 Days Qty: 0 0RF Continued trazodone 100 mg tablet 200 mg PO BEDTIME PRN (Reason: insomnia) Qty: 60 2RF oxcarbazepine 300 mg tablet 300 mg PO BID 30 Days Qty: 60 1RF lamotrigine 200 mg tablet 400 mg PO QDAY Qty: 60 1RF clonazepam 1 mg tablet 1 mg PO DAILY PRN (Reason: anxiety or panic) Qty: 30 2RF topiramate 200 mg tablet 200 mg PO QPM Qty: 90 1RF gabapentin 300 mg capsule See Rx Instructions .ROUTE .COMPLEX Qty: 210 2RF Dose Instruction: Take 4 capsules BY MOUTH EVERY MORNING AND THREE AT NIGHT Rx Instructions: Take 4 capsules BY MOUTH EVERY MORNING AND THREE AT NIGHT Discharge Order = DC NOW: Discharge Order (Routine); Ordered 02/17/25 Ordered By: Rica Pritchard Referrals: Rebekah Gmoez MD [Primary Care Provider, Family Practice] - 03/17/25 1:30 pm Referral Note: Patient Instructions: Meclizine (By mouth), Altered Mental Status (ED), Dizziness (GEN), Opioid Safety, Patient Portal & [place] Instructions Discharge Attestations Time Spent in Discharge Care*: greater than 30 min Quality Metrics Clinical Quality Measures [ No reported AMI, CVA or VTE this stay] Coding Level of Care Code Acute Code for Chg Fwd Diagnoses Dizziness R42 Nystagmus H55.00
== END 2025-02-17 13:14 | disposition home or self-care (01) ==
LOC: ER 15:29 → MEDSURG 15:49
PROVIDERS: Admitting Provider Student in an Organized Health Care Education/Training Program; Emergency Provider Family Medicine; PCP Family Medicine; Visit Provider Student in an Organized Health Care Education/Training Program
DX: R42 Dizziness and giddiness (principal); H55.00 Unspecified nystagmus; W19.XXXA Unspecified fall, initial encounter; R73.03 Prediabetes; F31.9 Bipolar disorder, unspecified; Z87.891 Personal history of nicotine dependence
CPT/HCPCS: 36415; 70450; 70496; 70498; 70551; 72125; 80053; 80306; 80307; 81001; 82140; 82550; 83605; 83735; 84443; 85025; 93005; 96361; 96374; 96375; 99285; 99291; G0378; J2060; J2405; J7030; J8597; J9999

== ENCOUNTER 2025-03-11 15:07 | Emergency (ER) | payer MEDICAID, SELFPAY ==
[2024-09-25 13:54] VITALS: BP 115/81
[2024-09-25 13:58] VITALS: BMI 23.7
[2025-03-11 15:13] VITALS: BP 116/77; PULSE 77; RESP 16; TEMP 36.8; O2SAT 97; BMI 24.3
[2025-03-11 16:23] VITALS: BP 134/85; PULSE 73; RESP 14; O2SAT 97
--- NOTE | 2025-03-11 16:27 | CTR_ITS ---
PROCEDURE INFORMATION: Exam: CT Head Without Contrast Exam date and time: 03/11/2025 4:34 PM Age: 49 years old Clinical indication: Dizziness; PT arrivres via EMS from home. EMS stroke scale was negative; Reports deficits are bells palsy. PT C/O headache x 3 days. ; Additional info: Injury 2 days ago TECHNIQUE: Imaging protocol: Computed tomography of the head without contrast. Radiation optimization: All CT scans at this facility use at least one of these dose optimization techniques: automated exposure control; mA and/or kV adjustment per patient size (includes targeted exams where dose is matched to clinical indication); or iterative reconstruction. COMPARISON: MR head wo con* [id number] 02/16/2025 4:10 PM RADIATION DOSE METRICS: Total DLP (mGy-cm): 1037.95 FINDINGS: Brain: Normal. No hemorrhage. Unremarkable white matter. No mass effect or acute infarct. Cerebral ventricles: No ventriculomegaly. No midline shift. Paranasal sinuses: Visualized sinuses are unremarkable. No fluid levels. Mastoid air cells: Visualized mastoid air cells are well aerated. Bones: Unremarkable. No acute fracture. Soft tissues: Unremarkable. CT/CT head wo con* [id number] IMPRESSION: No acute intracranial abnormality.
--- NOTE | 2025-03-11 16:27 | W.ED.DIZZY ---
HPI - Dizziness General: Chief Complaint: Dizziness Stated Complaint: headache dizzy n/v Time Seen by Provider: 03/11/25 16:07 History of Present Illness: HPI Narrative: This pleasant 49-year-old lady that presents to the emergency room with head pain, dizziness. Her head hurts globally, and the dizziness has been ongoing for the last 3 days. These are similar to symptoms she had in February. She did hit her head again, on the frontal right portion of her head 2 days ago, and she has had ongoing headache since that time. She does have a history of migraines. This is different than normal with the ongoing dizziness. She does not have previous history of A-fib, CVA, or TIA. She is chronically on topiramate. Associated symptoms: Reports headache(s); Denies chest pain, chills, malaise, nausea, nasal congestion, palpitations or vomiting Associated neuro symptoms: Deny dysphagia or numbness in extremities Related Data Previous Rx's ?Medication ?Instructions ?Recorded topiramate 200 mg tablet 200 mg PO QPM #90 tabs 09/24/24 lamotrigine 200 mg tablet 400 mg (2 x 200 mg) PO QDAY #60 01/26/25 tabs oxcarbazepine 300 mg tablet 300 mg PO BID 30 days #60 tabs 01/26/25 trazodone 100 mg tablet 200 mg (2 x 100 mg) PO BEDTIME PRN 01/26/25 insomnia #60 tabs gabapentin 300 mg capsule See Rx Instructions .Route 02/16/25 .COMPLEX #210 caps meclizine 25 mg tablet 25 mg PO TID PRN prn 30 days #0 02/17/25 tabs clonazepam 1 mg tablet 1 mg PO DAILY PRN anxiety or panic 03/03/25 #30 tabs Allergies Allergy/AdvReac Type Severity Reaction Status Date / Time Sulfa (Sulfonamide Allergy Severe closed Verified 01/26/25 15:17 Antibiotics) throat haloperidol (From Haldol) Allergy Intermediate increased Verified 01/26/25 15:17 anxiety levofloxacin (From Levaquin) Allergy Intermediate hives Verified 01/26/25 15:17 ketorolac (From Toradol) Allergy ALGY-Swell Verified 01/26/25 15:17 Lip/Tongue/Throat metoclopramide (From Reglan) Allergy ALGY-Swell Verified 01/26/25 15:17 Lip/Tongue/Throat morphine Allergy ADR-Itching Verified 01/26/25 15:17 Review of Systems General: Reports: 10 or more systems reviewed and unremarkable except in HPI and below Const: Denies: fever(s), chills, body aches, fatigue or malaise Eyes: Denies: change in vision, blurry vision or photophobia ENMT: Reports: hoarseness; Denies: throat pain, enlarged tonsils, odynophagia or nasal congestion Card: Denies: chest pain, palpitations, irregular heart rhythm, edema, swelling of feet/ankles, lightheadedness, pre-syncope, dyspnea on exertion or orthopnea Resp: Denies: dyspnea, productive cough, non-productive cough, wheezing, stridor, pain on inspiration, change in phlegm color, hemoptysis or chest congestion GI: Denies: abdominal pain, nausea, vomiting, hematemesis, coffee ground emesis, dysphagia, heartburn, diarrhea, constipation, GI cramping, change in stool character, hematochezia or melena : Denies: flank pain, difficulty voiding, dysuria, urinary frequency, urinary urgency, urinary hesitancy or hematuria Musc: Denies: neck pain, back pain, extremity pain, joint swelling, joint warmth or deformity Neuro: Reports: headache(s), dizziness and difficulty communicating thoughts; Denies: numbness in extremities, weakness in extremities, sensory changes, lack of coordination, difficulty walking, frequent falls, vertigo, behavioral changes, Slurred speech present or seizure-like activity Psych: Denies: anxiety, depression, suicidal ideation or homicidal ideation Endo: Denies: polyuria, polydipsia, tired all the time, cold intolerance or hot flashes Isaias/Lymph: Denies: easy bruising or easy bleeding PFSH ED PFSH: Medical History (Updated 03/11/25 @ 17:32 by EDE Dia) Involuntary commitment Prediabetes Nicotine use disorder Acne rosacea Psychiatric care Osteonecrosis of hip Bipolar disorder Migraines Surgical History Hx of cholecystectomy S/P colonoscopic polypectomy 10.23.23 at [facility]--polyps--repeat 5 yrs Hx of bilateral inguinal hernia repair Hx of section x1 History of appendectomy S/P hysterectomy with oophorectomy BSO; done for endometriosis; no cancer H/O shoulder replacement R shoulder Hx of breast biopsy left; it was benign History of surgery of head excision of forehead cyst History of hip replacement, total right Family History Other Diabetes Hypertension Social History Smoking and tobacco/nicotine status: former use of tobacco/nicotine Quit status (tobacco/nicotine): has quit using Alcohol intake: former Substance/Drug Use: never Additional social history: vapes now Lives independently: No Household members: other Details: parents Housing: House Marital status: Number of children: 1 Highest education level completed: Associate Degree: Academic Program Current occupational status: previously employed 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; 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 Pets and animals: Yes Pets & animals: dog(s) Leisure activites: art and reading Sexually active: No Do you think of yourself as: Straight/Heterosexual Current gender identity: Female Yanely/Sabianism: Advent Special yanely needs: No Agree to transfusion: Yes Female Reproductive History: Para: 1 Physical Exam Const: COMMON NORMALS: no acute distress, average body habitus and patient oriented x3 HENMT: COMMON NORMALS: normocephalic, atraumatic and hearing grossly normal bilaterally HEAD & SCALP: normocephalic and atraumatic Neck/C-Spine: COMMON NORMALS: full ROM and no lymphadenopathy Lymph: LYMPHATIC: no lymphadenopathy noted Chest: COMMONS NORMALS: normal inspection of the chest and normal palpation of entire chest wall Resp: COMMON NORMALS: normal respiratory effort, No retractions and clear to auscultation bilaterally AUSCULTATION: clear to auscultation bilaterally Cardio: COMMON NORMALS: regular rate and regular rhythm RATE: regular rate RHYTHM: regular rhythm GI: COMMON NORMALS: Normal to inspection, nondistended, normoactive bowel sounds present, Soft to palpation, non-tender and No hepatosplenomegaly present PALPATION: Yes Soft to palpation and Yes No hepatosplenomegaly present : COMMON NORMALS: Yes no CVA tenderness BLADDER/KIDNEY EXAM: Yes no CVA tenderness Back/Pelvis: COMMON NORMALS: no CVA tenderness Extremity: COMMON NORMALS: normal to inspection, full ROM and capillary refill normal Neuro: COMMON NORMALS: patient oriented x3, CN's II-XII intact bilaterally and moves all extremities Psych: COMMON NORMALS: mental status grossly normal, Normal thought process present and cooperative THOUGHT PROCESS: Normal thought process present Course Vital Signs: Vital signs: Vital Signs Temperature 98.2 F 03/11/25 15:13 Pulse Rate 76 03/11/25 17:42 Respiratory Rate 14 03/11/25 16:23 Blood Pressure 101/68 03/11/25 17:42 Pulse Oximetry 96 03/11/25 17:42 Oxygen Delivery Me thod Room Air 03/11/25 17:32 MDM - Dizziness Medical Decision Making Patient is a 49-year-old female that presented with a headache, and vague symptoms of dizziness, transient slurred speech that she was not noticing. Patient was concerned regarding Strange palsy, however none of her exam is consistent with Strange's palsy. I do suspect atypical migraine given history, and exam. Her CT of her head is negative. Since this has occurred for multiple days, CVA is not on the list of differentials, and no additional workup will need to be done regarding CVA concern. Medical Records I reviewed the patient's medical records. Lab Data I reviewed the patient's lab results. 03/11/25 16:18 03/11/25 16:[address] 03/11/25 16:27 IMPRESSION: No acute intracranial abnormality. Laboratory Results WBC 5.02 10^3/uL (3.29-11.43) 03/11/25 16:18 RBC 4.08 10^6/uL (3.85-5.65) 03/11/25 16:18 Hgb 12.10 g/dL (11.27-16.99) 03/11/25 16:18 Hct 36.1 % (36-47) 03/11/25 16:18 MCV 88.5 fl (85-98) 03/11/25 16:18 MCH 29.7 pg (27-33) 03/11/25 16:18 MCHC 33.5 g/dL (30-55) 03/11/25 16:18 RDW 12.7 % (12.1-15.1) 03/11/25 16:18 Plt Count 209 10^3/cmm (157-399) 03/11/25 16:18 MPV 9.8 fL (7.4-10.4) 03/11/25 16:18 Neut % (Auto) 30.6 % 03/11/25 16:18 Lymph % (Auto) 59.4 % 03/11/25 16:18 Walton % (Auto) 6.8 % 03/11/25 16:18 Eos % (Auto) 2.4 % 03/11/25 16:18 Baso % (Auto) 0.6 % 03/11/25 16:18 Neut # (Auto) 1.54 10^3/uL (1.8-7.7) L 03/11/25 16:18 Lymph # (Auto) 3.0 10^3/uL (0.8-4.8) 03/11/25 16:18 Walton # (Auto) 0.3 10^3/uL (0.2-0.9) 03/11/25 16:18 Eos # (Auto) 0.1 10^3/uL (0.0-0.8) 03/11/25 16:18 Baso # (Auto) 0.0 10^3/uL (0.0-0.1) 03/11/25 16:18 Nucleated RBC % (auto) 0 % 03/11/25 16:18 Nucleated RBCs # 0.0 /100WBC 03/11/25 16:18 Sodium 141 mmol/L (136-145) 03/11/25 16:18 Potassium 3.8 mmol/L (3.5-5.1) 03/11/25 16:18 Chloride 104 mmol/L (98-107) 03/11/25 16:18 Carbon Dioxide 25 mmol/L (22-29) 03/11/25 16:18 Anion Gap 15.8 (5-19) 03/11/25 16:18 BUN 12 mg/dL (6-20) 03/11/25 16:18 Creatinine 1.0 mg/dL (0.5-0.9) H 03/11/25 16:18 GFR Calculation 58.7 mL/min (90-130) L 03/11/25 16:18 Glucose 93 mg/dL (65-115) 03/11/25 16:18 Calculated Osmolality 291 mOsm/kg (285-295) 03/11/25 16:18 Calcium 9.6 mg/dL (8.5-10.5) 03/11/25 16:18 Total Bilirubin 0.2 mg/dL (0.15-1.2) 03/11/25 16:18 AST 14 U/L (0-32) 03/11/25 16:18 ALT 13 U/L (0-33) 03/11/25 16:18 Alkaline Phosphatase 103 U/L (35-105) 03/11/25 16:18 Total Protein 7.7 g/dL (6.6-8.7) 03/11/25 16:18 Albumin 4.9 g/dL (3.5-5.2) 03/11/25 16:18 Globulin 2.8 g/dL (1.3-4.6) 03/11/25 16:18 Lipase 55 U/L (13-60) 03/11/25 16:18 All radiology interpretation(s) finalized by discharge Discharge Plan Discharge Patient Disposition: Home Clinical Impression: Atypical cluster headache Condition: Stable Prescriptions: No Action trazodone 100 mg tablet 200 mg PO BEDTIME PRN (Reason: insomnia) Qty: 60 2RF oxcarbazepine 300 mg tablet 300 mg PO BID 30 Days Qty: 60 1RF lamotrigine 200 mg tablet 400 mg PO QDAY Qty: 60 1RF topiramate 200 mg tablet 200 mg PO QPM Qty: 90 1RF gabapentin 300 mg capsule See Rx Instructions .ROUTE .COMPLEX Qty: 210 2RF Dose Instruction: Take 4 capsules BY MOUTH EVERY MORNING AND THREE AT NIGHT Rx Instructions: Take 4 capsules BY MOUTH EVERY MORNING AND THREE AT NIGHT clonazepam 1 mg tablet 1 mg PO DAILY PRN (Reason: anxiety or panic) Qty: 30 3RF meclizine 25 mg Tablet 25 mg PO TID PRN (Reason: prn) 30 Days Qty: 0 0RF Discharge Orders: Discharge ED (Routine); Ordered 03/11/25 Ordered By: Sachi Ny Referrals: Rebekah Gomez MD [Primary Care Provider, Family Practice] Discharge Diet: Usual diet Discharge Activity: Resume usual activity Patient Instructions: Migraine Headache (ED), Patient Portal & [place] Instructions Activity Restrictions/Additional Instructions: - Low-salt diet will help with your headaches - Follow-up with your doctor. Call for an appointment for prophylaxis. - Increase your fluid intake today. Drink an additional 20 ounces of noncaffeinated beverages today before bed - Return to the ED for further issues - Normal consumption of noncaffeinated beverages in a day: 64 ounces Print Language: Stateless Coding Level of Care Code ED Photo Checker And Assembler for Flor Alejandro
[2025-03-11 16:29] LABS: Hematocrit 36.1 % (36-47); Hemoglobin 12.10 g/dL (11.27-16.99); Mean Corpuscular HGB Conc 33.5 g/dL (30-55); Mean Corpuscular Hemoglobin 29.7 pg (27-33); Mean Corpuscular Volume 88.5 fl (85-98); Nucleated Red Blood Cells % 0 %; Platelet Count 209 10^3/cmm (157-399); Red Blood Count 4.08 10^6/uL (3.85-5.65); White Blood Count 5.02 10^3/uL (3.29-11.43)
[2025-03-11 16:46] LABS: Alanine Aminotransferase 13 U/L (0-33); Albumin Level 4.9 g/dL (3.5-5.2); Alkaline Phosphatase 103 U/L (35-105); Anion Gap 15.8 (5-19); Aspartate Amino Transferase 14 U/L (0-32); Blood Urea Nitrogen 12 mg/dL (6-20); Calcium 9.6 mg/dL (8.5-10.5); Carbon Dioxide 25 mmol/L (22-29); Chloride 104 mmol/L (98-107); Creatinine Clr Calc Pharmacy 71.5806; Globulin 2.8 g/dL (1.3-4.6); Glucose 93 mg/dL (65-115); Lipase 55 U/L (13-60); Osmolality Calculated 291 mOsm/kg (285-295); Potassium 3.8 mmol/L (3.5-5.1); Sodium 141 mmol/L (136-145); Total Protein 7.7 g/dL (6.6-8.7)
[2025-03-11] MEDS: orphenadrine 30 mg/mL Inj 2 mL 60 MG IM (16:49)
[2025-03-11 17:25] VITALS: BP 108/80; PULSE 77; O2SAT 94
[2025-03-11 17:32] VITALS: BP 98/76; O2SAT 94
[2025-03-11 17:42] VITALS: BP 101/68; PULSE 76; O2SAT 96
== END 2025-03-11 17:44 | disposition home or self-care (01) ==
PROVIDERS: Emergency Medicine; Emergency Provider Physician Assistant; PCP Family Medicine
DX: G44.009 Cluster headache syndrome, unspecified, not intractable (principal); Z87.891 Personal history of nicotine dependence
CPT/HCPCS: 36415; 70450; 80053; 83690; 85025; 96372; 99284; J1100; J2360

== ENCOUNTER 2025-04-13 13:15 | Outpatient (CLI) | payer SELFPAY ==
[2025-03-12 09:14] VITALS: BP 115/81; BMI 23.7
--- NOTE | 2025-04-13 13:20 | MM_ITS ---
WS: [id number] BILATERAL 3D TOMOSYNTHESIS DIGITAL SCREENING MAMMOGRAPHY WITH CAD CLINICAL INFORMATION: screening HISTORY: Screening mammogram. No current complaints. COMPARISON: 2021 TECHNIQUE: Bilateral CC and MLO views. FINDINGS: Scattered fibroglandular densities bilaterally. No suspicious focal mass, asymmetry, calcifications, or architectural distortion. No evidence of malignancy. Incidental punctate and lucent centered calcifications. MM/MM scr tomosynthesis [id number] IMPRESSION: DENSITY: There are scattered areas of fibroglandular density. BI-RADS: 2 - Benign. FOLLOW UP: 1 Year Follow-up Recommend return to annual screening mammography.
== END 2025-04-13 13:16 | disposition home or self-care (01) ==
LOC: RAD 13:16
PROVIDERS: PCP Family Medicine; Visit Provider Family Medicine
DX: Z12.31 Encounter for screening mammogram for malignant neoplasm of breast (principal); R92.323 Mammographic fibroglandular density, bilateral breasts; R92.1 Mammographic calcification found on diagnostic imaging of breast
CPT/HCPCS: 77063; 77067